=== PATIENT | male | born 1940 | race Caucasian/White ===

== ENCOUNTER 2020-01-02 17:08 | Outpatient (CLI) | payer MEDICARE, SELFPAY ==
[2020-01-02 17:36] LABS: Basophils Percent Auto 0.8 % (0.2-1.2); Eosinophils Absolute Auto 0.1 K/mm3 (0-0.3); Eosinophils Percent Auto 1.4 % (0-4.4); Hematocrit 40.9 % (42.0-52.0); Hemoglobin 14.9 g/dL (14.0-18.0); Immature Granulocyte Absolute 0.01 K/mm3 (0.00-0.031); Immature Granulocyte Percent A 0.2 % (0-0.5); Lymphocytes Absolute Auto 1.87 K/mm3 (0.9-3.2); Lymphocytes Percent Auto 37.5 % (18.3-44.2); Mean Corpuscular HGB Conc 36.4 g/dl (32-36); Mean Corpuscular Hemoglobin 31.7 pg (26-34); Mean Platelet Volume 9.8 fl (7.4-10.4); Monocytes Absolute Auto 0.5 K/mm3 (0.1-0.6); Monocytes Percent Auto 9.4 % (2.6-8.5); Neutrophils Absolute Auto 2.5 K/mm3 (1.3-6.7); Neutrophils Percent Auto 50.7 % (45.5-73.1); Platelet Count Result 141 k/mm3 (150-375); Red Cell Distribution Width 12.7 % (11.5-14.5)
[2020-01-02 17:52] LABS: Alanine Aminotransferase 28 U/L (4-50); Albumin Level 4.3 g/dL (3.5-5.1); Alkaline Phosphatase 66 U/L (38-126); Anion Gap 6 mmol/L (8-16); Aspartate Amino Transferase 30 U/L (17-59); Bilirubin,Total 1.2 mg/dL (0.2-1.3); Blood Urea Nitrogen 16 mg/dL (9-20); Calcium 8.7 mg/dL (8.4-10.2); Carbon Dioxide 30 mmol/L (22-30); Chloride 104 mmol/L (98-107); Cholesterol 142 mg/dL (0-200); Estimated Glomerular Filt Rate > 60; Glucose 126 mg/dL (75-110); HDL Direct 30 mg/dL; Potassium 3.5 mmol/L (3.4-5.0); Sodium 140 mmol/L (137-145); Triglycerides 239 mg/dL (<150)
[2020-01-02 18:05] LABS: LDL Cholesterol Direct 83 mg/dL
[2020-01-02 18:14] LABS: Hemoglobin A1C 5.1 % (<5.7)
[2020-01-02 18:25] LABS: Prostate Specific Antigen 0.3 ng/mL (< OR = 4.0); Thyroid Stimulating Hormone 0.922 uIU/mL (0.465-4.680)
[2020-01-02 18:48] LABS: Vitamin D 25 Hydroxy 44.4 ng/mL
[2020-01-02 19:00] LABS: Folic Acid 14.4 ng/mL (2.76->20)
== END 2020-01-02 17:09 | disposition home or self-care (01) ==
PROVIDERS: PCP Internal Medicine; Visit Provider Internal Medicine
DX: E55.9 Vitamin D deficiency, unspecified (principal); E78.49 Other hyperlipidemia; R53.83 Other fatigue; R73.9 Hyperglycemia, unspecified; Z12.5 Encounter for screening for malignant neoplasm of prostate
CPT/HCPCS: 36415; 80053; 80061; 82306; 82607; 82746; 83036; 84153; 84443; 85025; G0103

== ENCOUNTER 2020-01-23 07:07 | Outpatient (CLI) | payer MEDICARE, SELFPAY ==
--- NOTE | 2020-01-23 | EST_ITS ---
Patient Info Name: Karthik Carrera Age: 80 years : 1940 Gender: Male Ht: 69 in Wt: 200 lbs BSA: 2.12 m2 Exam Date: 01/23/2020 9:03 AM Exam Location: [facility] Patient Status: Outpatient Admit Date: 01/23/2020 Staff Ordering Physician: Eliazar Case DO Attending Provider: Eliazar Case DO Exercise Technologist: Jose Mathis RDCS, RT Exercise Physician: El Hoffman DO Exam Type: CA stress sarthak w NM Study Info A regadenoson stress test was performed. Summary 1. 1. Negative lexiscan stress test for ischemic ST changes by ECG criteria. 2. 2. Baseline hypertension. 3. 3. Nuclear scan to follow and will be reported separately. Please correlate with it. 4. 4. Patient informed of the above results. Protocol: Lexiscan Stress ECG Details Stage: REST Duration (min): 6 min : 33 sec HR (bpm): 55 SBP (mmHg): 200 DBP (mmHg): 84 Stage: STAGE 1 Duration (min): 0 min : 59 sec HR (bpm): 78 SBP (mmHg): 200 DBP (mmHg): 84 Stage: RECOVERY Duration (min): 1 min : 0 sec HR (bpm): 78 SBP (mmHg): 209 DBP (mmHg): 80 Stage: RECOVERY Duration (min): 2 min : 0 sec HR (bpm): 72 SBP (mmHg): 209 DBP (mmHg): 80 Stage: RECOVERY Duration (min): 3 min : 0 sec HR (bpm): 70 SBP (mmHg): 209 DBP (mmHg): 80 Stage: RECOVERY Duration (min): 3 min : 35 sec HR (bpm): 70 SBP (mmHg): 194 DBP (mmHg): 81 Rest HR: 55 bpm Peak HR: 82 bpm Rest Sys BP: 200 mmHg Peak Sys BP: 209 mmHg Max Pred HR: 141 bpm % Max Pred HR: 58 % Target HR: 120 bpm Max RPP: 17,138 bpm*mmHg Termination Reason: Completed protocol Cardiac Symptoms: Shortness of breath Total Time: 1 min : 0 sec Rest Dupont BP: 84 mmHg Peak Dupont BP: 80 mmHg Total Dose: 0.4 mg Resting ECG Sinus rhythm, BRWP, with borderline ST abnormality in high lateral leads. Stress ECG No ST changes. Arrhythmias None. Report Signatures
--- NOTE | ~2020-01-23 | NM_ITS ---
EXAMINATION: NM sarthak stress w perfusion DATE: 01/23/2020 10:44 INDICATION: Chest pain, unspecified. TECHNIQUE: Rest images were obtained following intravenous administration of 10.2 mCi Tc99m tetrofosm in (Myoview). The patient was infused intravenously with Lexiscan (regadenoson). Then, 30.9 mCi Tc99m tetrofosmin (Myoview) was administered intravenously, and stress images were obtained. Data was irvin nstructed into short axis and horizontal and vertical long axis SPECT images. Gated SPECT images were also obtained. COMPARISON: CT abdomen and pelvis 01/29/2014 FINDINGS: There is no definite reversible or fixed perfusion abnormality to suggest ischemia or infar ction. There is no segmental wall motion abnormality. Left ventricular ejection fraction measures 6 9%. IMPRESSION: 1. No definite ischemia or infarct. 2. Normal left ventricular ejection fraction measuring 69%. Reviewed, dictated and finalized at location A.
== END 2020-01-23 07:08 | disposition home or self-care (01) ==
PROVIDERS: PCP Internal Medicine; Visit Provider Internal Medicine
DX: R07.9 Chest pain, unspecified (principal)
CPT/HCPCS: 78452; 93017; A9502; J2785

== ENCOUNTER 2020-02-27 09:58 | Outpatient (CLI) | payer MEDICARE, SELFPAY ==
--- NOTE | ~2020-02-27 | XR_ITS ---
XR_CERV2-3V_CR DATE: 02/27/2020 10:11 INDICATION: Chronic neck and mid back pain TECHNIQUE: AP, open-mouth, lateral views COMPARISON: None FINDINGS: C1 and C2 are normally aligned and the odontoid process is intact. C2-3 interspace is well preserved. There is mild posterior spurring and minimal retrolisthesis at C3-4. There is mild degenerative disc disease at C4-5. There is mild anterolisthesis and mild degenerative spurring at C5-6 There is severe degenerative disease at C6-7. Degenerative changes at the apophyseal and uncovertebral joint joints of the mid and lower cervical s pine. No fracture or dislocation or locked facet or prevertebral soft tissue swelling. IMPRESSION: Degenerative changes Reviewed, dictated and finalized at Location A. Reviewed, dictated and finalized at location A. IMPRESSION: Degenerative changes
--- NOTE | ~2020-02-27 | XR_ITS ---
XR thoracic spine 2V DATE: 02/27/2020 10:11 INDICATION: Mid back pain TECHNIQUE: AP and lateral views COMPARISON: None FINDINGS: Diffuse osteopenia. Diffuse idiopathic skeletal hyperostosis of the thoracic spine. There is moderate probable chronic compression fracture deformity of T11. No other fracture or bone destruction is evident. No paraspinal soft tissue thickening. IMPRESSION: Diffuse osteopenia Diffuse idiopathic skeletal hyperostosis of the thoracic spine Probable chronic compression fracture deformity of T11 Reviewed, dictated and finalized at location A.
== END 2020-02-27 09:59 | disposition home or self-care (01) ==
LOC: ANHLAB 10:00 → ANHIMG 10:03
PROVIDERS: PCP Internal Medicine; Visit Provider Internal Medicine
DX: M54.2 Cervicalgia (principal); G89.29 Other chronic pain; M85.88 Other specified disorders of bone density and structure, other site
CPT/HCPCS: 72040; 72070

== ENCOUNTER → 2020-05-25 06:58 | Outpatient (CLI) | payer MEDICARE, SELFPAY ==
--- NOTE | ~2020-05-25 | MR_ITS ---
EXAMINATION: MR lumbar spine wo con DATE: 05/25/2020 08:39 INDICATION: Lumbar radiculopathy. TECHNIQUE: Magnetic resonance imaging (MRI) of the lumbar spine was performed without intravenous con trast. Sequences included sagittal T2-weighted FSE, sagittal T2-weighted FS FSE, sagittal T1-weighted FSE, and axial T2-weighted FSE. COMPARISON: CT abdomen and pelvis dated 01/29/2014 FINDINGS: Mild cervical levocurvature. 3 mm retrolisthesis T12 on L1, L1-2 millimeters retrolisthesis L2 on L3 and 6 mm anterolisthesis of L4 on L5. Chronic anterior wedging with 20% anterior vertebral body heigh t loss at T11 and <20% anterior vertebral body height loss at T12. There are Schmorl's nodes along a few of the endplates in the lumbar and lower thoracic spine. There are also scattered fibrofatty dege nerative endplate changes with mild heterogeneous red and yellow marrow signal. Severe left-sided dis c height loss at L5-S1. Mild to moderate right-sided predominant disc height loss at L4-L5. Moderate disc height loss at T12-L1 and mild disc height loss at the remaining levels between T10-T11 and L3-L 4. The conus medullaris terminates at L1. There is normal signal in the caudal spinal cord. Vascular disease with degenerative changes along the cephalad and caudal margin of the lumbar spinous processe s. Paravertebral soft tissues are unremarkable. The following disc levels are specifically discussed: T11-T12: Disc is mildly bulging. There is mild bilateral facet osteoarthritis. There is no neural for aminal stenosis. There is mild central canal stenosis. T12-L1: Disc is bulging with annular fissure. There is mild bilateral facet joint osteoarthritis. The re is mild bilateral neural foraminal stenosis. There is mild central canal stenosis. L1-L2: Disc is mildly bulging. There is mild bilateral facet joint osteoarthritis. There is mild bila teral neural foraminal stenosis. There is minimal central canal stenosis. L2-L3: Disc is mildly bulging with superimposed annular fissure and disc extrusion extending for mill imeter caudal to the level of the superior endplate of L3 at the right lateral recess. There is mild bilateral facet joint osteoarthritis. There is mild left and mild to moderate right neural foraminal stenosis. There is mild central canal stenosis along with mild narrowing of the right lateral recess. L3-L4: Disc is bulging. There is mild bilateral facet joint osteoarthritis. There is moderate left an d mild to moderate right neural foraminal stenosis. There is mild central canal stenosis. L4-L5: Disc is bulging. There is severe bilateral facet joint osteoarthritis. There is mild to modera te bilateral neural foraminal stenosis. There is moderate central canal stenosis. L5-S1: Disc is bulging. There is mild right and moderate left facet joint osteoarthritis. There is al so moderate right and moderate to severe left neural foraminal stenosis. There is mild central canal stenosis with mild narrowing of the left lateral recess. IMPRESSION: 1. Moderate to severe lower lumbar predominant spondylosis. Reviewed, dictated and finalized at location B. 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
--- NOTE | ~2020-05-25 | MR_ITS ---
EXAMINATION: MR thoracic spine wo con EXAM DATE: 05/25/2020 08:39 INDICATION: Thoracic back pain. TECHNIQUE: Multi-sequential, multiplanar MR images of the thoracic spine were obtained without contra st. Sagittal T1, T2, T2 fat saturation, axial T2 weighted images reviewed. There is no prior study for comparison. FINDINGS: There is moderate diffuse thoracic disc disease, mild facet arthropathy. Mild diffuse loss of vertebral body heights. There is 3 mm retrolisthesis T12 on L1, 2 mm retrolisthesis of T11 on T12. The vertebral bodies are otherwise aligned. Mild thoracic disc bulges. Thoracic neural foramen and c entral canal are widely patent. The spinal cord signal intensity and intrinsic morphology is normal. No suspicious focal marrow signal abnormalities. Paraspinal soft tissue is unremarkable. IMPRESSION: Moderate thoracic disc disease, mild facet arthropathy. No stenosis. Reviewed, dictated and finalized at location A. 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 No stenosis .
--- NOTE | ~2020-05-25 | MR_ITS ---
EXAMINATION: MR cervical spine wo con DATE: 05/25/2020 08:38 INDICATION: Cervical radiculopathy. TECHNIQUE: Magnetic resonance imaging (MRI) of the cervical spine was performed without intravenous c ontrast. Sequences included sagittal T2-weighted FSE, sagittal T2-weighted FS FSE, sagittal T1-weight ed FSE, axial MERGE, and axial T2-weighted FSE. COMPARISON: Cervical spine radiographs 02/27/2020 FINDINGS: There is 2 mm retrolisthesis of C3 on C4 and 3 mm anterolisthesis of C7 on T1. There is mil d chronic anterior wedging of T1-T4 vertebral bodies. There is severely decreased disc height at C3-C 4, mildly decreased disc height at C5-C6, and moderately decreased disc height at C6-C7 and C7-T1. Th e spinal cord signal intensity is normal. The following disc levels are specifically discussed: C2-C3: The disc does not extend beyond the endplate margin. There is no uncovertebral joint osteoarth ritis. There is severe right and moderate left facet joint osteoarthritis. There is mild bilateral ne ural foraminal stenosis. There is no central canal stenosis. C3-C4: The disc is bulging. There is moderate right and severe left uncovertebral joint osteoarthriti s. There is mild bilateral facet joint osteoarthritis. There is mild right and moderate left neural f oraminal stenosis. There is mild central canal stenosis. C4-C5: The disc is bulging. There is moderate bilateral uncovertebral joint osteoarthritis. There is severe bilateral facet joint osteoarthritis. There is moderate bilateral neural foraminal stenosis. T here is no central canal stenosis. C5-C6: The disc does not extend beyond the endplate margin. There is mild right and severe left uncov ertebral joint osteoarthritis. There is severe bilateral facet joint osteoarthritis. There is mild ri ght and moderate left neural foraminal stenosis. There is mild central canal stenosis. C6-C7: The disc is bulging. There is severe bilateral uncovertebral joint osteoarthritis. There is no facet joint osteoarthritis. There is mild bilateral neural foraminal stenosis. There is mild central canal stenosis. C7-T1: The disc does not extend beyond the endplate margin. There is mild left uncovertebral joint os teoarthritis. There is severe bilateral facet joint osteoarthritis. There is mild bilateral neural fo raminal stenosis. There is mild central canal stenosis. IMPRESSION: 1. Severe cervical spondylosis. Reviewed, dictated and finalized at location A. ICAL REGISTERED NURSE
== END ==
PROVIDERS: PCP Internal Medicine; Visit Provider Nurse Practitioner Adult Health
DX: M54.6 Pain in thoracic spine (principal); M54.16 Radiculopathy, lumbar region; M54.12 Radiculopathy, cervical region; M47.815 Spondylosis without myelopathy or radiculopathy, thoracolumbar region; M47.813 Spondylosis without myelopathy or radiculopathy, cervicothoracic region; M48.03 Spinal stenosis, cervicothoracic region; M47.817 Spondylosis without myelopathy or radiculopathy, lumbosacral region; M48.07 Spinal stenosis, lumbosacral region
CPT/HCPCS: 72141; 72146; 72148

== ENCOUNTER 2020-07-07 09:19 | Outpatient (CLI) | payer MEDICARE, SELFPAY ==
[2020-07-07 09:49] LABS: Basophils Percent Auto 0.8 % (0.2-1.2); Eosinophils Absolute Auto 0.2 K/mm3 (0-0.3); Eosinophils Percent Auto 3.2 % (0-4.4); Hematocrit 41.3 % (42.0-52.0); Immature Granulocyte Absolute 0.01 K/mm3 (0.00-0.031); Immature Granulocyte Percent A 0.2 % (0-0.5); Immature Platelet Fraction Pct 2.6 % (0.9-11.2); Lymphocytes Absolute Auto 1.72 K/mm3 (0.9-3.2); Lymphocytes Percent Auto 34.6 % (18.3-44.2); Mean Corpuscular HGB Conc 36.3 g/dl (32-36); Mean Corpuscular Hemoglobin 31.5 pg (26-34); Mean Corpuscular Volume 86.8 fl (80-100); Mean Platelet Volume 9.2 fl (7.4-10.4); Monocytes Absolute Auto 0.5 K/mm3 (0.1-0.6); Monocytes Percent Auto 10.1 % (2.6-8.5); Neutrophils Absolute Auto 2.5 K/mm3 (1.3-6.7); Neutrophils Percent Auto 51.1 % (45.5-73.1); Platelet Count Result 158 k/mm3 (150-375); Red Blood Count 4.76 M/mm3 (4.6-6.20)
[2020-07-07 10:06] LABS: Alanine Aminotransferase 23 U/L (4-50); Alkaline Phosphatase 75 U/L (38-126); Anion Gap 5 mmol/L (8-16); Aspartate Amino Transferase 28 U/L (17-59); Bilirubin,Total 1.2 mg/dL (0.2-1.3); Blood Urea Nitrogen 19 mg/dL (9-20); Calcium 8.4 mg/dL (8.4-10.2); Carbon Dioxide 30 mmol/L (22-30); Chloride 106 mmol/L (98-107); Estimated Glomerular Filt Rate > 60; Glucose 114 mg/dL (75-110); Potassium 3.8 mmol/L (3.4-5.0); Sodium 141 mmol/L (137-145)
[2020-07-07 11:23] LABS: Hemoglobin A1C 5.4 % (<5.7)
== END 2020-07-07 09:20 | disposition home or self-care (01) ==
PROVIDERS: PCP Internal Medicine; Visit Provider Internal Medicine
DX: R53.83 Other fatigue (principal); I10 Essential (primary) hypertension; R73.9 Hyperglycemia, unspecified
CPT/HCPCS: 36415; 80053; 83036; 85025; 85055

== ENCOUNTER 2020-07-09 09:32 | Outpatient (CLI) | payer MEDICARE, SELFPAY ==
[2020-07-14 00:39] LABS: Metanephrine, Total Urine 414 mcg/24 h (224-832); Metanephrine, Urine 94 mcg/24 h (90-315); Normetanephrine, Urine 320 mcg/24 h (122-676)
== END 2020-07-09 09:33 | disposition home or self-care (01) ==
PROVIDERS: PCP Internal Medicine; Visit Provider Internal Medicine
DX: I10 Essential (primary) hypertension (principal)
CPT/HCPCS: 83835

== ENCOUNTER 2020-12-06 09:30 | Outpatient (CLI) | payer MEDICARE, SELFPAY ==
[2020-12-06 10:03] LABS: Basophils Percent Auto 0.7 % (0.2-1.2); Eosinophils Absolute Auto 0.1 K/mm3 (0-0.3); Eosinophils Percent Auto 2.1 % (0-4.4); Immature Granulocyte Absolute 0.02 K/mm3 (0.00-0.031); Immature Granulocyte Percent A 0.3 % (0-0.5); Lymphocytes Absolute Auto 2.23 K/mm3 (0.9-3.2); Lymphocytes Percent Auto 38.3 % (18.3-44.2); Mean Corpuscular HGB Conc 35.6 g/dl (32-36); Mean Corpuscular Hemoglobin 30.4 pg (26-34); Mean Corpuscular Volume 85.6 fl (80-100); Mean Platelet Volume 9.5 fl (7.4-10.4); Monocytes Absolute Auto 0.6 K/mm3 (0.1-0.6); Monocytes Percent Auto 10.7 % (2.6-8.5); Neutrophils Absolute Auto 2.8 K/mm3 (1.3-6.7); Neutrophils Percent Auto 47.9 % (45.5-73.1); Platelet Count Result 155 k/mm3 (150-375); Red Blood Count 5.26 M/mm3 (4.6-6.20); Red Cell Distribution Width 12.3 % (11.5-14.5); White Blood Count 5.8 K/mm3 (4.5-10.0)
[2020-12-06 10:34] LABS: Alanine Aminotransferase 28 U/L (4-50); Albumin Level 4.4 g/dL (3.5-5.1); Alkaline Phosphatase 78 U/L (38-126); Anion Gap 6 mmol/L (8-16); Aspartate Amino Transferase 33 U/L (17-59); Bilirubin,Total 0.7 mg/dL (0.2-1.3); Blood Urea Nitrogen 14 mg/dL (9-20); Calcium 9.4 mg/dL (8.4-10.2); Carbon Dioxide 29 mmol/L (22-30); Chloride 104 mmol/L (98-107); Cholesterol 146 mg/dL (0-200); Estimated Glomerular Filt Rate > 60; Glucose 121 mg/dL (65-110); HDL Direct 33 mg/dL; Magnesium 1.7 mg/dL (1.6-2.3); Potassium 3.9 mmol/L (3.4-5.0); Sodium 139 mmol/L (137-145); Triglycerides 195 mg/dL (<150)
[2020-12-06 10:46] LABS: LDL Cholesterol Direct 75 mg/dL
[2020-12-06 11:07] LABS: Prostate Specific Antigen 0.4 ng/mL (< OR = 4.0)
[2020-12-06 11:31] LABS: Vitamin D 25 Hydroxy 62.4 ng/mL
[2020-12-06 11:33] LABS: Hemoglobin A1C 5.5 % (<5.7)
== END 2020-12-06 09:31 | disposition home or self-care (01) ==
PROVIDERS: PCP Internal Medicine; Visit Provider Internal Medicine
DX: E55.9 Vitamin D deficiency, unspecified (principal); R53.83 Other fatigue; I10 Essential (primary) hypertension; Z12.5 Encounter for screening for malignant neoplasm of prostate; E78.49 Other hyperlipidemia; R73.9 Hyperglycemia, unspecified
CPT/HCPCS: 36415; 80053; 80061; 82088; 82306; 82607; 82746; 83036; 83735; 84153; 84244; 84443; 85025; G0103

== ENCOUNTER 2021-01-10 08:42 | Outpatient (CLI) | payer MEDICARE, SELFPAY ==
[2021-01-10 09:31] LABS: Alanine Aminotransferase 26 U/L (4-50); Albumin Level 4.3 g/dL (3.5-5.1); Alkaline Phosphatase 66 U/L (38-126); Anion Gap 10 mmol/L (8-16); Aspartate Amino Transferase 28 U/L (17-59); Bilirubin,Total 1.1 mg/dL (0.2-1.3); Blood Urea Nitrogen 18 mg/dL (9-20); Calcium 9.1 mg/dL (8.4-10.2); Carbon Dioxide 30 mmol/L (22-30); Chloride 100 mmol/L (98-107); Estimated Glomerular Filt Rate > 60; Glucose 120 mg/dL (65-110); Potassium 3.3 mmol/L (3.4-5.0); Sodium 140 mmol/L (137-145)
== END 2021-01-10 08:43 | disposition home or self-care (01) ==
PROVIDERS: PCP Internal Medicine; Visit Provider Internal Medicine
DX: I10 Essential (primary) hypertension (principal)
CPT/HCPCS: 36415; 80053

== ENCOUNTER 2021-03-03 00:06 | Emergency (ER) | payer MEDICARE, SELFPAY ==
--- NOTE | ~2021-03-03 | XR_ITS ---
EXAMINATION: XR chest 1V portable DATE: 03/03/2021 00:33 INDICATION: Cough TECHNIQUE: frontal and lateral views of the chest were obtained. COMPARISON: Chest radiograph dated 07/02/2015 FINDINGS: Unchanged mild streaky lingular atelectasis/scarring at the lateral left lung base. No other airspace opacities, pulmonary edema, pleural effusion or pneumothorax. The cardiomediastinal silhouette is no rmal. Cholecystectomy clips in right upper quadrant. IMPRESSION: 1. Chronic mild lingular atelectasis/scarring. No acute cardiopulmonary disease. Reviewed, dictated and finalized at location A. IMPRESSION: 1. Chronic mild lingular atelectasis/scarring. No acute cardiopulmonary disease .
[2021-03-03 00:11] VITALS: BP 191/74; PULSE 60; RESP 15; TEMP 36.7; O2SAT 99
--- NOTE | 2021-03-03 00:48 | ECG_ITS ---
Measurements Intervals [place] Rate: 70 P: 19 ID: [id number] QRS: -29 QRSD: 85 T: 66 QT: 420 QTc: 454 Interpretive Statements SINUS RHYTHM WITH FIRST DEGREE AV BLOCK LEFT VENTRICULAR HYPERTROPHY AND ST-T CHANGE POOR R WAVE PROGRESSION, ANTERIOR LEADS BASELINE ARTIFACT- I, III, AVL ABNORMAL ECG Electronically Signed On 03-03-2021 6:37:34 CDT by El Hoffman D.O.
[2021-03-03] MEDS: ALBUTEROL SULFATE NEB 2.5 MG/0.5 ML INH INHALATION (00:59)
[2021-03-03 01:01] VITALS: PULSE 59; RESP 22
[2021-03-03 01:08] VITALS: PULSE 58; RESP 21
[2021-03-03 01:25] LABS: Basophils Absolute Auto 0.1 K/mm3 (0.0-0.1); Basophils Percent Auto 0.7 % (0.2-1.2); Eosinophils Absolute Auto 0.1 K/mm3 (0-0.3); Eosinophils Percent Auto 1.4 % (0-4.4); Hematocrit 42.1 % (42.0-52.0); Immature Granulocyte Absolute 0.02 K/mm3 (0.00-0.031); Immature Granulocyte Percent A 0.3 % (0-0.5); Lymphocytes Absolute Auto 1.88 K/mm3 (0.9-3.2); Lymphocytes Percent Auto 24.6 % (18.3-44.2); Mean Corpuscular HGB Conc 35.6 g/dl (32-36); Mean Corpuscular Hemoglobin 32.7 pg (26-34); Mean Corpuscular Volume 91.7 fl (80-100); Mean Platelet Volume 9.8 fl (7.4-10.4); Monocytes Absolute Auto 0.7 K/mm3 (0.1-0.6); Monocytes Percent Auto 9.6 % (2.6-8.5); Neutrophils Absolute Auto 4.9 K/mm3 (1.3-6.7); Neutrophils Percent Auto 63.4 % (45.5-73.1); Platelet Count Result 142 k/mm3 (150-375); Red Blood Count 4.59 M/mm3 (4.6-6.20); Red Cell Distribution Width 14.2 % (11.5-14.5); White Blood Count 7.6 K/mm3 (4.5-10.0)
[2021-03-03 01:38] LABS: Anion Gap 7 mmol/L (8-16); Blood Urea Nitrogen 12 mg/dL (9-20); Calcium 9.2 mg/dL (8.4-10.2); Carbon Dioxide 32 mmol/L (22-30); Chloride 103 mmol/L (98-107); Estimated Glomerular Filt Rate > 60; Glucose 113 mg/dL (65-110); Magnesium 1.9 mg/dL (1.6-2.3); Potassium 4.4 mmol/L (3.4-5.0); Sodium 142 mmol/L (137-145)
[2021-03-03 01:40] LABS: INR 1.1; Prothrombin Time 14.1 Seconds (11.1-14.7)
[2021-03-03 01:41] LABS: Partial Thromboplastin Time 31.5 SECONDS (22.3-36.8)
[2021-03-03 01:50] LABS: NT Pro B Type Natriuretic Pept 461 pg/mL (5-100); Troponin I < 0.012 ng/mL (0.000-0.034)
[2021-03-03 02:25] VITALS: O2SAT 99
--- NOTE | 2021-03-03 02:44 | ED.SOB ---
HPI - SOB/Dyspnea General Chief Complaint: Upper Respiratory Infection Stated Complaint: headache. cough. runny nose. Time Seen by Provider: 03/03/21 00:14 Source: patient Mode of arrival: ambulatory Limitations: no limitations History of Present Illness HPI Narrative: 81-year-old male with past medical history of hypertension, high cholesterol, neck neck pain and back pain arrives complaining of headache, cough, runny nose and runny eyes as well as shortness of breath for the last 3 days. Patient has had all vaccinations including influenza and Covid x2 and is due for his booster soon. No known sick contacts. No fever, no chills, no nausea no vomiting. No chest pain does get short of breath with walking, also complaining of increased swelling of lower extremities bilaterally. No recent surgeries no recent travel. Patient has been taking [id number] cough medicine without relief. Shortness of breath is worse with exertion and worse with lying flat, cough is worth with exertion and worse with lying flat. Arrives afebrile speaking full sentences without difficulty. Related Data Home Medications Medication Instructions Recorded Confirmed multivitamin 1 tablet PO DAILY 07/09/19 12/15/20 Allergies Allergy/AdvReac Type Severity Reaction Status Date / Time chocolate flavor Allergy Severe throat Verified 03/03/21 00:13 swell amoxicillin [From Augmentin] Allergy Intermediate Rash Verified 03/03/21 00:13 clavulanic acid Allergy Intermediate Rash Verified 03/03/21 00:13 [From Augmentin] Review of Systems Review of Systems: CONSTITUTIONAL: no fever, no weight loss, no confusion EYES: no vision changes, no eye pain, watery discharge from eye ENT: positive rhinorrhea, no sore throat, no difficulty swallowing CARDIOVASCULAR: no chest pain, positive leg edema, no palpitations RESPIRATORY: postive cough, positive GLASER, no hemoptysis GASTROINTESTINAL: no abdominal pain, no nausea, no vomiting, no diarrhea GENITOURINARY: no flank pain, no dysuria, no hematuria SKIN: no rash, no jaundice MUSCULOSKELETAL: no back pain, no trauma. NEUROLOGIC: No headache, no dizziness, no focal weakness PSYCHIATRIC: No hallucinations, no suicidal ideation [facility] Family History Family History Mother Cerebrovascular accident Father Patient's father is Social History Social History Smoking status: Never smoker Second hand tobacco smoke exposure: No Alcohol intake: never Substance use: never Exam Narrative: General: alert, afebrile, answering all questions appropriately Head: normocephalic, atraumatic Eyes: EOMI bilaterally, anicteric, no injection ENT: moist mucous membranes, oropharynx patent, nasal congestion noted Neck: supple, trachea midline, no JVD Chest: equal chest rise bilaterally, no chest wall trauma noted Lungs: decreased BS bilaterally, respirations unlabored CV: regular rate, 1-2 +VIVEK B, calf size equal bilaterally Abd: soft, non-distended, non-tender, no rebound, no gaurding, negative Mathis's : no CVA tenderness B, bladder non-distended EXT: no deformity noted, moving all extremities equally Skin: warm, dry, no pallor Neuro: alert, oriented x 3; CN 2-12 grossly intact, no dysarthria Psych: affect appropriate, thought content normal Course Course Emergency Course: The patient presents with upper respiratory symptoms 97-99% on room air at rest complains of nasal congestion eye watering and dry cough. Presentation is not consistent with acute cardiac etiologies to include ACS he has a nonischemic EKG and unremarkable Trope, although his BNP is elevated there is no evidence of vascular congestion on his x-ray there is no pericardial effusion no tamponade. Presentation not consistent with acute respiratory etiologies including PE PERC negative no evidence on x-ray of pneumothorax ast
[2021-03-03] MEDS: FUROSEMIDE INJ 40 MG/4 ML VIAL IV PUSH (02:47)
[2021-03-03 04:04] VITALS: BP 180/90; PULSE 77; RESP 16; O2SAT 99
--- NOTE | 2021-03-03 04:08 | PC.NURSE ---
erp aware of high bp
--- NOTE | 2021-03-03 07:12 | PC.NURSE ---
Covid Swab was not obtained
== END 2021-03-03 04:08 | disposition home or self-care (01) ==
PROVIDERS: Emergency Provider Emergency Medicine; PCP Internal Medicine
DX: J06.9 Acute upper respiratory infection, unspecified (principal); R06.00 Dyspnea, unspecified; I10 Essential (primary) hypertension; E78.00 Pure hypercholesterolemia, unspecified
CPT/HCPCS: 36415; 71045; 80048; 83735; 83880; 84484; 85025; 85610; 85730; 93005; 94640; 96374; 99284; J1940

== ENCOUNTER → 2021-03-07 09:53 | Outpatient (CLI) | payer MEDICARE, SELFPAY ==
[2021-03-07 18:59] LABS: SARS-CoV-2 RNA PCR Negative
== END ==
PROVIDERS: PCP Internal Medicine; Visit Provider Internal Medicine
DX: R05.9 Cough, unspecified (principal); Z20.822 Contact with and (suspected) exposure to COVID-19
CPT/HCPCS: C9803; U0003; U0005

== ENCOUNTER 2021-03-21 08:27 | Outpatient (CLI) | payer MEDICARE, SELFPAY ==
--- NOTE | 2021-03-21 08:54 | ECHO_ITS ---
Patient Info Name: Karthik Carrera Age: 81 years : 1940 Gender: Male Ht: 69 in Wt: 190 lbs BSA: 2.07 m2 HR: 50 bpm BP: 146 / 81 mmHg Technical Quality: Fair Exam Date: 03/21/2021 9:06 AM Exam Location: [facility] Patient Status: Outpatient Admit Date: 03/21/2021 Staff Ordering Physician: Brett Hernandez PA-C Taxation Accountant: Tania Kaplan RDCS Attending Provider: Brett Hernandez PA-C Referring Physician: Mary MARKS; Exam Type: CA echo doppler color flow Study Info Indications R06.02 - Shortness of breath Complete two-dimensional, color flow and Doppler transthoracic echocardiogram is performed. Summary 1. Complete two-dimensional, color flow and Doppler transthoracic echocardiogram is performed. 2. Left ventricular chamber dimension is normal. 3. Ventricular septum is sigmoid shaped. No LVOT obstruction. 4. Left ventricular systolic function is normal, estimated at 60-65%. 5. There is mildly increased left ventricular wall thickness. 6. The left ventricular diastolic function is grade I diastolic dysfunction. 7. E/e' 15 is elevated. 8. No pulmonary hypertension, estimated pulmonary arterial systolic pressure is 35 mmHg. Left Ventricle E/e' 15 is elevated. Ventricular septum is sigmoid shaped. No LVOT obstruction. Left ventricular chamber dimension is normal. Left ventricular systolic function is normal, estimated at 60-65%. There is mildly increased left ventricular wall thickness. The left ventricular diastolic function is grade I diastolic dysfunction. Right Ventricle Right ventricular chamber dimension is normal. Right ventricular systolic function is normal. Left Atria Left atrial chamber dimension is normal. Right Atria Right atrial chamber dimension is normal. Aortic Valve The aortic valve is trileaflet. There is no aortic valve stenosis. There is no aortic valve regurgitation. Pulmonic Valve There is no pulmonic regurgitation. Mitral Valve There is no mitral valve stenosis. There is no mitral valve regurgitation. Tricuspid Valve There is no tricuspid valve regurgitation. No pulmonary hypertension, estimated pulmonary arterial systolic pressure is 35 mmHg. Pericardium/Pleural There is no pericardial effusion. Inferior Vena Cava Normal inferior vena cava with >50% collapse upon inspiration consistent with normal right atrial pressure, 5 mmHg. Aorta The aortic root size at the sinus of Valsalva is normal. Left Ventricular Outflow Tract Name Value Normal LVOT 2D LVOT Diameter 2.1 cm LVOT Doppler LVOT Peak Gradient 5 mmHg LVOT Mean Gradient 3 mmHg LVOT VTI 28 cm LVOT VTI/AV VTI Ratio 0.8 LVOT Stroke Volume 101 ml LVOT CO 5.3 l/min LVOT CI 2.6 l/min/m2 Pulmonic Valve Name Value Normal
== END 2021-03-21 08:28 | disposition home or self-care (01) ==
LOC: ANHCARD 08:31
PROVIDERS: PCP Internal Medicine; Visit Provider Physician Assistant
DX: R79.89 Other specified abnormal findings of blood chemistry (principal); R06.02 Shortness of breath
CPT/HCPCS: 93306

== ENCOUNTER 2021-04-01 09:21 | Outpatient (CLI) | payer MEDICARE, SELFPAY ==
[2021-04-01 10:28] LABS: Alanine Aminotransferase 26 U/L (4-50); Albumin Level 4.3 g/dL (3.5-5.1); Alkaline Phosphatase 76 U/L (38-126); Anion Gap 5 mmol/L (8-16); Aspartate Amino Transferase 30 U/L (17-59); Blood Urea Nitrogen 14 mg/dL (9-20); Carbon Dioxide 30 mmol/L (22-30); Chloride 101 mmol/L (98-107); Estimated Glomerular Filt Rate > 60; Glucose 112 mg/dL (65-110); Potassium 4.3 mmol/L (3.4-5.0); Sodium 136 mmol/L (137-145)
== END 2021-04-01 09:22 | disposition home or self-care (01) ==
LOC: ANHLAB 09:26
PROVIDERS: PCP Internal Medicine; Visit Provider Internal Medicine
DX: E87.6 Hypokalemia (principal)
CPT/HCPCS: 36415; 80053

== ENCOUNTER 2021-12-02 08:50 | Outpatient (CLI) | payer MEDICARE, SELFPAY ==
[2021-12-02 09:18] LABS: Basophils Percent Auto 0.5 % (0.2-1.2); Eosinophils Absolute Auto 0.1 K/mm3 (0-0.3); Eosinophils Percent Auto 1.7 % (0-4.4); Hematocrit 32.1 % (42.0-52.0); Hemoglobin 11.3 g/dL (14.0-18.0); Immature Granulocyte Absolute 0.02 K/mm3 (0.00-0.031); Immature Granulocyte Percent A 0.3 % (0-0.5); Lymphocytes Absolute Auto 1.57 K/mm3 (0.9-3.2); Lymphocytes Percent Auto 24.1 % (18.3-44.2); Mean Corpuscular HGB Conc 35.2 g/dl (32-36); Mean Corpuscular Hemoglobin 32.2 pg (26-34); Mean Corpuscular Volume 91.5 fl (80-100); Mean Platelet Volume 10.1 fl (7.4-10.4); Monocytes Absolute Auto 0.6 K/mm3 (0.1-0.6); Monocytes Percent Auto 9.2 % (2.6-8.5); Neutrophils Absolute Auto 4.2 K/mm3 (1.3-6.7); Neutrophils Percent Auto 64.2 % (45.5-73.1); Platelet Count Result 125 k/mm3 (150-375); Red Blood Count 3.51 M/mm3 (4.6-6.20); Red Cell Distribution Width 13.2 % (11.5-14.5); White Blood Count 6.5 K/mm3 (4.5-10.0)
[2021-12-02 09:33] LABS: Cholesterol 115 mg/dL (0-200); HDL Direct 33 mg/dL; Triglycerides 72 mg/dL (<150)
[2021-12-02 09:45] LABS: LDL Cholesterol Direct 63 mg/dL
[2021-12-02 09:47] LABS: Hemoglobin A1C 5.2 % (<5.7)
[2021-12-02 10:02] LABS: Vitamin D 25 Hydroxy 75.4 ng/mL
[2021-12-02 10:05] LABS: Prostate Specific Antigen 0.6 ng/mL (< OR = 4.0); Thyroid Stimulating Hormone 0.952 uIU/mL (0.465-4.680)
[2021-12-02 10:40] LABS: Folic Acid 12.2 ng/mL (2.76->20)
== END 2021-12-02 08:51 | disposition home or self-care (01) ==
PROVIDERS: PCP Internal Medicine; Visit Provider Internal Medicine
DX: R73.9 Hyperglycemia, unspecified (principal); I10 Essential (primary) hypertension; E78.49 Other hyperlipidemia; E55.9 Vitamin D deficiency, unspecified; R53.83 Other fatigue; Z12.5 Encounter for screening for malignant neoplasm of prostate
CPT/HCPCS: 36415; 80061; 82306; 82607; 82746; 83036; 84153; 84443; 85025; G0103

== ENCOUNTER 2022-02-16 08:22 | Inpatient (IN) | payer MEDICARE, SELFPAY ==
[2022-02-16] VITALS (29 sets, daily range): BP systolic 122–157; BP diastolic 44–72; PULSE 54–72; RESP 11–22; TEMP 36.4–36.7; O2SAT 96–100; BMI 29.2
--- NOTE | ~2022-02-16 | CT_ITS ---
EXAMINATION: CT brain wo con INDICATION: Head injury COMPARISON: None TECHNIQUE: Standard unenhanced head CT. The dose-length product (DLP) was 605.33 mGy-cm. The mA was a djusted according to patient size. Iterative reconstruction technique was employed. FINDINGS: There is no acute intraparenchymal hemorrhage. No evidence of mass lesion. No evidence of a cute infarction. There is mild periventricular and subcortical hypodensity probably related to small vessel ischemic disease. There is mild prominence of the sulci and ventricles related to cerebral atr ophy. Intracranial calcified cerebral atherosclerosis is noted. There are no extra-axial collections. There is no mass effect or midline shift. The orbits and soft tissues are unremarkable. There is com plete opacification of the right maxillary sinus with wall thickening of the sinus, consistent with c hronic sinusitis. Surgical changes are noted in the right maxillary sinus. IMPRESSION: 1. No acute intracranial abnormality. 2. Age related findings. 3. Chronic right maxillary sinusitis. Reviewed, dictated and finalized at location B.
--- NOTE | ~2022-02-16 | XR_ITS ---
EXAMINATION: XR wrist RT 2V DATE: 02/16/2022 18:30 INDICATION: Right wrist pain. Fall. TECHNIQUE: 4 views of right wrist were obtained. COMPARISON: None. FINDINGS: Bone alignment is normal. No fracture. There is mild osteoarthritis of first carpometacarpa l joint and third metacarpophalangeal joint. Curvilinear densities overlie the soft tissues radial to the distal radius. IMPRESSION: 1. Mild polyarticular osteoarthritis. 2. Curvilinear densities overlying the soft tissues at the radial side of the wrist, which may be for eign bodies or surgical change. Reviewed, dictated and finalized at location A. IMPRESSION: 1. Mild polyarticular osteoarthritis. 2. Curvilinear densities overlying the soft tissues at the radial side of the w rist, which may be foreign bodies or surgical change.
--- NOTE | ~2022-02-16 | XR_ITS ---
EXAMINATION: XR chest 2V DATE: 02/16/2022 10:14 INDICATION: Transient alteration of awareness TECHNIQUE: AP and lateral views of the chest are obtained. COMPARISON: 03/03/2021 FINDINGS: The lungs are free of acute opacities. No pleural effusion or pneumothorax. The cardiomedia stinal silhouette is normal. There are bridging osteophytes at multiple levels in the spine, consiste nt with diffuse idiopathic skeletal hyperostosis (DISH). Surgical clips in the right upper quadrant a re likely from prior cholecystectomy. IMPRESSION: 1. No acute cardiopulmonary abnormality. Reviewed, dictated and finalized at location B.
--- NOTE | ~2022-02-16 | US_ITS ---
EXAMINATION: US carotid duplex BI DATE: 02/17/2022 08:31 INDICATION: Dizziness. Syncope. TECHNIQUE: Grayscale, color Doppler, and pulsed Doppler images of the cervical carotid arteries were obtained. The degree of vessel stenosis is placed in one of the following categories: normal, <50%, 5 0-69%, >=70% but less than near-occlusion, near-occlusion, or total occlusion. Note that percent sten osis relative to normal distal artery lumen diameter is indirectly measured from velocity measurement s as described by Wally, et al. Radiology 2003; 229:340-346. Notes: Normal: Peak systolic velocity <125 centimeters/sec and no plaque <50%. Peak systolic velocity <125 ( EDV <40; ICA/CCA PSV ratio <2.0; used these factors only a tandem lesions or low cardiac output or co ntralateral disease) 50-69 %: PSV 125-230 (EDV 40-100; ratio 2-4) >= 70% but less than near occlusion: PSV greater than 230 (EDV > 100; ratio> 4.0) Near Occlusion: PSV that is variable; markedly narrowed lumen Occlusion: Absent flow on color/spectral Doppler and no lumen on castañeda scale. COMPARISON: None. FINDINGS: RIGHT: The right common carotid artery (CCA) peak systolic velocity (PSV) is 87 cm/s. The right internal car otid artery (ICA) PSV is 85 cm/s. The right ICA end-diastolic velocity (EDV) is 23 cm/s. The right IC A/CCA PSV ratio is 1.0. The external carotid artery (ECA) PSV is 117 cm/s. There is antegrade flow in the right vertebral artery. LEFT: The left CCA PSV is 89 cm/s. The left ICA PSV is 80 cm/s. The left ICA EDV is 20 cm/s. The left ICA/C CA PSV ratio is 0.9. The ECA PSV is 90 cm/s. There is antegrade flow in the left vertebral artery. IMPRESSION: 1. Less than 50% stenosis in the right internal carotid artery by sonographic criteria. 2. Less than 50% stenosis in the left internal carotid artery by sonographic criteria. Reviewed, dictated and finalized at location A. IMPRESSION: 1. Less than 50% stenosis in the right internal carotid artery by sonographic madhuri hu. 2. Less than 50% stenosis in the left internal carotid artery by sonographic daly savage.
--- NOTE | 2022-02-16 08:34 | ECG_ITS ---
Measurements Intervals [place] Rate: 66 P: 20 AR: 226 QRS: -30 QRSD: 88 T: 14 QT: 452 QTc: 476 Interpretive Statements SINUS RHYTHM WITH FIRST DEGREE AV BLOCK LEFT VENTRICULAR HYPERTROPHY AND ST-T CHANGE [VOLTAGE CRITERIA PLUS ST/T ABNORMALITY] POOR R-WAVE PROGRESSION ABNORMAL ECG COMPARED TO ECG 03/03/2021 02:14:53 NO SIGNIFICANT CHANGES Electronically Signed On 02-16-2022 14:56:09 CDT by Robin Newman M.D.
[2022-02-16 08:53] LABS: Basophils Percent Auto 0.6 % (0.2-1.2); Eosinophils Absolute Auto 0.1 K/mm3 (0-0.3); Eosinophils Percent Auto 1.7 % (0-4.4); Hematocrit 34.6 % (42.0-52.0); Hemoglobin 12.6 g/dL (14.0-18.0); Immature Granulocyte Absolute 0.03 K/mm3 (0.00-0.031); Immature Granulocyte Percent A 0.6 % (0-0.5); Lymphocytes Absolute Auto 1.61 K/mm3 (0.9-3.2); Lymphocytes Percent Auto 30.8 % (18.3-44.2); Mean Corpuscular HGB Conc 36.4 g/dl (32-36); Mean Corpuscular Hemoglobin 31.8 pg (26-34); Mean Corpuscular Volume 87.4 fl (80-100); Mean Platelet Volume 9.5 fl (7.4-10.4); Monocytes Absolute Auto 0.5 K/mm3 (0.1-0.6); Monocytes Percent Auto 9.6 % (2.6-8.5); Neutrophils Percent Auto 56.7 % (45.5-73.1); Platelet Count Result 127 k/mm3 (150-375); Red Blood Count 3.96 M/mm3 (4.6-6.20); Red Cell Distribution Width 12.9 % (11.5-14.5); White Blood Count 5.2 K/mm3 (4.5-10.0)
[2022-02-16 09:16] LABS: Alanine Aminotransferase 25 U/L (6-50); Albumin Level 4.2 g/dL (3.5-5.1); Alkaline Phosphatase 63 U/L (38-126); Anion Gap 9 mmol/L (8-16); Aspartate Amino Transferase 28 U/L (17-59); Bilirubin,Total 1.1 mg/dL (0.2-1.3); Blood Urea Nitrogen 17 mg/dL (9-20); Calcium 7.6 mg/dL (8.4-10.2); Carbon Dioxide 29 mmol/L (22-30); Chloride 101 mmol/L (98-107); Estimated CRCL calculation 47 ml/min; Estimated Glomerular Filt Rate > 60; Glucose 120 mg/dL (65-110); Potassium 2.7 mmol/L (3.4-5.0); Sodium 139 mmol/L (137-145)
--- NOTE | 2022-02-16 09:37 | PC.NURSE ---
EDP Narciso notified of patient's presentation and potassium level.
--- NOTE | 2022-02-16 09:49 | ED.GENADULT ---
HPI - General Adult General Chief complaint: Fall Stated complaint: dizziness x 2 days, glf yesterday with loc Time Seen by Provider: 02/16/22 09:39 History of Present Illness HPI narrative: 82-year-old male with a history of high blood pressure and chronic dizziness presents to the emergency room for evaluation of a fall from standing position following a syncopal episode. Patient states that he was walking out to the mailbox experiencing dizziness, when he had a syncopal episode. Patient is unsure as to how long he passed out for. Was able to pick himself up off the driveway and walk back into the house without further incident. Patient states he suffers from chronic dizziness and that his PCP is aware. States the dizziness is worse with sudden movements and positional changes. Patient denies chest pain, shortness of breath or difficulty breathing. Related Data Home Medications Medication Instructions Recorded Confirmed multivitamin (Multiple Vitamins 1 tablet PO DAILY 07/09/19 12/14/21 tablet) Allergies Allergy/AdvReac Type Severity Reaction Status Date / Time chocolate flavor Allergy Severe throat Verified 12/14/21 08:39 swell amoxicillin [From Augmentin] Allergy Intermediate Rash Verified 12/14/21 08:39 clavulanic acid Allergy Intermediate Rash Verified 12/14/21 08:39 [From Augmentin] Review of Systems Review of Systems: CONSTITUTIONAL: Denies fever, chills, or sweats. EYES: Denies visual changes, redness, or discharge. ENT: Denies rhinorrhea, congestion, sore throat, or otalgia. CARDIOVASCULAR: Denies chest pain, palpitations, or edema. RESPIRATORY: Denies cough or dyspnea. GASTROINTESTINAL: Denies abdominal pain, nausea, vomiting, or diarrhea. GENITOURINARY: Denies dysuria or hematuria. SKIN: Reports abrasions to bilateral knees and elbows MUSCULOSKELETAL: Reports bilateral elbow and knee pain NEUROLOGIC: Denies headache, numbness, dizziness, or weakness. PSYCHIATRIC: Denies anxiety or depression. [facility] Family History Family History Mother Cerebrovascular accident Father Patient's father is Social History Social History Smoking status: Never smoker Second hand tobacco smoke exposure: No Alcohol intake: never Substance use: never Exam Narrative: GENERAL: Well-appearing, well-nourished, no physical limitations, and in no acute distress. HEAD: Normocephalic, atraumatic. EYES: Conjunctivae normal, PERRLA and EOMI. ENT: External nose normal, Nares clear, no rhinorrhea or epistaxis. Mucous membranes moist. Oropharynx without tonsillar hypertrophy exudate or other lesions. External ears normal, bilateral TMs normal bilaterally NECK: Supple. No meningeal signs. No adenopathy or masses. No carotid bruits or JVD CHEST: Clear to auscultation. No respiratory distress. No wheezes rales or rhonchi. HEART: Regular rate and rhythm. No murmur heard. Normal peripheral pulses. ABDOMEN: Soft, nontender, nondistended, normal active bowel sounds. BACK: No CVA tenderness; No cervical/thoracic/lumbar tenderness, step-offs, bony abnormality; FROM EXTREMITIES: Normal range of motion. No edema. No clubbing or cyanosis SKIN: Warm, dry, no rash. Abrasions noted to bilateral elbows, bilateral knees NEURO: No focal deficits. Alert and oriented x3. MAEW. CN's II-XI intact bilaterally, normal gait PSYCH: Cooperative. Normal mood and affect. Course Vital Signs Vital signs: Vital Signs Temperature 36.6 C 02/16/22 08:26 Pulse Rate 71 02/16/22 08:26 Respiratory Rate 18 02/16/22 08:26 Blood Pressure 157/72 H 02/16/22 08:26 Pulse Oximetry 99 02/16/22 08:26 Oxygen Delivery Room Air 02/16/22 08:26 Temperature 36.6 C 02/16/22 08:26 Pulse Rate 68 02/16/22 12:00 Respiratory Rate 21 H 02/16/22 12:15 Blood Pressure 144/61 H 02/16/22 11:31 Pulse Oximetry 96
[2022-02-16 09:58] LABS: Add Urine Microscopic? NO; Appearance Urine Clear (Clear); Bilirubin Urine Negative (Negative); Blood Urine Negative (Negative); Color Urine Straw (Yellow); Glucose Urine UA Negative (Negative); Ketones Urine Negative (Negative); Leukocyte Esterase Ur Negative LEU/UL (Negative); Nitrate Urine Negative (Negative); Protein Urine Negative (Negative); Specific Grav Ur 1.009 (1.001-1.035); Urobilinogen Urine Negative mg/dL (<2.0)
--- NOTE | 2022-02-16 09:59 | PC.NURSE ---
Patient to radiology
[2022-02-16 10:08] LABS: Magnesium 1.4 mg/dL (1.6-2.3)
[2022-02-16 10:08] LABS: INR 1.1; Prothrombin Time 13.4 Seconds (11.1-14.7)
[2022-02-16 10:15] LABS: Troponin I < 0.012 ng/mL (0.000-0.034)
[2022-02-16] MEDS: POTASSIUM CHLORIDE 20 MEQ PACKET (FOR LIQUID) 40 MEQ PO (10:23)
[2022-02-16] MEDS: POTASSIUM CHLORIDE INJ 40 MEQ in SODIUM CHLORIDE 0.9% IV 500 ML 130 MEQ IVPB (10:23)
[2022-02-16] MEDS: SODIUM CHLORIDE 0.9% IV 1,000 ML 100 ML (10:24)
--- NOTE | 2022-02-16 10:32 | PC.NURSE ---
Per ELECTRIC MOTOR WINDERS ASSEMBLER Ravin, okay to hang normal saline with potassium gtt
--- NOTE | 2022-02-16 13:47 | ADMGEN ---
This patient, Karthik Carrera, was admitted to Medical Room 347-. Patient/family oriented to hospital policies and general routines including ID bracelet, bed and alarms, visiting hours, pain management, procedures, bathroom and other care routines, personal items, smoking policy, room service/diet, and visiting hours. Information on how to activate the Rapid Response Team has been discussed. Patient/Family are encouraged to report perceived risks to care and to ask questions if they do not understand what they are told or what they should do.
[2022-02-16] MEDS: SODIUM CHLORIDE 0.9% IV 1,000 ML 125 ML IV CONT ×2 (14:20→20:17)
[2022-02-16] MEDS: ACETAMINOPHEN 325 MG TABLET 650 MG PO (18:02)
--- NOTE | 2022-02-16 21:07 | PC.NURSE ---
Pt running sinus ki on engine monitor. Pt flipped into consistent beats of Vtach. Armando HEAD [employer]IC [employer] notified. New orders put in (see orders). Pt back in sinus ki at this time.
[2022-02-16] MEDS: MAGNESIUM SULF 2 GM/WATER 50ML 2 GM/50 ML BAG IVPB (21:36)
[2022-02-16 22:15] LABS: Magnesium 1.4 mg/dL (1.6-2.3)
--- NOTE | 2022-02-16 23:26 | PM.IMHP ---
H&P: HPI History of Present Illness Date/Time: 02/16/22 23:26 Chief Complaint: Syncope Narrative: this is an 82-year-old male patient who has a history of hypertension and vertigo. The patient stated that he went to his mailbox today and he had a syncopal episode and fell by the mailbox and had lost consciousness for unknown amount of time. The patient then woke up and went back in the house without further incident. The patient stated that he gets dizzy with sudden movement and postural changes. He denied any chest pain or shortness of breath or any difficulty breathing. His H&H is slightly low at 12.6 and 34.6. His platelet count is 127. His potassium was 2.7 and is now 2.9. He was supplemented in the emergency room with potassium orally. Magnesium is low at 1.4. His toxicology screen was found to be negative. The patient had a run of SVT once he was on the floor. I ordered a magnesium 2 g bolus. The patient had been given potassium IV and oral in the emergency room and was started on IV fluids. The patient is being admitted to observation status on the date of service of 02/16/2022. Review of Systems Review of Systems: See HPI All systems reviewed & are unremarkable except as noted in HPI and below Constitutional: Constitutional: Reports as per HPI and Reports no additional constitutional complaints Eyes: Eyes: Reports as per HPI and Reports no additional eye complaints ENT: Reports system reviewed and no additional complaints, except as documented and Reports Normal hearing present Cardiovascular: Cardiovascular: Reports no additional cardiovascular complaints Respiratory: Respiratory: Reports no additional respiratory complaints and Reports no additional respiratory complaints Gastrointestinal: Gastrointestinal: Reports as per HPI and Reports no additional gastrointestinal complaints Musculoskeletal: Musculoskeletal: Reports no additional musculoskeletal complaints Integumentary/Breasts: Skin/Breast: Reports system reviewed and no additional complaints, except as docu and Reports as per HPI Neurologic: Reports system reviewed and no additional complaints, except as documented, Reports as per HPI and Reports Normal hearing present Psychiatric: Psychiatric: Reports no additional psychiatric complaints and Reports as per HPI Endocrine: Endocrine: Reports no additional endocrine complaints Hematologic/Lymphatic: Hematologic/Lymphatic: Reports no additional hematologic/lymphatic complaints Allergic/Immunologic: Allergic/Immunologic: Reports no additional allergic/immunologic complaints [facility] Past Medical History Medical History (Updated 02/16/22 @ 23:42 by Shelly Roberts NP) BPH associated with nocturia Dizziness and giddiness Essential (primary) hypertension Family history of cholecystectomy Hyperglycemia Hyperlipidemia, unspecified Hypertension Hypertension SOB (shortness of breath) Unsteady gait Surgical History Surgical History (Updated 02/16/22 @ 23:37 by Shelly Roberts NP) History of removal of pigmented skin lesion Family History Family History Mother Cerebrovascular accident Father Patient's father is Social History Social History (Updated 02/16/22 @ 23:38 by Shelly Roberts NP) Social History: the patient lives home alone and he is single. The patient did live with a significant other but she has . Patient has no children. The patient did work for [employer] and then a [employer] 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 The patient has no children. His brother is his durable power ip attorney for healthcare. Code status full code Smoking status: Never smoker Second hand tobacco smoke exposure: No Alcohol intake: never Substance use: never Spiritual care concerns: No Has the Lack of Transportation Kept You From Medical Appointments or From Getting Medications?: No Within the Pa
[2022-02-16 23:27] LABS: Anion Gap 5 mmol/L (8-16); Blood Urea Nitrogen 13 mg/dL (9-20); Calcium 7.4 mg/dL (8.4-10.2); Carbon Dioxide 28 mmol/L (22-30); Chloride 106 mmol/L (98-107); Estimated CRCL calculation 56 ml/min; Estimated Glomerular Filt Rate > 60; Glucose 103 mg/dL (65-110); Potassium 2.9 mmol/L (3.4-5.0); Sodium 139 mmol/L (137-145)
[2022-02-17] VITALS (12 sets, daily range): BP systolic 122–178; BP diastolic 53–78; PULSE 51–72; RESP 16–20; TEMP 36.3–37; O2SAT 98–99
[2022-02-17] MEDS: POTASSIUM CHLORIDE 20 MEQ PACKET (FOR LIQUID) 40 MEQ PO ×3 (00:16→14:17)
[2022-02-17] MEDS: KCL 20 MEQ/SW 100 ML 100 ML 50 MEQ IVPB (00:17)
[2022-02-17] MEDS: SODIUM CHLORIDE 0.9% IV 1,000 ML 125 ML IV CONT ×2 (05:45→20:25)
[2022-02-17 05:52] LABS: Basophils Percent Auto 0.8 % (0.2-1.2); Eosinophils Absolute Auto 0.1 K/mm3 (0-0.3); Eosinophils Percent Auto 1.7 % (0-4.4); Hemoglobin 11.4 g/dL (14.0-18.0); Immature Granulocyte Absolute 0.04 K/mm3 (0.00-0.031); Immature Granulocyte Percent A 0.8 % (0-0.5); Lymphocytes Absolute Auto 1.62 K/mm3 (0.9-3.2); Lymphocytes Percent Auto 34.4 % (18.3-44.2); Mean Corpuscular HGB Conc 35.6 g/dl (32-36); Mean Corpuscular Hemoglobin 30.8 pg (26-34); Mean Corpuscular Volume 86.5 fl (80-100); Mean Platelet Volume 9.5 fl (7.4-10.4); Monocytes Absolute Auto 0.6 K/mm3 (0.1-0.6); Monocytes Percent Auto 12.1 % (2.6-8.5); Neutrophils Absolute Auto 2.4 K/mm3 (1.3-6.7); Neutrophils Percent Auto 50.2 % (45.5-73.1); Platelet Count Result 128 k/mm3 (150-375); Red Cell Distribution Width 13.1 % (11.5-14.5); White Blood Count 4.7 K/mm3 (4.5-10.0)
[2022-02-17 06:00] LABS: Lactic Acid Reflex 0.9 mmol/L (0.7-2.0)
[2022-02-17 06:01] LABS: Alanine Aminotransferase 20 U/L (6-50); Albumin Level 3.4 g/dL (3.5-5.1); Alkaline Phosphatase 53 U/L (38-126); Anion Gap 11 mmol/L (8-16); Aspartate Amino Transferase 25 U/L (17-59); Bilirubin,Total 1.1 mg/dL (0.2-1.3); Blood Urea Nitrogen 11 mg/dL (9-20); Calcium 7.3 mg/dL (8.4-10.2); Carbon Dioxide 28 mmol/L (22-30); Chloride 105 mmol/L (98-107); Estimated CRCL calculation 56 ml/min; Estimated Glomerular Filt Rate > 60; Glucose 108 mg/dL (65-110); Magnesium 1.9 mg/dL (1.6-2.3); Potassium 3.2 mmol/L (3.4-5.0); Sodium 144 mmol/L (137-145)
[2022-02-17] MEDS: lisinopriL 20 MG TABLET 40 MG PO (08:58)
[2022-02-17] MEDS: atenoloL 25 MG TABLET PO (08:58)
--- NOTE | 2022-02-17 11:33 | PM.CNCAR ---
Assessment and Plan Assessment and plan (1) Syncope: Code(s): R55 - Syncope and collapse Status: Acute Assessment and Plan: Probably due to orthostatic syncope. Stop Spironolactone/HCTZ. (2) Low magnesium level: Code(s): R79.0 - Abnormal level of blood mineral Status: Acute Assessment and Plan: Due to diuretics.Replete Mag. (3) Hypokalemia: Code(s): E87.6 - Hypokalemia Status: Acute Assessment and Plan: Due to diuretics. Replete potassium. (4) Essential (primary) hypertension: Code(s): I10 - Essential (primary) hypertension Status: Acute Assessment and Plan: Stable. (5) Hyperlipidemia, unspecified: Code(s): E78.5 - Hyperlipidemia, unspecified Status: Acute Assessment and Plan: Advise to maintain a low saturated fat diet. (6) PSVT (paroxysmal supraventricular tachycardia): Code(s): I47.1 - Supraventricular tachycardia Status: Acute Assessment and Plan: On telemetry. On Atenolol. Will have him wear 30 day event monitor upon discharge. F/U with me in 1-2 weeks. (7) Edema of both legs: Code(s): R60.0 - Localized edema Status: Acute Assessment and Plan: Resolved. But if it returns he would be better with compression stockings. History of Present Illness History of Present Illness Consult date/time: 02/17/22 11:33 Reason For Visit: syncope Narrative: 81 yr old man who is my regular cardiology patient and a patient of Dr. Case presents to ER with syncope. He has a history of TUTU, hypertension, dyslipidemia. States he was walking ot his mailbox when he suddenly passed out and was out for a couple of minutes. He did not have any warning. Admits to dizziness when he does stand up at times. He drinks about 5 cups of water a day. Reports that since being back on Spironolactone/HCTZ and edema of legs resolved. Some edema does return by evening. He walks all day and can walk 4 blocks. Denies chest pain, palpitations. Cardiovascular Procedures Echo/MUGA:: 03/21/21 Echo: EF 60-65%, mild LVH, grade I diastolic dysfunction (E/e' 15). Electrophysiology:: 11/4/21 EKG: Sinus rhythm with first degree AV block, LVH with ST-T change, PRWP. Stress Tests:: 01/23/20 Lexiscan myoview: Normal. Review of Systems Review of Systems: All systems reviewed & are unremarkable except as noted in HPI and below Constitutional: Constitutional: Reports as per HPI, Denies chills and Denies fever(s) Cardiovascular: Cardiovascular: Reports as per HPI, Denies chest pain, Denies irregular heart rhythm, Reports leg edema and Reports lightheadedness Respiratory: Respiratory: Reports as per HPI and Reports dyspnea on exertion Gastrointestinal: Gastrointestinal: Reports as per HPI and Denies abdominal pain Genitourinary: Genitourinary: Denies dysuria Musculoskeletal: Musculoskeletal: Reports as per HPI Neurologic: Reports as per HPI, Reports dizziness and Reports syncope PMFSH Past Medical History Medical History (Updated 02/17/22 @ 11:40 by El Hoffman DO) BPH associated with nocturia Dizziness and giddiness Essential (primary) hypertension Family history of cholecystectomy Hyperglycemia Hyperlipidemia, unspecified Hypertension Hypertension SOB (shortness of breath) Unsteady gait Surgical History Surgical History (Updated 02/16/22 @ 23:37 by Shelly Roberts NP) History of removal of pigmented skin lesion Family History Family History Mother Cerebrovascular accident Father Patient's father is Social History Social History (Updated 02/16/22 @ 23:38 by Shelly Roberts NP) Social History: the patient lives home alone and he is single. The patient did live with a significant other but she has . Patient has no children. The patient did work for [employer] and then a [employer] 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
--- NOTE | 2022-02-17 12:16 | PC.NURSE ---
digital sales representative from Dr Hoffman's office here to place event monitor on pt he will wear for 30 days and follow up with office in 6 weeks
--- NOTE | 2022-02-17 12:17 | PM.IMPN ---
Progress Note: A&P Assessment and Plan (1) Syncope: Code(s): R55 - Syncope and collapse Status: Acute Assessment and Plan: -I did consult his network field engineer. Appreciate Cardiology input meds adjusted (2) Dizziness and giddiness: Code(s): R42 - Dizziness and giddiness Status: Acute Assessment and Plan: -will check orthostatic blood pressures. -patient's magnesium levels alone we did replace it. -The patient stated that he has a long history of dizziness. -am going to hold his water pill as his potassium and magnesium were both low. -the patient also had a run of SVT while he was In the nursing unit - I did consult his network field engineer. He is EKG shows sinus rhythm with first-degree AV block. Abnormal EKG poor R-wave progression. The patient had an echo on . Complete two-dimensional, color flow and Doppler transthoracic echocardiogram is performed. ? 2. Left ventricular chamber dimension is normal. ? 3. Ventricular septum is sigmoid shaped.? No LVOT obstruction. ? 4. Left ventricular systolic function is normal, estimated at 60-65%. ? 5. There is mildly increased left ventricular wall thickness. ? 6. The left ventricular diastolic function is grade I diastolic dysfunction. ? 7. E/e' 15 is elevated. ? 8. No pulmonary hypertension, estimated pulmonary arterial systolic pressure is 35 mmHg. check carotid -May be related to his atenolol (3) Hyperlipidemia, unspecified: Code(s): E78.5 - Hyperlipidemia, unspecified Status: Acute Assessment and Plan: - continue with current treatment. (4) Essential (primary) hypertension: Code(s): I10 - Essential (primary) hypertension Status: Acute Assessment and Plan: -Holding hydrochlorothiazide and spironolactone due to low potassium and magnesium. - patient is on atenolol it is heart rate is running in the 50s. Hold atenolol if his heart rate is listen 50. (5) BPH associated with nocturia: Code(s): N40.1 - Benign prostatic hyperplasia with lower urinary tract symptoms; R35.1 - Nocturia Status: Acute Assessment and Plan: Patient has been seen by his doctor but is not on any medication. (6) Anemia: Code(s): D64.9 - Anemia, unspecified Status: Acute Assessment and Plan: -His H&H is stable. Please continue to monitor. (7) Diastolic heart failure: Code(s): I50.30 - Unspecified diastolic (congestive) heart failure Status: Acute Assessment and Plan: - the patient had an echo a year ago. -The patient is on lisinopril. He had been on spironolactone and hydrochlorothiazide. I am holding these for now due to the electrolyte who believes (8) Hypokalemia: Code(s): E87.6 - Hypokalemia Status: Acute Assessment and Plan: Replace as necessary. (9) Low magnesium level: Code(s): R79.0 - Abnormal level of blood mineral Status: Acute Assessment and Plan: Replace as necessary Subjective Date/time seen: 02/17/22 12:17 feeling better. Exam Const: General: cooperative, healthy appearing, comfortable, no acute distress, well developed, alert, awake, Physically active, average body habitus and well nourished Nutritional Appearance: average body habitus and well nourished Orientation/consciousness: oriented to person, oriented to place, oriented to time and patient oriented x3 Limitations: no limitations HENMT: Head: normal to inspection, No palpable skull fracture present, normocephalic and atraumatic Ears: hearing grossly normal bilaterally and external ears normal Face/Nose/Sinus: Normal external nose present and Normal nares present Eyes: General: appearance normal, both eyes and all related structures Alignment and Position: alignment normal Periorbital: periorbital findings normal Eyelids: eyelids normal Sclera: sclerae normal Pupils: Equal, round and reactive pupils present EOM: EOMs intact b
[2022-02-17 19:25] LABS: Potassium 3.8 mmol/L (3.4-5.0)
[2022-02-18] VITALS: PULSE 64
[2022-02-18 04:00] VITALS: PULSE 47
[2022-02-18] MEDS: SODIUM CHLORIDE 0.9% IV 1,000 ML 125 ML IV CONT (04:33)
[2022-02-18 05:22] VITALS: BP 131/54; PULSE 62; RESP 18; TEMP 37.1; O2SAT 99
[2022-02-18 05:53] LABS: Basophils Percent Auto 0.7 % (0.2-1.2); Eosinophils Absolute Auto 0.1 K/mm3 (0-0.3); Hemoglobin 10.8 g/dL (14.0-18.0); Immature Granulocyte Absolute 0.03 K/mm3 (0.00-0.031); Immature Granulocyte Percent A 0.7 % (0-0.5); Lymphocytes Absolute Auto 1.55 K/mm3 (0.9-3.2); Lymphocytes Percent Auto 34.2 % (18.3-44.2); Mean Corpuscular HGB Conc 34.8 g/dl (32-36); Mean Corpuscular Hemoglobin 31.5 pg (26-34); Mean Corpuscular Volume 90.4 fl (80-100); Mean Platelet Volume 9.4 fl (7.4-10.4); Monocytes Absolute Auto 0.5 K/mm3 (0.1-0.6); Monocytes Percent Auto 10.4 % (2.6-8.5); Neutrophils Absolute Auto 2.4 K/mm3 (1.3-6.7); Platelet Count Result 103 k/mm3 (150-375); Red Blood Count 3.43 M/mm3 (4.6-6.20); Red Cell Distribution Width 13.3 % (11.5-14.5); White Blood Count 4.5 K/mm3 (4.5-10.0)
[2022-02-18 06:09] LABS: Anion Gap 9 mmol/L (8-16); Blood Urea Nitrogen 11 mg/dL (9-20); Calcium 7.4 mg/dL (8.4-10.2); Carbon Dioxide 27 mmol/L (22-30); Chloride 107 mmol/L (98-107); Estimated CRCL calculation 56 ml/min; Estimated Glomerular Filt Rate > 60; Glucose 105 mg/dL (65-110); Potassium 3.5 mmol/L (3.4-5.0); Sodium 143 mmol/L (137-145)
[2022-02-18 08:00] VITALS: BP 142/65
[2022-02-18 08:32] VITALS: PULSE 52
[2022-02-18] MEDS: atenoloL 25 MG TABLET PO (08:32)
[2022-02-18] MEDS: lisinopriL 20 MG TABLET 40 MG PO (08:33)
[2022-02-18] MEDS: POTASSIUM CHLORIDE 20 MEQ PACKET (FOR LIQUID) 40 MEQ PO (08:38)
--- NOTE | 2022-02-18 09:06 | PM.PNCARD ---
Progress Note: A&P Assessment and Plan (1) Syncope: Code(s): R55 - Syncope and collapse Status: Acute Assessment and Plan: Probably due to orthostatic syncope. Stopped Spironolactone/HCTZ. Repleted mag and potassium. (2) Essential (primary) hypertension: Code(s): I10 - Essential (primary) hypertension Status: Acute Assessment and Plan: Stable. (3) Hyperlipidemia, unspecified: Code(s): E78.5 - Hyperlipidemia, unspecified Status: Acute Assessment and Plan: Advise to maintain a low saturated fat diet. (4) PSVT (paroxysmal supraventricular tachycardia): Code(s): I47.1 - Supraventricular tachycardia Status: Acute Assessment and Plan: On telemetry. On Atenolol. He has 30 day event monitor on now. F/U with me in 1-2 weeks. (5) Edema of both legs: Code(s): R60.0 - Localized edema Status: Acute Assessment and Plan: Obtain compression stockings 30 mmHg knee highs to be worn during the day. Subjective Date/time seen: 02/18/22 09:06 Interval history: No longer having dizziness this morning. Yesterday did have some when standing up. No chest pain or sob. Exam Const: General: cooperative, healthy appearing and comfortable Resp: Auscultation: clear to auscultation bilaterally, no crackles, no rales, no rhonchi and no wheezes Cardio: Jugular venous distension: no JVD Rate: regular rate Rhythm: regular rhythm Heart sounds: no murmurs Peripheral pulses: dorsalis pedis present GI: GI Palp: No abdominal tenderness and Yes Soft to palpation Neuro: General: oriented to person, oriented to place and oriented to time Extrem: Right lower extremity: no edema Left lower extremity: no edema Objective Data Vital Signs Vital Signs: Vital Signs - 24 hr 02/17/22 12:00 02/17/22 14:47 02/17/22 14:00 Temperature 98.6 F Pulse Rate 55 L 52 L Respiratory Rate 20 Blood Pressure 151/53 H Pulse Oximetry 99 Oxygen Delivery Room Air 02/17/22 16:00 02/17/22 20:16 02/17/22 20:00 Temperature 98.4 F Pulse Rate 60 54 L Respiratory Rate 20 Blood Pressure 150/59 H 122/67 Pulse Oximetry 98 Oxygen Delivery 02/17/22 22:25 02/18/22 05:22 02/17/22 20:00 Temperature 98.7 F Pulse Rate 62 51 L Respiratory Rate 18 Blood Pressure 125/61 131/54 L Pulse Oximetry 99 Oxygen Delivery 02/18/22 00:00 02/18/22 04:00 02/18/22 08:32 Temperature Pulse Rate 64 47 L 52 L Respiratory Rate Blood Pressure Pulse Oximetry Oxygen Delivery Intake/Output Intake/Output: Intake & Output 02/15/22 02/16/22 02/17/22 02/18/22 23:59 23:59 23:59 23:59 Intake Total 2170 2820 1000 Output Total 2075 200 Balance 2170 745 800 Meds/Results Medications: Active Medications Generic Name Dose Route Start Last Admin Trade Name Freq PRN Reason Stop Dose Admin Acetaminophen 650 mg 02/16/22 17:51 02/16/22 18:02 Acetaminophen 325 Mg Tablet PO 650 mg Q4H PRN Administration Mild Pain (1-3) or Fever Atenolol 25 mg 02/17/22 09:00 02/18/22 08:32 Atenolol 25 Mg Tablet PO 25 mg DAILY BRANDY Administration Sodium Chloride 1,000 mls @ 125 mls/hr 02/16/22 12:35 02/18/22 04:33 Normal Saline Iv IV CONT 125 mls/hr .Q8H BRANDY Administration Lisinopril 40 mg 02/17/22 09:00 02/18/22 08:33 Lisinopril 20 Mg Tablet PO 40 mg DAILY BRANDY Administration Potassium Chloride 40 meq 02/16/22 23:35 02/18/22 08:38 Potassium Chloride 20 Meq Packet (For Liquid) PO 40 meq DAILY BRANDY Administration Radiology Results: ITS Impressions Head CT 02/16/22 10:09 IMPRESSION: 1. No acute intracranial abnormality. 2. Age related findings. 3. Chronic right maxillary sinusitis. Chest X-Ray 02/16/22 10:18 IMPRESSION: 1. No acute cardiopulmonary abnormality. Wrist X-Ray 02/16/22 18:31 IMPRESSION: 1. Mild polyarticular osteoarthritis. 2. Curvilinear den
[2022-02-18 09:52] VITALS: BP 146/64; BP 146/72
--- NOTE | 2022-02-18 10:44 | PM.DS ---
DS: Admitting Diagnosis Discharge Date February 18, 2022 Admitting Diagnosis syncope DS: Discharge Diagnosis Discharge Diagnosis (1) Syncope: Code(s): R55 - Syncope and collapse Status: Acute Assessment and Plan: -I did consult his specimen processor. Appreciate Cardiology input meds adjusted (2) Dizziness and giddiness: Code(s): R42 - Dizziness and giddiness Status: Acute Assessment and Plan: -will check orthostatic blood pressures. -patient's magnesium levels alone we did replace it. -The patient stated that he has a long history of dizziness. -am going to hold his water pill as his potassium and magnesium were both low. -the patient also had a run of SVT while he was In the nursing unit - I did consult his specimen processor. He is EKG shows sinus rhythm with first-degree AV block. Abnormal EKG poor R-wave progression. The patient had an echo on . Complete two-dimensional, color flow and Doppler transthoracic echocardiogram is performed. ? 2. Left ventricular chamber dimension is normal. ? 3. Ventricular septum is sigmoid shaped.? No LVOT obstruction. ? 4. Left ventricular systolic function is normal, estimated at 60-65%. ? 5. There is mildly increased left ventricular wall thickness. ? 6. The left ventricular diastolic function is grade I diastolic dysfunction. ? 7. E/e' 15 is elevated. ? 8. No pulmonary hypertension, estimated pulmonary arterial systolic pressure is 35 mmHg. check carotid -May be related to his atenolol (3) Hyperlipidemia, unspecified: Code(s): E78.5 - Hyperlipidemia, unspecified Status: Acute Assessment and Plan: - continue with current treatment. (4) Essential (primary) hypertension: Code(s): I10 - Essential (primary) hypertension Status: Acute Assessment and Plan: -Holding hydrochlorothiazide and spironolactone due to low potassium and magnesium. - patient is on atenolol it is heart rate is running in the 50s. Hold atenolol if his heart rate is listen 50. (5) BPH associated with nocturia: Code(s): N40.1 - Benign prostatic hyperplasia with lower urinary tract symptoms; R35.1 - Nocturia Status: Acute Assessment and Plan: Patient has been seen by his doctor but is not on any medication. (6) Anemia: Code(s): D64.9 - Anemia, unspecified Status: Acute Assessment and Plan: -His H&H is stable. Please continue to monitor. (7) Diastolic heart failure: Code(s): I50.30 - Unspecified diastolic (congestive) heart failure Status: Acute Assessment and Plan: - the patient had an echo a year ago. -The patient is on lisinopril. He had been on spironolactone and hydrochlorothiazide. I am holding these for now due to the electrolyte who believes (8) Hypokalemia: Code(s): E87.6 - Hypokalemia Status: Acute Assessment and Plan: Replace as necessary. (9) Low magnesium level: Code(s): R79.0 - Abnormal level of blood mineral Status: Acute Assessment and Plan: Replace as necessary DS: Summary Hospital Course Hospital Course: patient is an 82-year-old gentleman came in for near syncopal episode. Cardiology was consulted and felt this is likely related to orthostatic hypotension. His diuretics were held electrolytes were replaced. He is going to be sent home on a Holter monitor and can follow up with Cardiology. Currently is asymptomatic. Time Spent with Patient Time attestation: Total time spent providing and/or coordinating discharge services: Exam Const: General: cooperative, healthy appearing, comfortable, no acute distress, well developed, alert, awake, Physically active, average body habitus and well nourished Nutritional Appearance: average body habitus and well nourished Orientation/consciousness: oriented to person, oriented to place, oriented to time and patient oriented x3 Limitations: no limitatio
--- NOTE | 2022-02-18 13:10 | PCPTNOTE ---
Attempted to do physical therapy evaluation, but patient's nurse, Yolanda, reports he has his discharge order in and is just waiting for a ride.
[2022-02-21 04:15] LABS: Thyroid Peroxidase Antibodies <1 IU/mL (<9)
[2022-02-22 14:24] LABS: Thyroid Stimulating Immunoglob <89 % baseline (<140)
== END 2022-02-18 13:56 | disposition home or self-care (01) | DRG 312 ==
LOC: ANHED 12:34 → ANH3MED 13:09
PROVIDERS: Emergency Medicine; Nurse Practitioner; Admitting Provider Internal Medicine; Emergency Provider Nurse Practitioner Family; PCP Internal Medicine; Visit Provider Chiropractor
DX: I95.1 Orthostatic hypotension (principal); I47.1 Supraventricular tachycardia; I50.30 Unspecified diastolic (congestive) heart failure; R42 Dizziness and giddiness; T44.7X5A Adverse effect of beta-adrenoreceptor antagonists, initial encounter; E78.5 Hyperlipidemia, unspecified; N40.1 Benign prostatic hyperplasia with lower urinary tract symptoms; R35.1 Nocturia; D64.9 Anemia, unspecified; E87.6 Hypokalemia; T50.2X5A Adverse effect of carbonic-anhydrase inhibitors, benzothiadiazides and other diuretics, initial encounter; E83.42 Hypomagnesemia; I10 Essential (primary) hypertension; R60.0 Localized edema; G47.33 Obstructive sleep apnea (adult) (pediatric)
CPT/HCPCS: 36415; 70450; 71046; 73100; 80048; 80053; 81003; 83605; 83735; 84132; 84443; 84445; 84484; 85025; 85610; 85730; 86376; 93005; 93880; 96361; 96365; 96366; 96367; 97165; 99285; A9270; G0378; J3475; J3480; J7030; J7040

== ENCOUNTER 2022-03-15 16:51 | Outpatient (CLI) | payer MEDICARE, SELFPAY ==
[2022-03-15 17:18] LABS: Basophils Absolute Auto 0.1 K/mm3 (0.0-0.1); Basophils Percent Auto 0.8 % (0.2-1.2); Eosinophils Absolute Auto 0.1 K/mm3 (0-0.3); Eosinophils Percent Auto 1.5 % (0-4.4); Hematocrit 40.3 % (42.0-52.0); Hemoglobin 14.6 g/dL (14.0-18.0); Immature Granulocyte Absolute 0.02 K/mm3 (0.00-0.031); Immature Granulocyte Percent A 0.3 % (0-0.5); Lymphocytes Absolute Auto 1.97 K/mm3 (0.9-3.2); Lymphocytes Percent Auto 32.5 % (18.3-44.2); Mean Corpuscular HGB Conc 36.2 g/dl (32-36); Mean Corpuscular Hemoglobin 30.9 pg (26-34); Mean Corpuscular Volume 85.4 fl (80-100); Mean Platelet Volume 9.4 fl (7.4-10.4); Monocytes Absolute Auto 0.5 K/mm3 (0.1-0.6); Monocytes Percent Auto 8.9 % (2.6-8.5); Neutrophils Absolute Auto 3.4 K/mm3 (1.3-6.7); Platelet Count Result 157 k/mm3 (150-375); Red Blood Count 4.72 M/mm3 (4.6-6.20); Red Cell Distribution Width 12.2 % (11.5-14.5); White Blood Count 6.1 K/mm3 (4.5-10.0)
[2022-03-15 17:31] LABS: Alanine Aminotransferase 27 U/L (6-50); Albumin Level 4.7 g/dL (3.5-5.1); Alkaline Phosphatase 82 U/L (38-126); Anion Gap 8 mmol/L (8-16); Aspartate Amino Transferase 31 U/L (17-59); Bilirubin,Total 1.1 mg/dL (0.2-1.3); Blood Urea Nitrogen 16 mg/dL (9-20); Carbon Dioxide 27 mmol/L (22-30); Chloride 102 mmol/L (98-107); Estimated Glomerular Filt Rate > 60; Glucose 124 mg/dL (65-110); Magnesium 1.6 mg/dL (1.6-2.3); Potassium 4.1 mmol/L (3.4-5.0); Sodium 137 mmol/L (137-145)
[2022-03-15 17:41] LABS: Iron 106 ug/dL (49-181)
[2022-03-15 17:50] LABS: Percent Iron Saturation 29 % (20-50)
[2022-03-15 18:35] LABS: Folic Acid 9.1 ng/mL (2.76->20)
== END 2022-03-15 16:52 | disposition home or self-care (01) ==
PROVIDERS: PCP Internal Medicine; Visit Provider Internal Medicine
DX: E87.6 Hypokalemia (principal); R79.0 Abnormal level of blood mineral; D64.9 Anemia, unspecified; R53.83 Other fatigue
CPT/HCPCS: 36415; 80053; 82607; 82746; 83540; 83550; 83735; 85025

== ENCOUNTER 2022-06-18 09:21 | Emergency (ER) | payer MEDICARE, SELFPAY ==
--- NOTE | ~2022-06-18 | XR_ITS ---
EXAMINATION: XR chest 1V portable 06/18/2022 10:24 INDICATION: Shortness of breath. Covid positive. Hemoptysis. PROCEDURE: AP portable chest COMPARISON: Comparison to multiple prior studies sequentially, with oldest reviewed study dated 03/01. FINDINGS: The lungs are clear. The cardiomediastinal silhouette is within normal limits. There are no pleural effusions. There is no pneumothorax suspected. IMPRESSION: 1: NO ACUTE CARDIOPULMONARY DISEASE. Reviewed, dictated and finalized at location A. STANT TO THE DIRECTOR
--- NOTE | 2022-06-18 09:28 | ECG_ITS ---
Measurements Intervals [place] Rate: 77 P: 9 UT: 220 QRS: -10 QRSD: 154 T: 115 QT: 435 QTc: 493 Interpretive Statements SINUS RHYTHM WITH 1ST DEGREE AV BLOCK BASELINE ARTIFACT LEFT BUNDLE BRANCH BLOCK ABNORMAL ECG COMPARED TO ECG 02/16/2022 08:27:36 LEFT BUNDLE-BRANCH BLOCK NOW PRESENT Electronically Signed On 06-18-2022 14:53:46 SUPERVISOR PAINT by Fam Vital M.D.
[2022-06-18 09:32] VITALS: BP 135/66; PULSE 81; RESP 15; TEMP 36.7; O2SAT 96
[2022-06-18 09:49] LABS: Basophils Percent Auto 0.4 % (0.2-1.2); Eosinophils Absolute Auto 0.1 K/mm3 (0-0.3); Eosinophils Percent Auto 2.6 % (0-4.4); Hematocrit 39.8 % (42.0-52.0); Hemoglobin 14.2 g/dL (14.0-18.0); Immature Granulocyte Absolute 0.02 K/mm3 (0.00-0.031); Immature Granulocyte Percent A 0.4 % (0-0.5); Lymphocytes Absolute Auto 2.04 K/mm3 (0.9-3.2); Lymphocytes Percent Auto 40.7 % (18.3-44.2); Mean Corpuscular HGB Conc 35.7 g/dl (32-36); Mean Corpuscular Hemoglobin 32.3 pg (26-34); Mean Corpuscular Volume 90.5 fl (80-100); Mean Platelet Volume 9.8 fl (7.4-10.4); Monocytes Absolute Auto 0.6 K/mm3 (0.1-0.6); Monocytes Percent Auto 11.2 % (2.6-8.5); Neutrophils Absolute Auto 2.2 K/mm3 (1.3-6.7); Neutrophils Percent Auto 44.7 % (45.5-73.1); Platelet Count Result 142 k/mm3 (150-375); Red Cell Distribution Width 12.2 % (11.5-14.5)
[2022-06-18 10:00] LABS: Alanine Aminotransferase 41 U/L (6-50); Albumin Level 4.4 g/dL (3.5-5.1); Alkaline Phosphatase 74 U/L (38-126); Anion Gap 6 mmol/L (8-16); Aspartate Amino Transferase 29 U/L (17-59); Bilirubin,Total 0.5 mg/dL (0.2-1.3); Blood Urea Nitrogen 33 mg/dL (9-20); Calcium 8.4 mg/dL (8.4-10.2); Carbon Dioxide 22 mmol/L (22-30); Chloride 107 mmol/L (98-107); Estimated CRCL calculation 40 ml/min; Estimated Glomerular Filt Rate 53; Glucose 109 mg/dL (65-110); Potassium 4.9 mmol/L (3.4-5.0); Sodium 135 mmol/L (137-145)
[2022-06-18 10:55] VITALS: BP 137/72; PULSE 86; RESP 17; O2SAT 97
[2022-06-18] MEDS: SODIUM CHLORIDE 0.9% IV 1,000 ML 999 ML IV CONT (10:56)
--- NOTE | 2022-06-18 11:00 | ED.SOB ---
HPI - SOB/Dyspnea General Chief Complaint: Shortness of Breath/Dyspnea Stated Complaint: COVID+, not feeling well Time Seen by Provider: 06/18/22 09:48 History of Present Illness HPI Narrative: Patient is an 82-year-old male who presents ER with complaints of chest congestion. Was diagnosed with COVID 6 days ago. Took a 5-day pack of Paxlovid. Still feels fatigue and has cough. Has a history of hypokalemia and is concerned that may causing some weakness and fatigue. No longer having fevers or chills. No chest pain. Related Data Home Medications Medication Instructions Recorded Confirmed multivitamin (Multiple Vitamins 1 tablet PO DAILY 07/09/19 06/09/22 tablet) Allergies Allergy/AdvReac Type Severity Reaction Status Date / Time chocolate flavor Allergy Severe throat Verified 06/09/22 15:11 swell amoxicillin [From Augmentin] Allergy Intermediate Rash Verified 06/09/22 15:11 clavulanic acid Allergy Intermediate Rash Verified 06/09/22 15:11 [From Augmentin] Review of Systems Review of Systems: All systems reviewed & are unremarkable except as noted in HPI and below Constitutional: Constitutional: Denies chills, Reports fatigue and Denies fever(s) ENT: Denies nasal congestion and Denies sore throat Cardiovascular: Cardiovascular: Denies chest pain, Denies rapid heart rate and Denies radiating jaw, neck or arm pain Respiratory: Respiratory: Reports chest congestion, Reports cough and Denies dyspnea Gastrointestinal: Gastrointestinal: Denies abdominal pain, Denies nausea and Denies vomiting PMFSH Past Medical History Medical History BPH associated with nocturia Dizziness and giddiness Essential (primary) hypertension Family history of cholecystectomy Hyperglycemia Hyperlipidemia, unspecified Hypertension Hypertension Other hyperlipidemia SOB (shortness of breath) Unsteady gait Surgical History Surgical History History of removal of pigmented skin lesion Family History Family History Mother Cerebrovascular accident Father Patient's father is Social History Social History Social History: the patient lives home alone and he is single. The patient did live with a significant other but she has . Patient has no children. 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 The patient has no children. His brother is his durable power bankruptcy attorney for healthcare. Code status full code Smoking status: Never smoker Second hand tobacco smoke exposure: No Alcohol intake: never Substance use: never Lack of Transportation: No Lack of Food: Never True Current Housing: I Do Not Have Housing Concerned About Future Housing: No Difficulty Paying Gas/Electric Bills: No Difficulty Paying for Meds: No Currently Unemployed: No Education: Associate Degree Difficulty w/ Childcare or Family Care: No Spiritual care concerns: No Exam Narrative: GENERAL: Well-appearing, well-nourished, and in no acute distress. HEAD: Normocephalic, atraumatic. CHEST: Clear to auscultation. No respiratory distress. HEART: Regular rate and rhythm. Normal peripheral pulses. ABDOMEN: Soft, nontender, nondistended. EXTREMITIES: Normal range of motion. No edema. SKIN: Warm, dry, no rash. NEURO: Alert and oriented x3. PSYCH: Normal mood and affect. Course Course Emergency Course: Lab work with likely some dehydration given BUN of 33 and creatinine 1.3. Electrolytes normal. No elevation white blood cell count and no anemia. Chest x-ray without infiltrate. Patient received IV fluid. Discharge home with reassurance. Vital Signs Vital signs: Vital Signs Temperature 98.0 F 06/18/22 09:32 P
[2022-06-18 12:10] VITALS: BP 123/88; PULSE 84; RESP 17; O2SAT 99
== END 2022-06-18 12:13 | disposition home or self-care (01) ==
PROVIDERS: Emergency Provider Emergency Medicine; PCP Internal Medicine
DX: U07.1 COVID-19 (principal); E86.0 Dehydration; I10 Essential (primary) hypertension; E78.49 Other hyperlipidemia; N40.1 Benign prostatic hyperplasia with lower urinary tract symptoms; R35.1 Nocturia; I44.0 Atrioventricular block, first degree; I44.7 Left bundle-branch block, unspecified
CPT/HCPCS: 36415; 71045; 80053; 85025; 93005; 96360; 99284; J7030

== ENCOUNTER 2022-09-05 07:25 | Outpatient (CLI) | payer MEDICARE, SELFPAY ==
[2022-09-05 07:55] LABS: Alanine Aminotransferase 25 U/L (6-50); Albumin Level 4.4 g/dL (3.5-5.1); Alkaline Phosphatase 63 U/L (38-126); Anion Gap 6 mmol/L (8-16); Aspartate Amino Transferase 28 U/L (17-59); Blood Urea Nitrogen 19 mg/dL (9-20); Calcium 8.5 mg/dL (8.4-10.2); Carbon Dioxide 27 mmol/L (22-30); Chloride 106 mmol/L (98-107); Cholesterol 138 mg/dL (0-200); Estimated Glomerular Filt Rate > 60; Glucose 111 mg/dL (65-110); HDL Direct 35 mg/dL; Magnesium 1.8 mg/dL (1.6-2.3); Potassium 3.9 mmol/L (3.4-5.0); Sodium 139 mmol/L (137-145); Triglycerides 159 mg/dL (<150)
[2022-09-05 08:02] LABS: Basophils Percent Auto 0.6 % (0.2-1.2); Eosinophils Absolute Auto 0.1 K/mm3 (0-0.3); Eosinophils Percent Auto 2.7 % (0-4.4); Hemoglobin 13.9 g/dL (14.0-18.0); Immature Granulocyte Absolute 0.02 K/mm3 (0.00-0.031); Immature Granulocyte Percent A 0.4 % (0-0.5); Lymphocytes Percent Auto 46.2 % (18.3-44.2); Mean Corpuscular HGB Conc 34.8 g/dl (32-36); Mean Corpuscular Hemoglobin 31.4 pg (26-34); Mean Corpuscular Volume 90.5 fl (80-100); Mean Platelet Volume 9.8 fl (7.4-10.4); Monocytes Absolute Auto 0.6 K/mm3 (0.1-0.6); Monocytes Percent Auto 11.3 % (2.6-8.5); Neutrophils Percent Auto 38.8 % (45.5-73.1); Platelet Count Result 145 k/mm3 (150-375); Red Blood Count 4.42 M/mm3 (4.6-6.20); Red Cell Distribution Width 12.5 % (11.5-14.5); White Blood Count 5.2 K/mm3 (4.5-10.0)
[2022-09-05 08:06] LABS: LDL Cholesterol Direct 81 mg/dL
[2022-09-05 08:21] LABS: Vitamin D 25 Hydroxy 56.3 ng/mL
[2022-09-05 08:59] LABS: Folic Acid 12.6 ng/mL (2.76->20)
== END 2022-09-05 07:26 | disposition home or self-care (01) ==
PROVIDERS: PCP Internal Medicine; Visit Provider Internal Medicine
DX: E55.9 Vitamin D deficiency, unspecified (principal); I10 Essential (primary) hypertension; R79.0 Abnormal level of blood mineral; E87.6 Hypokalemia; R53.83 Other fatigue; E66.3 Overweight; E78.49 Other hyperlipidemia
CPT/HCPCS: 36415; 80053; 80061; 82306; 82607; 82746; 83735; 84443; 85025

== ENCOUNTER 2022-10-23 16:26 | Outpatient (CLI) | payer MEDICARE, SELFPAY ==
[2022-10-23 18:16] LABS: Alanine Aminotransferase 26 U/L (6-50); Aspartate Amino Transferase 37 U/L (17-59)
== END 2022-10-23 16:27 | disposition home or self-care (01) ==
PROVIDERS: PCP Internal Medicine; Visit Provider Podiatrist Foot & Ankle Surgery
DX: B35.1 Tinea unguium (principal)
CPT/HCPCS: 36415; 84450; 84460

== ENCOUNTER 2023-01-08 07:15 | Outpatient (CLI) | payer MEDICARE, SELFPAY ==
[2023-01-08 08:32] LABS: Basophils Percent Auto 0.5 % (0.2-1.2); Eosinophils Absolute Auto 0.1 K/mm3 (0-0.3); Eosinophils Percent Auto 1.4 % (0-4.4); Hematocrit 41.2 % (42.0-52.0); Hemoglobin 14.2 g/dL (14.0-18.0); Immature Granulocyte Absolute 0.02 K/mm3 (0.00-0.031); Immature Granulocyte Percent A 0.4 % (0-0.5); Lymphocytes Absolute Auto 2.51 K/mm3 (0.9-3.2); Mean Corpuscular HGB Conc 34.5 g/dl (32-36); Mean Corpuscular Hemoglobin 31.9 pg (26-34); Mean Corpuscular Volume 92.6 fl (80-100); Mean Platelet Volume 9.8 fl (7.4-10.4); Monocytes Absolute Auto 0.6 K/mm3 (0.1-0.6); Monocytes Percent Auto 9.9 % (2.6-8.5); Neutrophils Absolute Auto 2.4 K/mm3 (1.3-6.7); Neutrophils Percent Auto 42.8 % (45.5-73.1); Platelet Count Result 131 k/mm3 (150-375); Red Blood Count 4.45 M/mm3 (4.6-6.20); Red Cell Distribution Width 12.9 % (11.5-14.5); White Blood Count 5.6 K/mm3 (4.5-10.0)
[2023-01-08 08:48] LABS: Alanine Aminotransferase 28 U/L (6-50); Albumin Level 4.4 g/dL (3.5-5.1); Alkaline Phosphatase 61 U/L (38-126); Anion Gap 7 mmol/L (8-16); Aspartate Amino Transferase 27 U/L (17-59); Bilirubin,Total 0.9 mg/dL (0.2-1.3); Blood Urea Nitrogen 30 mg/dL (9-20); Calcium 8.7 mg/dL (8.4-10.2); Carbon Dioxide 29 mmol/L (22-30); Chloride 103 mmol/L (98-107); Estimated Glomerular Filt Rate 58; Glucose 119 mg/dL (65-110); Potassium 4.5 mmol/L (3.4-5.0); Sodium 139 mmol/L (137-145)
[2023-01-08 09:15] LABS: Prostate Specific Antigen 0.7 ng/mL (< OR = 4.0)
[2023-01-08 09:22] LABS: Vitamin D 25 Hydroxy 46.5 ng/mL
== END 2023-01-08 07:16 | disposition home or self-care (01) ==
LOC: ANHLAB 07:17
PROVIDERS: PCP Internal Medicine; Visit Provider Internal Medicine
DX: E55.9 Vitamin D deficiency, unspecified (principal); E78.49 Other hyperlipidemia; I10 Essential (primary) hypertension; R79.0 Abnormal level of blood mineral; R53.83 Other fatigue; Z12.5 Encounter for screening for malignant neoplasm of prostate
CPT/HCPCS: 36415; 80053; 82306; 83735; 84153; 84443; 85025; G0103

== ENCOUNTER 2023-07-02 08:38 | Outpatient (CLI) | payer MEDICARE, SELFPAY ==
[2023-07-02 09:12] LABS: Basophils Percent Auto 0.8 % (0.2-1.2); Eosinophils Absolute Auto 0.1 K/mm3 (0-0.3); Eosinophils Percent Auto 2.5 % (0-4.4); Hematocrit 43.1 % (42.0-52.0); Hemoglobin 14.2 g/dL (14.0-18.0); Immature Granulocyte Absolute 0.03 K/mm3 (0.00-0.031); Immature Granulocyte Percent A 0.6 % (0-0.5); Lymphocytes Absolute Auto 2.37 K/mm3 (0.9-3.2); Lymphocytes Percent Auto 45.3 % (18.3-44.2); Mean Corpuscular HGB Conc 32.9 g/dl (32-36); Mean Corpuscular Hemoglobin 30.7 pg (26-34); Mean Corpuscular Volume 93.3 fl (80-100); Mean Platelet Volume 9.7 fl (7.4-10.4); Monocytes Absolute Auto 0.6 K/mm3 (0.1-0.6); Monocytes Percent Auto 11.1 % (2.6-8.5); Neutrophils Absolute Auto 2.1 K/mm3 (1.3-6.7); Neutrophils Percent Auto 39.7 % (45.5-73.1); Platelet Count Result 141 k/mm3 (150-375); Red Blood Count 4.62 M/mm3 (4.6-6.20); Red Cell Distribution Width 13.2 % (11.5-14.5); White Blood Count 5.2 K/mm3 (4.5-10.0)
[2023-07-02 09:26] LABS: Alanine Aminotransferase 22 U/L (6-50); Albumin Level 4.2 g/dL (3.5-5.1); Alkaline Phosphatase 69 U/L (38-126); Anion Gap 6 mmol/L (8-16); Aspartate Amino Transferase 25 U/L (17-59); Blood Urea Nitrogen 19 mg/dL (9-20); Calcium 8.9 mg/dL (8.4-10.2); Carbon Dioxide 29 mmol/L (22-30); Chloride 103 mmol/L (98-107); Estimated Glomerular Filt Rate > 60; Glucose 114 mg/dL (65-110); Potassium 4.3 mmol/L (3.4-5.0); Sodium 138 mmol/L (137-145)
[2023-07-02 09:40] LABS: Iron 130 ug/dL (49-181)
[2023-07-02 09:52] LABS: Percent Iron Saturation 42 % (20-50)
[2023-07-02 10:54] LABS: Vitamin D 25 Hydroxy 39.9 ng/mL
[2023-07-05 13:24] LABS: Red Blood Cell Folate 532 ng/mL RBC (>280)
== END 2023-07-02 08:39 | disposition home or self-care (01) ==
LOC: ANHLAB 08:43
PROVIDERS: PCP Internal Medicine; Visit Provider Internal Medicine
DX: E55.9 Vitamin D deficiency, unspecified (principal); I50.30 Unspecified diastolic (congestive) heart failure; E78.49 Other hyperlipidemia; D64.9 Anemia, unspecified; I10 Essential (primary) hypertension; R53.83 Other fatigue; R79.0 Abnormal level of blood mineral
CPT/HCPCS: 36415; 80053; 82306; 82607; 82728; 82747; 83540; 83550; 84443; 85025

== ENCOUNTER 2024-01-24 15:11 | Outpatient (CLI) | payer MEDICARE, SELFPAY ==
[2024-01-24 16:00] LABS: Alanine Aminotransferase 26 U/L (6-50); Albumin Level 4.4 g/dL (3.5-5.1); Alkaline Phosphatase 71 U/L (38-126); Anion Gap 9 mmol/L (4-12); Aspartate Amino Transferase 30 U/L (17-59); Bilirubin,Total 0.7 mg/dL (0.2-1.3); Blood Urea Nitrogen 17 mg/dL (9-20); Calcium 8.9 mg/dL (8.4-10.2); Carbon Dioxide 25 mmol/L (22-30); Chloride 104 mmol/L (98-107); Estimated Glomerular Filt Rate > 60; Glucose 124 mg/dL (65-110); Potassium 3.8 mmol/L (3.4-5.0); Sodium 138 mmol/L (137-145)
[2024-01-24 16:31] LABS: Thyroid Stimulating Hormone 0.729 uIU/mL (0.465-4.680)
[2024-01-24 17:17] LABS: Free T4 Free Thyroxine 1.52 ng/mL (0.78-2.19)
== END 2024-01-24 15:12 | disposition home or self-care (01) ==
LOC: ANHLAB 15:16
PROVIDERS: PCP Nurse Practitioner; Visit Provider Nurse Practitioner
DX: I10 Essential (primary) hypertension (principal); Z79.899 Other long term (current) drug therapy
CPT/HCPCS: 36415; 80053; 84439; 84443

== ENCOUNTER 2024-04-30 23:09 | Emergency (ER) | payer MEDICARE, SELFPAY ==
--- NOTE | ~2024-04-30 | CT_ITS ---
Non-contrast Head CT History: Vertigo COMPARISON: 02/16/2022 Technique: Axial non-contrast imaging of the brain was performed. Dose reduction technique was used on this scan by utilizing automated exposure control and iterative reconstruction technique. The dose -length product (DLP) was 681.00 mGy-cm. Findings: There is no evidence of intracranial hemorrhage, mass lesion, or acute infarct. Brain par enchyma appears normal. The ventricles and subarachnoid spaces are normal in size. The calvarium ap pears normal. The visualized paranasal sinuses and mastoid air cells are clear. Impression: No significant abnormality seen. Reviewed, dictated and finalized at location . CH SERVICE SPECIALIST Impression: No significant abnormality seen.
--- NOTE | ~2024-04-30 | XR_ITS ---
Clinical Indication: Chest pain AP and lateral views of the chest: Comparison: 06/18/2022 Findings: The lungs are clear, without evidence of focal consolidation or pleural effusion. Cardiome diastinal silhouette is within normal limits. Bones and soft tissues are unremarkable. Impression: Normal chest. Reviewed, dictated and finalized at [facility]. HT CREW TIME CLERK Impression: Normal chest.
--- NOTE | 2024-04-30 23:25 | ECG_ITS ---
Test Date: 2024-04-30 23:40:37 Measurements Intervals [place] Rate: 71 P: 15 [place]: 206 QRS: -16 QRSD: 156 T: 107 QT: 496 QTc: 540 Interpretive Statements SINUS RHYTHM LEFT BUNDLE BRANCH BLOCK [120+ ms QRS DURATION, 80+ ms Q/S IN V1/V2, 85+ ms R IN I/aVL/V5/V6] No previous ECG available for comparison Electronically Signed On 05-05-2024 10:27:49 GOLF COURSE EQUIPMENT OPERATOR by Henry Springer M.D.
[2024-04-30 23:49] VITALS: PULSE 76
[2024-05-01] VITALS (29 sets, daily range): BP systolic 91–132; BP diastolic 53–79; PULSE 51–72; RESP 11–23; O2SAT 88–99
[2024-05-01 00:04] LABS: Basophils Percent Auto 0.5 % (0.2-1.2); Eosinophils Absolute Auto 0.1 K/mm3 (0-0.3); Eosinophils Percent Auto 1.7 % (0-4.4); Hematocrit 38.4 % (42.0-52.0); Hemoglobin 13.8 g/dL (14.0-18.0); Immature Granulocyte Absolute 0.03 K/mm3 (0.00-0.031); Immature Granulocyte Percent A 0.5 % (0-0.5); Lymphocytes Absolute Auto 1.84 K/mm3 (0.9-3.2); Lymphocytes Percent Auto 27.8 % (18.3-44.2); Mean Corpuscular HGB Conc 35.9 g/dl (32-36); Mean Corpuscular Hemoglobin 32.2 pg (26-34); Mean Corpuscular Volume 89.5 fl (80-100); Mean Platelet Volume 10.3 fl (7.4-10.4); Monocytes Absolute Auto 0.7 K/mm3 (0.1-0.6); Monocytes Percent Auto 9.8 % (2.6-8.5); Neutrophils Percent Auto 59.7 % (45.5-73.1); Platelet Count Result 150 k/mm3 (150-375); Red Blood Count 4.29 M/mm3 (4.6-6.20); Red Cell Distribution Width 12.6 % (11.5-14.5); White Blood Count 6.6 K/mm3 (4.5-10.0)
[2024-05-01 00:14] LABS: Alanine Aminotransferase 36 U/L (6-50); Alkaline Phosphatase 135 U/L (38-126); Anion Gap 7 mmol/L (4-12); Aspartate Amino Transferase 30 U/L (17-59); Bilirubin,Total 1.2 mg/dL (0.2-1.3); Blood Urea Nitrogen 16 mg/dL (9-20); Calcium 8.5 mg/dL (8.4-10.2); Carbon Dioxide 28 mmol/L (22-30); Chloride 100 mmol/L (98-107); Estimated CRCL calculation 45 ml/min; Estimated Glomerular Filt Rate > 60; Glucose 150 mg/dL (65-110); Lipase 27 U/L (23-300); Sodium 135 mmol/L (137-145)
[2024-05-01 00:25] LABS: Troponin I < 0.012 ng/mL (0.000-0.034)
[2024-05-01 00:29] LABS: INR 1.4
[2024-05-01] MEDS: ACETAMINOPHEN 500 MG TABLET 1000 MG PO (01:29)
--- NOTE | 2024-05-01 03:22 | ECG_ITS ---
Test Date: 2024-05-01 03:34:21 Measurements Intervals [place] Rate: 62 P: 68 [place]: 204 QRS: -21 QRSD: 158 T: 135 QT: 497 QTc: 508 Interpretive Statements SINUS RHYTHM LEFT BUNDLE BRANCH BLOCK [120+ ms QRS DURATION, 80+ ms Q/S IN V1/V2, 85+ ms R IN I/aVL/V5/V6] Compared to ECG 04/30/2024 23:40:37 No significant changes Electronically Signed On 05-05-2024 11:17:23 SALON/SPA MANAGER by Henry Springer M.D.
[2024-05-01 03:47] LABS: Add Urine Microscopic? NO; Appearance Urine Clear (Clear); Bilirubin Urine Negative (Negative); Blood Urine Negative (Negative); Color Urine Yellow (Yellow); Glucose Urine UA Negative (Negative); Ketones Urine Trace mg/dL (Negative); Leukocyte Esterase Ur Negative LEU/UL (Negative); Nitrate Urine Negative (Negative); Protein Urine Negative (Negative); Specific Grav Ur 1.016 (1.001-1.035); pH Urine 5.5 (5.0-9.0)
[2024-05-01 04:02] LABS: Troponin I 0.012 ng/mL (0.000-0.034)
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
[2024-05-01] MEDS: POTASSIUM CHLORIDE 20 MEQ PACKET (FOR LIQUID) 40 MEQ PO (04:51)
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
--- OUTSIDE RECORDS SUMMARY | 2024-05-07 20:09 | XMS_ITS | Clinical Summary ---
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 ??There is severe left ventricular outflow obstruction with a peak gradient of 80mmHg at rest (increases further with Valsalva). ??* Consider obstruction due to hypertrophic cardiomyopathy versus volume depletion in setting of age related basal septal hypertrophy. ??* The left ventricular diastolic function is consistent with grade II diastolic dysfunction and increased left atrial filling pressure. ??* Right ventricle is normal in size with normal systolic function. ??* Mild pulmonary hypertension, estimated pulmonary arterial systolic pressure is 46 mmHg. ??* No hemodynamically significant valve disease. Patient Info Name: ? Karthik ?? Deandre Age: ? 84 years : ? 1940 Gender: ? Male Accession #: ? [id number] Ht: ? 69 in Wt: ? 213 lb BSA: ? 2.20 m2 HR: ? 71 bpm BP: ? 152 / ? 64 mmHg Heart Rhythm: ? Sinus Rhythm Exam Date: ? 04/07/2024 9:58 AM Exam Room: ? 101 Patient Status: ? I/P Study Site: ? [facility] Primary Location: ? [facility] EStud Info Technical Quality: ? Adequate Exam Type: ? ECHO COMPLETE Indications ?I48.0 - Paroxysmal atrial fibrillation (HCC) Procedure(s) ??* A complete 2D, color Doppler, and spectral Doppler transthoracic echocardiogram was performed. Reason for Technically Difficult ??Study: ? patient supine, restricted mobility, positional limitations Staff Referring Physician: ? Sunita García Ordering Provider: ? Sunita García Attending Physician: ? Sunita García Fellow: ? Elias Bueno Chief Projectionist: ? Tania Acevedo [facility] Left Ventricle ??Left ventricular systolic function is normal with an estimated ejection fraction of 71 % by biplane method of disks. The left ventricle is normal in size. The left ventricular mass is normal with concentric remodeling. Left ventricular segmental wall motion is normal. The left ventricular diastolic function is consistent with grade II diastolic dysfunction and increased left atrial filling pressure. There is asymmetric septal left ventricular hypertrophy (1.8cm) with systolic anterior motion of the mitral valve. ??There is severe left ventricular outflow obstruction with a peak gradient of 80mmHg at rest (increases further with Valsalva). Consider obtruction due to hypertrophic cardiomyopathy versus volume depletion in setting of age related basal septal hypertrophy. Right Ventricle ??The right ventricle is normal in size. Right ventricular systolic function is normal. Left Atrium ??The left atrium is normal in size with a left atrial volume index of 33 ml/m2 by BP MOD. Right Atrium ??The right atrium is normal in size. Atrial Septum ??Intact interatrial septum visualized by color Doppler imaging. Aortic Valve ??The aortic valve is trileaflet. There is no aortic valve regurgitation. There is no aortic valve stenosis with a peak velocity of 2 m/s, mean gradient of 12 mmHg, and aortic valve area of 3.73 cm2. Pulmonic Valve ??The pulmonic valve is grossly normal. There is no pulmonic valve stenosis. There is trace pulmonic regurgitation. Mitral Valve ??Obstructive systolic anterior motion of the mitral anterior leaflet. There is no mitral valve stenosis. There is mild mitral valve regurgitation. Tricuspid Valve ??The tricuspid valve is normal. There is no tricuspid valve stenosis. There is mild tricuspid valve regurgitation. Mild pulmonary hypertension, estimated pulmonary arterial systolic pressure is 46 mmHg. Inferior Vena Cava ??The inferior vena cava is normal in size (< 2.1 cm). There is > 50% collapse of the IVC upon inspiration with an estimated right atrial pressure of 3 mmHg. Pericardium/Pleural ??There is no pericardial effusion. Aorta ??The aortic root at the sinus of Valsalva is normal in size measuring 3.2 cm with an index of 1.5 cm/m2. The ascending aorta is normal in size measuring 3.7 cm with an index of 1.7 cm/m2. Measurements Left Ventricular Outflow Tract Name ? Value ?Normal LVOT 2D LVOT Diameter ? 2.1 cm ? LVOT Area ?3.5 cm2 ? LVOT Doppler LVOT Peak Velocity ? 2.3 m/s ? LVOT Peak Gradient ? 21 mmHg ? LVOT Mean Velocity ?160.07 cm/s ? LVOT Mean Gradient ? 12 mmHg ? LVOT VTI ? 48.7 cm ? LVOT VTI/AV VTI Ratio ?1.1 ? LVOT Stroke Volume ?171 ml ? LVOT Stroke Volume Index ?78 ml/m2 ? 35-58 LVOT CO ? 12.2 l/min ? LVOT CI ? 5.6 l/min/m2 Pulmonic Valve Name ? Value ?Normal PV 2D RVOT Diameter (2D) ?2.4 cm ? 1.7-2.7 RVOT Doppler RVOT Peak Velocity ? 1.1 m/s ? RVOT Peak Gradient ?5 mmHg ? RVOT Mean Gradient ?3 mmHg ? PV Doppler PV Peak Velocity ? 1.5 m/s ? PV Peak Gradient ?9 mmHg ? PV Mean Gradient ?4 mmHg ? PV Area (Cont Eq VTI) ? 3.63 cm2 ? PV Area Index (Cont Eq VTI) ? 1.65 cm2/m2 ? PV Area (Cont Eq Wong) ?3.4 cm2 ? PV Area Index (Cont Eq Wong) ? 1.54 cm2/m2 ? PV Regurgitation Doppler HI End Diastolic Gradient ?17 mmHg Mitral Valve Name ? Value ?Normal MV Doppler MV Peak Gradient ?6 mmHg ? MV Mean Gradient ?3 mmHg ? MV DI (VTI) ? 0.70 ? MV PHT ? 68 ms ? MV Area (PHT) ? 3.25 cm2 ? 4.00-5.00 MV Area (Cont Eq VTI) ? 4.99 cm2 ? MV Diastolic Function MV E Peak Velocity ? 1.0 m/sec ? MV A Peak Velocity ? 1.2 m/sec ? MV E/A ? 0.8 ? MV Decel Time (PW) ?242 ms ? MV A Wave Duration ? 89 ms ? MV Annular TDI MV Septal e' Velocity ? 5 cm/s ? >=8 MV E/e' (Septal) ?19 ? <=8 MV Lateral e' Velocity ?8 cm/s ?>=10 MV E/e' (Lateral) ? 12 ? <=8 MV e' Average ? 7 cm/s ? MV E/e' (Average) ? 15 Tricuspid Valve Name ? Value ?Normal TV Doppler TV Peak Velocity ? 2.5 m/s ? TV Peak Gradient ? 25 mmHg ? TV Mean Gradient ? 15 mmHg ? TV PHT ? 69 ms ? TV Area (PHT) ? 3.18 cm2 ? TV Regurgitation Doppler TR Peak Velocity ? 3.3 m/s ? TR Peak Gradient ? 43 mmHg ? Estimated PAP/RSVP RA Pressure ? 3 mmHg ? <=5 PA Systolic Pressure ? 46 mmHg ? <35 RV Systolic Pressure ? 46 mmHg ? <36 TV Diastolic Function TV E Peak Velocity ? 0.7 m/sec ? TV A Peak Velocity ? 0.6 m/sec ? TV E/A ? 1.3 ? 0.8-2.0 TV Decel Time ? 239 ms ? >=120 TV Annular TDI TV Lateral Bethany s' Velocity ?8 cm/s ? 10-19 Pulmonary Vessels Name ? Value ?Normal Pulmonary Artery Doppler PA End Diastolic Pressure for HI ? 20 mmHg ? Pulmonary Veins Pulm Vein Peak Systolic Velocity ? 55.4 cm/s ? Pulm Vein Peak Diastolic Velocity ? 32.9 cm/s ? Pulm Vein S/D Velocity Ratio ?2 ? Pulm Vein Ar Velocity ?36.2 cm/s ? Pulm Vein Ar Dur - MV A Dur ? 4 ms Aorta Name ? Value ?Normal Ascending Aorta Sinus of Valsalva Diameter ?3.2 cm ? 2.8-4.0 Sinus of Valsalva Index ?1.5 cm/m2 ? 1.3-2.1 Ao Sinotub Junction Diameter ?3.0 cm ? 2.6-3.2 Asc Ao Diameter ? 3.7 cm ? 2.2-3.8 Asc Ao Diameter Index ?1.7 cm/m2 ? 1.1-1.9 Septae/Shunt/Generic Name ? Value ?Normal Qp/Qs Qp/Qs ?0.6 Venous Name ? Value ?Normal IVC/SVC IVC Diameter ?1.3 cm ? <=2.1 Aortic Valve Name ? Value ?Normal AV 2D/MM AV Cusp Sep (MM) ?2.4 cm ? AV Doppler AV Peak Velocity ?2.45 m/s ? AV Peak Gradient ? 24 mmHg ? AV Mean Gradient ? 12 mmHg ? AV VTI ? 46 cm ? AV Area (Cont Eq VTI) ? 3.73 cm2 ?>=2.00 AV Area (Cont Eq Wong) ? 3.33 cm2 ? AV DI (VTI) ? 1.06 ? AV DI (Wong) ? 0.95 ? AV Regurgitation 2D LVOT Area ? 3.51 cm2 Ventricles Name ? Value ?Normal LV Dimensions 2D/MM IVS Diastolic Thickness (2D) ?1.0 cm ? 0.6-1.0 LVID Diastole (2D) ?4.3 cm ? 4.2-5.8 LVPW Diastolic Thickness (2D) ?1.2 cm ? 0.6-1.0 LVID Systole (2D) ? 2.8 cm ? 2.5-4.0 LV Mass (2D Cubed) ? 159 g ?88-224 LV Mass Index (2D Cubed) ? 72 g/m2 ?49-115 Relative Wall Thickness (2D) ?0.54 ?<=0.42 LV Fractional Shortening/Ejection Fraction 2D/MM LV Fractional Shortening (2D) ?34 % ? 25-43 LV EF (2D Teicholz) ? 63 % ? 52-72 LV Diastolic Volume (4C MOD) ? 94 ml ? LV EF (4C MOD) ?73 % ? LV Diastolic Volume (2C MOD) ? 95 ml ? LV EF (2C MOD) ?71 % ? LV Diastolic Volume (BP MOD) ? 94 ml ?62-150 LV Diastolic Volume Index (BP MOD) ?43 ml/m2 ? 34-74 LV Systolic Volume (BP MOD) ?27 ml ? 21-61 LV Systolic Volume Index (BP MOD) ?12 ml/m2 ? 11-31 LV EF (BP MOD) ?71 % ? 52-72 LV Diastolic Length (4C) ?9.2 cm ? LV Systolic Length (4C) ? 7.1 cm ? LV Stroke Volume (4C MOD) ?68 ml ? RV Dimensions 2D/MM RVID Diastole (2D) ?3.6 cm ? 2.5-3.5 RVID Systole (2D) ? 2.5 cm ? RV Basal Diastolic Dimension ? 3.2 cm ? 2.5-4.1 RV Diastolic Length (4C) ?7.9 cm ? 5.9-8.3 TAPSE ? 1.6 cm ? >=1.7 Atria Name ? Value ?Normal LA Dimensions LA Dimension (2D) ? 4.3 cm ? 3.0-4.1 LA Dimen Index (2D) ?1.9 cm/m2 ? LA Volume (BP MOD) ? 72 ml ? LA Volume Index (BP MOD) ?33 ml/m2 ? 16-34 RA Dimensions RA Area (4C) ?10 cm2 ?<=18 RA Area (4C) Index ?4 cm2/m2 EchoPAC Name ? Value ?Normal EUN G peak SL(Avg) (AWMA) ?-17.9 % Report Signatures Finalized by Sole ??Rufino on 04/07/2024 04:03 PM Reviewed by Fellow Elias ??Myles on 04/07/2024 02:49 PM Procedure Note Sole Joy MD - 04/07/2024 Summary * The left ventricle is normal in size, with normal systolic functionand an estimated ejection fraction of 71 % by biplane method of disks. Left ventricular wall motion is normal. * There is asymmetric septal left ventricular hypertrophy (1.8cm) with systolic anterior motion of the mitral valve. There is severe left ventricular outflow obstruction with a peak gradient of 80mmHg at rest (increases further with Valsalva). * Consider obstruction due to hypertrophic cardiomyopathy versusvolume depletion in setting of age related basal septal hypertrophy. * The left ventricular diastolic function is consistent with grade II diastolic dysfunction and increased left atrial filling pressure. * Right ventricle is normal in size with normal systolic function. * Mild pulmonary hypertension, estimated pulmonary arterial systolic pressure is 46 mmHg. * No hemodynamically significant valve disease. Patient Info Name: Karthik Carrera Age: 84 years : 1940 Gender: Male Ht: 69 in Wt: 213 lb BSA: 2.20 m2 HR: 71 bpm BP: 152 / 64 mmHg Heart Rhythm: Sinus Rhythm Exam Date: 04/07/2024 9:58 AM Exam Room: [facility] Patient Status: I/P Study Site: [facility] Primary Location: [facility] EStudy Info Technical Quality: Adequate Exam Type: ECHO COMPLETE Indications I48.0 - Paroxysmal atrial fibrillation (HCC) Procedure(s) * A complete 2D, color Doppler, and spectral Doppler transthoracic echocardiogram was performed. Reason for Technically Difficult Study: patient supine, restricted mobility, positional limitations Staff Referring Physician: Sunita García Ordering Provider: Sunita García Attending Physician: Sunita García Fellow: Elias Bueno Chief Projectionist: Tania Acevedo [facility] Left Ventricle Left ventricular systolic function is normal with an estimatedejection fraction of 71 % by biplane method of disks. The left ventricle is normalin size. The left ventricular mass is normal with concentric remodeling.Left ventricular segmental wall motion is normal. The left ventriculardiastolic function is consistent with grade II diastolic dysfunction and increasedleft atrial filling pressure. There is asymmetric septal left ventricular hypertrophy (1.8cm) with systolic anterior motion of the mitral valve.There is severe left ventricular outflow obstruction with a peak gradient [id number] at rest (increases further with Valsalva). Consider obtruction due to hypertrophic cardiomyopathy versus volume depletion in setting of agerelated basal septal hypertrophy. Right Ventricle The right ventricle is normal in size. Right ventricular systolicfunction is normal. Left Atrium The left atrium is normal in size with a left atrial volume index of33 ml/m2 by BP MOD. Right Atrium The right atrium is normal in size. Atrial Septum Intact interatrial septum visualized by color Doppler imaging. Aortic Valve The aortic valve is trileaflet. There is no aortic valveregurgitation. There is no aortic valve stenosis with a peak velocity of 2 m/s, meangradient of 12 mmHg, and aortic valve area of 3.73 cm2. Pulmonic Valve The pulmonic valve is grossly normal. There is no pulmonic valvestenosis. There is trace pulmonic regurgitation. Mitral Valve Obstructive systolic anterior motion of the mitral anterior leaflet.There is no mitral valve stenosis. There is mild mitral valve regurgitation. Tricuspid Valve The tricuspid valve is normal. There is no tricuspid valve stenosis.There is mild tricuspid valve regurgitation. Mild pulmonary hypertension,estimated pulmonary arterial systolic pressure is 46 mmHg. Inferior Vena Cava The inferior vena cava is normal in size (< 2.1 cm). There is > 50%collapse of the IVC upon inspiration with an estimated right atrial pressure of 3mmHg. Pericardium/Pleural There is no pericardial effusion. Aorta The aortic root at the sinus of Valsalva is normal in size measuring 3.2cm with an index of 1.5 cm/m2. The ascending aorta is normal in sizemeasuring 3.7 cm with an index of 1.7 cm/m2. Measurements Left Ventricular Outflow Tract Name Value Normal LVOT 2D LVOT Diameter 2.1 cm LVOT Area 3.5 cm2 LVOT Doppler LVOT Peak Velocity 2.3 m/s LVOT Peak Gradient 21 mmHg LVOT Mean Velocity 160.07 cm/s LVOT Mean Gradient 12 mmHg LVOT VTI 48.7 cm LVOT VTI/AV VTI Ratio 1.1 LVOT Stroke Volume 171 ml LVOT Stroke Volume Index 78 ml/m2 35-58 LVOT CO 12.2 l/min LVOT CI 5.6 l/min/m2 Pulmonic Valve Name Value Normal PV 2D RVOT Diameter (2D) 2.4 cm 1.7-2.7 RVOT Doppler RVOT Peak Velocity 1.1 m/s RVOT Peak Gradient 5 mmHg RVOT Mean Gradient 3 mmHg PV Doppler PV Peak Velocity 1.5 m/s PV Peak Gradient 9 mmHg PV Mean Gradient 4 mmHg PV Area (Cont Eq VTI) 3.63 cm2 PV Area Index (Cont Eq VTI) 1.65 cm2/m2 PV Area (Cont Eq Wong) 3.4 cm2 PV Area Index (Cont Eq Wong) 1.54 cm2/m2 PV Regurgitation Doppler HI End Diastolic Gradient 17 mmHg Mitral Valve Name Value Normal MV Doppler MV Peak Gradient 6 mmHg MV Mean Gradient 3 mmHg MV DI (VTI) 0.70 MV PHT 68 ms MV Area (PHT) 3.25 cm2 4.00-5.00 MV Area (Cont Eq VTI) 4.99 cm2 MV Diastolic Function MV E Peak Velocity 1.0 m/sec MV A Peak Velocity 1.2 m/sec MV E/A 0.8 MV Decel Time (PW) 242 ms MV A Wave Duration 89 ms MV Annular TDI MV Septal e' Velocity 5 cm/s >=8 MV E/e' (Septal) 19 <=8 MV Lateral e' Velocity 8 cm/s >=10 MV E/e' (Lateral) 12 <=8 MV e' Average 7 cm/s MV E/e' (Average) 15 Tricuspid Valve Name Value Normal TV Doppler TV Peak Velocity 2.5 m/s TV Peak Gradient 25 mmHg TV Mean Gradient 15 mmHg TV PHT 69 ms TV Area (PHT) 3.18 cm2 TV Regurgitation Doppler TR Peak Velocity 3.3 m/s TR Peak Gradient 43 mmHg Estimated PAP/RSVP RA Pressure 3 mmHg <=5 PA Systolic Pressure 46 mmHg <35 RV Systolic Pressure 46 mmHg <36 TV Diastolic Function TV E Peak Velocity 0.7 m/sec TV A Peak Velocity 0.6 m/sec TV E/A 1.3 0.8-2.0 TV Decel Time 239 ms >=120 TV Annular TDI TV Lateral Bethany s' Velocity 8 cm/s 10-19 Pulmonary Vessels Name Value Normal Pulmonary Artery Doppler PA End Diastolic Pressure for HI 20 mmHg Pulmonary Veins Pulm Vein Peak Systolic Velocity 55.4 cm/s Pulm Vein Peak Diastolic Velocity 32.9 cm/s Pulm Vein S/D Velocity Ratio 2 Pulm Vein Ar Velocity 36.2 cm/s Pulm Vein Ar Dur - MV A Dur 4 ms Aorta Name Value Normal Ascending Aorta Sinus of Valsalva Diameter 3.2 cm 2.8-4.0 Sinus of Valsalva Index 1.5 cm/m2 1.3-2.1 Ao Sinotub Junction Diameter 3.0 cm 2.6-3.2 Asc Ao Diameter 3.7 cm 2.2-3.8 Asc Ao Diameter Index 1.7 cm/m2 1.1-1.9 Septae/Shunt/Generic Name Value Normal Qp/Qs Qp/Qs 0.6 Venous Name Value Normal IVC/SVC IVC Diameter 1.3 cm <=2.1 Aortic Valve Name Value Normal AV 2D/MM AV Cusp Sep (MM) 2.4 cm AV Doppler AV Peak Velocity 2.45 m/s AV Peak Gradient 24 mmHg AV Mean Gradient 12 mmHg AV VTI 46 cm AV Area (Cont Eq VTI) 3.73 cm2 >=2.00 AV Area (Cont Eq Wong) 3.33 cm2 AV DI (VTI) 1.06 AV DI (Wong) 0.95 AV Regurgitation 2D LVOT Area 3.51 cm2 Ventricles Name Value Normal LV Dimensions 2D/MM IVS Diastolic Thickness (2D) 1.0 cm 0.6-1.0 LVID Diastole (2D) 4.3 cm 4.2-5.8 LVPW Diastolic Thickness (2D) 1.2 cm 0.6-1.0 LVID Systole (2D) 2.8 cm 2.5-4.0 LV Mass (2D Cubed) 159 g 88-224 LV Mass Index (2D Cubed) 72 g/m2 49-115 Relative Wall Thickness (2D) 0.54 <=0.42 LV Fractional Shortening/Ejection Fraction 2D/MM LV Fractional Shortening (2D) 34 % 25-43 LV EF (2D Teicholz) 63 % 52-72 LV Diastolic Volume (4C MOD) 94 ml LV EF (4C MOD) 73 % LV Diastolic Volume (2C MOD) 95 ml LV EF (2C MOD) 71 % LV Diastolic Volume (BP MOD) 94 ml 62-150 LV Diastolic Volume Index (BP MOD) 43 ml/m2 34-74 LV Systolic Volume (BP MOD) 27 ml 21-61 LV Systolic Volume Index (BP MOD) 12 ml/m2 11-31 LV EF (BP MOD) 71 % 52-72 LV Diastolic Length (4C) 9.2 cm LV Systolic Length (4C) 7.1 cm LV Stroke Volume (4C MOD) 68 ml RV Dimensions 2D/MM RVID Diastole (2D) 3.6 cm 2.5-3.5 RVID Systole (2D) 2.5 cm RV Basal Diastolic Dimension 3.2 cm 2.5-4.1 RV Diastolic Length (4C) 7.9 cm 5.9-8.3 TAPSE 1.6 cm >=1.7 Atria Name Value Normal LA Dimensions LA Dimension (2D) 4.3 cm 3.0-4.1 LA Dimen Index (2D) 1.9 cm/m2 LA Volume (BP MOD) 72 ml LA Volume Index (BP MOD) 33 ml/m2 16-34 RA Dimensions RA Area (4C) 10 cm2 <=18 RA Area (4C) Index 4 cm2/m2 EchoPAC Name Value Normal EUN G peak SL(Avg) (JOSEPHMA) -17.9 % Report Signatures Finalized by Sole Joy on 04/07/2024 04:03 PM Reviewed by Willard Bueno on 04/07/2024 02:49 PM Sunita García MD ECHO CUPID * (ABNORMAL) B-TYPE NATRIURETIC PEPTIDE (04/03/2024 2:58 PM [facility] SPECIALIST) [facility] Signature BNP 235(H) <100 pg/mL 04/03/2024 4:33 PM SERVICE C[facility] SPECIALIST [facility] Comment: A decision threshold of 100 pg/mL has been demonstrated to provide the maximal combination of sensitivity, specificity and predictive value for the diagnosis of congestive heart failure (CHF). ??Virtually all patients with no evidence of CHF have BNP values less than 100 pg/mL. A BNP value greater than 100 pg/mL is consistent with the diagnosis of CHF in the appropriate clinical setting. In a study of 693 patients (male and female) with diagnosed CHF, the following values were determined based on the NYHA functional classification system: NYHA Functional Class ?Mean Valule (pg/mL) ? % >100 pg/mL ?I ?320 ? 58.1 ?II ? 432 ? 73.0 ?III ?656 ? 79.0 ?IV ?1635 ? 98.3 ? Blood BLOOD SPECIMEN / Unknown Lab Venipuncture / Unknown 04/03/2024 2:58 PM [facility] SPECIALIST 04/03/2024 3:31 PM [facility] SPECIALIST Tye Mello APRN-VP COMMUNICATIONS LAB - CHEMISTRY ORDERABLES [address] [address], [facility] [phone] * (ABNORMAL) GLUCOSE - POINT OF CARE (04/03/2024 9:44 AM SERVICE C[facility] SPECIALIST) Only the most recent of2 resultswithin the time period is included. Glucose WB/POC 172(H) 70 - 99 mg/dL 04/03/2024 8:00 PM [facility] C[facility] SPECIALIST [facility] Specimen Type Cap Fingerstick 2023 8:00 PM SERVICE C[facility] SPECIALIST [facility] Blood BLOOD SPECIMEN / Unknown 04/03/2024 9:44 AM SERV[facility] C[facility] SPECIALIST 04/03/2024 8:00 PM [facility] SPECIALIST Sunita García MD LAB - POINT OF CARE ORDERABLES Performing Organization Address City/[facility]/ZIP Co de Phone Number [address] [address], [facility] [phone] * EKG 12-LEAD (04/03/2024 9:15 AM SERVICE C[facility] SPECIALIST) Only the most recent of2 resultswithin the time period is included. Ventricular Rate 149 BPM [facility] MUSE QRS Duration ms 132 ms [facility] MUSE Q-T Interval ms 296 ms [facility] MUSE QTC Calculation (Bezet) 466 ms [facility] MUSE Calculated R [place] -15 degrees [facility] MUSE Calculated T [place] 157 degrees [facility] MUSE Interpretation EKG ATRIAL FIBRILLATION WITH RAPID VENTRICULAR RESPONSE LEFT BUNDLE BRANCH BLOCK ABNORMAL ECG WHEN COMPARED WITH ECG OF 03-APR-2024 09:15, NO SIGNIFICANT CHANGE COMPARED WITH PRIOR EKG Confirmed by PAOLO MARLOW DO ([id number]) on 04/09/2024 1:09:09 PM [facility] MUSE 04/03/2024 9:15 AM SERVICE C[facility] SPECIALIST 04/09/2024 1:09 PM SERV[facility] C[facility] SPECIALIST Sunita García MD ECG ORDERABLES [facility] MUSE * XR Tibia Fibula Left 2Vw (04/01/2024 5:01 PM SERVICE C[facility] SPECIALIST) Only the most recent of2 resultswithin the time period is included. Anatomical Region Laterality Modality Lower Extremity Digital Radiogra phy 04/02/2024 7:15 AM SERVICE CENTER SPECIALIST Impressions 04/02/2024 3:46 PM SERV[facility] C[facility] SPECIALIST IMPRESSION: Postoperative changes consistent with open reduction and internal fixation of tibial plateau fracture with improved alignment. Hardware appears intact. > Dictated by Berhane Hayes MD, (residential real estate sales manager). IKaren MD have personally reviewed and interpreted this examination/study. > Interpreting Provider: Karen Woods MD on 04/02/2024 3:46 PM Narrative 04/02/2024 3:46 PM SERVICE CENTER SPECIALIST PROCEDURE: ??XR TIBIA FIBULA LEFT 2VW, DATE/TIME OF EXAM: ??04/01/2024 5:01 PM, LOCATION ??[facility] INDICATION: S82.132A: Closed fracture of medial portion of left tibial plateau, initial encounter ADDITIONAL CLINICAL INFORMATION: Ordering Provider Reason For Exam: ??fx COMPARISON: Left tib-fib radiograph from 03/31/24 TECHNIQUE: Frontal and lateral radiographs of the tibia and fibula. FINDINGS: *Knee immobilizer in place Postoperative changes consistent with open reduction and internal fixation of the tibial plateau fracture including plates and screws. Hardware appears well aligned without any evidence of fracturing. There is improved alignment of the fracture fragments with improved alignment of the knee joint. No periprosthetic lucencies are seen. Small amount of subcutaneous emphysema in the soft tissues of the knee, within expected limits in the immediate postoperative phase. Diffuse soft tissue swelling. There is near resolution of the previously seen lipohemarthrosis. Suprapatellar joint effusion is now trace in size. No new fractures are seen. Procedure Note Karen Woods MD - 04/02/2024 PROCEDURE: XR TIBIA FIBULA LEFT 2VW, DATE/TIME OF EXAM: 04/01/2024 5:01 PM, LOCATION [facility] INDICATION: S82.132A: Closed fracture of medial portion of left tibial plateau,initial encounter ADDITIONAL CLINICAL INFORMATION: Ordering Provider Reason For Exam: fx COMPARISON: Left tib-fib radiograph from 03/31/24 TECHNIQUE: Frontal and lateral radiographs of the tibia and fibula. FINDINGS: *Knee immobilizer in place Postoperative changes consistent with open reduction and internalfixation of the tibial plateau fracture including plates and screws. Hardware appears well aligned without any evidence of fracturing. There isimproved alignment of the fracture fragments with improved alignment of the knee joint. No periprosthetic lucencies are seen. Small amount ofsubcutaneous emphysema in the soft tissues of the knee, within expected limits in the immediate postoperative phase. Diffuse soft tissue swelling. There is near resolution of the previously seen lipohemarthrosis. Suprapatellar joint effusion is now trace in size. No new fractures are seen. IMPRESSION: Postoperative changes consistent with open reduction and internalfixation of tibial plateau fracture with improved alignment. Hardware appears intact. > Dictated by Berhane Hayes MD, (residential real estate sales manager). I, Karen Woods MD have personally reviewed and interpreted this examination/study. > Interpreting Provider: Karen Woods MD on 04/02/2024 3:46 PM Sunita García MD DIAGNOSTIC IMAGING ORDERABLES * [place] [facility] Surgery (04/01/2024 4:03 PM [facility] SPECIAL[facility]) Narrative [facility] - 04/01/2024 4:04 PM [facility] Fluoroscopy was used for this exam in the OR. Please see the Operative report. Karthik Erwin MD FLUOROSCOPY ORDERABL ES [facility] * ETT LINE PERFORMABLE (04/01/2024 2:54 PM [facility] SPECIAL[facility]) Narrative Rehana Decker APRN-CRNA - 04/01/2024 2:54 PM [facility] Rehana Decker APRN-CRNA ? 04/01/2024 ??3:17 PM Endotracheal Tube Placement: ? Patient Location: OR. Intubation Event Date/Time: ??04/01/2024 2:38 PM Procedure: intubation (73799) Procedure Section: ?? Sedation: under general anesthesia. [...] Staff Section ? Anesthesia Provider: Rehana Decker APRN-CHAR FILTER OPERATOR ? Provider #1: Joanie Blackburn MD, Performed the procedure. Additional Comments: Medical Student intubated patient under the supervision of Dr. Blackburn. ??. Joanie Blackburn MD GENERAL ANESTHESIA O RDERABLES * (ABNORMAL) URINALYSIS W/MICROSCOPIC NO CULTURE (04/01/2024 8:40 AM [facility]) Color UA Yellow Straw, Yellow 04/01/2024 9:15 AM [facility] Clarity UA Clear Clear 04/01/2024 9:15 AM [facility] Specific [place] UA 1.030 1.005 - 1.030 04/01/2024 9:15 AM [facility] pH UA 5.0 5.0 - 8.0 pH 04/01/2024 9:15 AM [facility] Protein UA Negative Negative 04/01/2024 9:15 AM [facility] Glucose UA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 visualized left tibial plateau fracture. Report dictated by Arslan Mercedes DO (residential real estate sales manager). IJil MD have personally reviewed and interpreted this examination/study. > Interpreting Provider: Jil Regalado MD on 03/31/2024 10:16 AM Etelvina Ambrose MD DIAGNOSTIC IMAGING O RDERABLES * XR CHEST 1VW PORTABLE (03/31/2024 9:42 AM [facility] C[facility] SPECIALIST) Anatomical Region Laterality Modality Chest Digital Radiogra phy 03/31/2024 9:51 AM SERVICE CENTER SPECIALIST Narrative 03/31/2024 10:27 AM SERVICE CENTER SPECIALIST PROCEDURE: ??XR CHEST 1VW PORTABLE, DATE/TIME OF EXAM: ??03/31/2024 9:42 AM, LOCATION ??[facility] INDICATION: Trauma ADDITIONAL CLINICAL INFORMATION: Ordering Provider Reason For Exam: Technologist Note: Additional: COMPARISON: None. TECHNIQUE: Frontal radiograph of the chest. FINDINGS/IMPRESSION: Detail is limited. The left costophrenic angle and the left inferior rib cage are not fully included. Low lung volumes with bronchovascular crowding. No consolidation. Possible cardiomegaly versus artifact of technique. No right pleural effusion. No pneumothorax. Upper mediastinal contours are normal. The aorta is atherosclerotic. No fracture is evident. Report dictated by Berhane Hayes MD, (Route Driver Salesperson). Jil Collier MD have personally reviewed and interpreted this examination/study. > Interpreting Provider: Jil Regalado MD on 03/31/2024 10:27 AM Procedure Note Jil Regalado MD - 03/31/2024 PROCEDURE: XR CHEST 1VW PORTABLE, DATE/TIME OF EXAM: 03/31/2024 9:42AM, LOCATION [facility] INDICATION: Trauma ADDITIONAL CLINICAL INFORMATION: Ordering Provider Reason For Exam: Technologist Note: Additional: COMPARISON: None. TECHNIQUE: Frontal radiograph of the chest. FINDINGS/IMPRESSION: Detail is limited. The left costophrenic angle and the left inferior rib cage are not fully included. Low lung volumes with bronchovascular crowding. No consolidation.Possible cardiomegaly versus artifact of technique. No right pleural effusion. No pneumothorax. Upper mediastinal contours are normal. The aorta is atherosclerotic. No fracture is evident. Report dictated by Berhane Hayes MD, (Route Driver Salesperson). Jil Collier MD have personally reviewed and interpreted this examination/study. > Interpreting Provider: Jil Regalado MD on 03/31/2024 10:27 AM Etelvina Ambrose MD DIAGNOSTIC IMAGING O RDERABLES * PT-INR [facility] (03/31/2024 9:18 AM SERVICE CENTER SPECIALIST) PT 13.4 12.1 - 14.8 Seconds 03/31/2024 9:51 AM [facility] INR 1.0 See Comment 03/31/2024 9:51 AM SERVICE CENTER SPECIALIST [facility] Comment:The suggested therap eutic range for standard coumadin (warfarin) therapy is an INR of 2.0-3.0. For high-risk patients (Mechanical Mitral Valve Prosthesis, etc.), the suggested prophylactic therapeutic range is an INR of 2.5-3.5. Blood BLOOD SPECIMEN / Unknown Venipuncture / Unknown 03/31/2024 9:18 AM SERVICE CENTER SPECIALIST 03/31/2024 9:21 AM SERV[facility] CENTER SPECIALIST Etelvina Ambrose MD LAB - COAGULATION OR DERABLES [facility] [address] [place] [address], [facility] [phone] * (ABNORMAL) VITAMIN D 25-HYDROXY (03/31/2024 9:18 AM SERVICE CENTER SPECIALIST) Pathologist [facility] Vitamin D, 25 Hydroxy 29.2(L) 30.0 - 80.0 ng/mL 03/31/2024 12:23 PM SERVICE CENTER SPECIALIST [facility] Comment: The recommendations for 25-Hydroxy Vitamin D clinical decision points are as follows: ? Deficient: ? <20.0 ng/mL ? Insufficient: ? 20.0 - 29.9 ng/mL ? Sufficient: ? 30.0 - 100.0 ng/mL ? Potential Toxicity: ??>100 ng/mL Reference: The Endocrine Society Clinical Practice Guidelines. 2011 If the 25-Hydroxy Vitamin D results are inconsitent with clinical evidence, it is recommended that follow-up testing using a method such as LC/MS/MS be performed to confirm the result. ? Blood BLOOD SPECIMEN / Unknown Venipuncture / Unknown 03/31/2024 9:18 AM SERVICE CENTER SPECIALIST 03/31/2024 9:22 AM SERVICE CENTER SPECIALIST Tanvi Rodney PA-C LAB - CHEMIS TRY ORDERABLES Performing Organization Address [facility] Co de Phone Number [facility] [address] [place] [address], [facility] [phone] * TYPE + SCREEN PANEL (03/31/2024 9:18 AM SERVICE CENTER SPECIALIST) [facility] Antibody Screen NEG 10:15 AM SERVICE CENTER SPECIALIST [facility] ABO Rh A POS 03/31/2024 10:15 AM SERVICE CENTER SPECIALIST [facility] Blood Bank BLOOD SPECIMEN / Unknown Venipuncture / Unknown 03/31/2024 9:18 AM SERVICE CENTER SPECIALIST 03/31/2024 9:28 AM SERV[facility] CENTER SPECIALIST Etelvina Ambrose MD LAB - BLOOD BANK ORD ERABLES Performing Organization Address City/[facility]/ZIP Co de Phone Number [facility] BLOOD BANK LAB [address] [place] [phone], [facility] [phone] * LIPASE BLOOD (03/31/2024 9:18 AM SERVICE CENTER SPECIALIST) Lipase 9 8 - 78 U/L 03/31/2024 9:54 AM [facility] Blood BLOOD SPECIMEN / Unknown Venipuncture / Unknown 03/31/2024 9:18 AM SERVICE CENTER SPECIALIST 03/31/2024 9:22 AM SERVICE CENTER SPECIALIST [facility] - 03/31/2024 9:54 AM SERVICE CENTER SPECIALIST Lipase results from the [employer] Al[employer] analyzer may not be comparable with other methodologies. Etelvina Ambrose MD LAB - CHEMISTRY ORDE RABLES Performing Organization Address City/[facility]/ZIP Co de Phone Number [address] [address], [facility] [phone] * ALCOHOL ETHYL BLOOD (03/31/2024 9:18 AM SERVICE CENTER SPECIALIST) Ethanol (mg/dL) <10 <10 mg/dL 9:54 AM [facility] Ethanol Calculated (g/dL) <0.010 <=0.010 g/dL 03/31/2024 9:54 AM [facility] Blood BLOOD SPECIMEN / Unknown Venipuncture / Unknown 03/31/2024 9:18 AM SERVICE CENTER SPECIALIST 03/31/2024 9:22 AM SERVICE CENTER SPECIALIST Narrative [facility] - 03/31/2024 9:54 AM SERVICE CENTER SPECIALIST Ethanol Interp <10: None Detected. Depression of EMERGENCY VEHICLE DRIVER: >100 mg/dl Potentially Critical: >250 mg/dl Potentially Fatal >400 mg/dl Ethanol in the patient's blood will contribute to the osmolar gap. Ethanol's contribution to the osmolar gap can be estimated by dividing the concentration of ethanol in mg/dL by 4.6. This test is for clinical use only and does not equal a RIA for legal purposes. Etelvina Ambrose MD LAB - CHEMISTRY ALDO CASTILLO [facility] [address] [place] [address], [facility] [phone] from Last 3 Months Advance Directives * Full Code (Latest Code Status on File) Date Activated Date Inactivated Comments 03/31/2024 2:03 PM 04/09/2024 9:48 PM Care Teams Television Receiver Analyzer Relationship Specialty Start Date End Date Eliazar Case DO [address] [facility] [address] [place], [place] [id number] PCP - General Internal Medicine 01/14/20
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
--- OUTSIDE RECORDS SUMMARY | 2024-05-07 20:09 | XMS_ITS | Encounter Summary ---
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 MEDICAL OFFICE ADMINISTRATOR Drake Holliday MD LAB - CHEMISTRY ORD ERABLES [address] [address], [place] [phone] * (ABNORMAL) CBC W AUTO DIFFERENTIAL (04/06/2024 1:42 AM MEDICAL OFFICE ADMINISTRATOR) [facility] WBC 6.5 4.0 - 10.7 x10E9/L 04/06/2024 1:55 AM [facility] RBC Count 3.41(L) 4.30 - 5.80 x10E12/L 04/06/2024 1:55 AM [facility] Hemoglobin 11.0(L) 13.3 - 17.5 g/dL 04/06/2024 1:55 AM [facility] Hematocrit 30.8(L) 38.7 - 51.1 % 04/06/2024 1:55 AM [facility] MCV 90.3 80.0 - 98.0 fL 04/06/2024 1:55 AM [facility] MCH 32.3 26.7 - 33.6 pg 04/06/2024 1:55 AM [facility] MCHC 35.7 31.7 - 36.3 g/dL 04/06/2024 1:55 AM [facility] RDW-CV 12.4 11.3 - 14.8 % 04/06/2024 1:55 AM [facility] Platelet Count 157 150 - 420 x10E9/L 04/06/2024 1:55 AM [facility] MPV 9.5 7.8 - 11.4 fL 04/06/2024 1:55 AM [facility] Neutrophil % 63.6 41.0 - 74.0 % 04/06/2024 1:55 AM [facility] Lymphocyte % 19.5 17.0 - 47.0 % 04/06/2024 1:55 AM [facility] Monocyte % 14.1(H) 3.0 - 11.0 % 04/06/2024 1:55 AM [facility] Eosinophil % 2.0 0.0 - 7.0 % 04/06/2024 1:55 AM [facility] Basophil % 0.3 0.0 - 1.6 % 04/06/2024 1:55 AM [facility] Immature Granulocytes % 0.5 0.0 - 1.0 % 04/06/2024 1:55 AM [facility] Neutrophil Absolute 4.11 1.60 - 7.50 x10E9/L 04/06/2024 1:55 AM [facility] Lymphocyte Absolute 1.26 1.00 - 4.40 x10E9/L 04/06/2024 1:55 AM [facility] Monocyte Absolute 0.91 0.15 - 1.00 x10E9/L 04/06/2024 1:55 AM [facility] Eosinophil Absolute 0.13 0.00 - 0.60 x10E9/L 04/06/2024 1:55 AM [facility] Basophil Absolute 0.02 0.00 - 0.13 x10E9/L 04/06/2024 1:55 AM [facility] Blood BLOOD SPECIMEN / Unknown Lab Venipuncture / Unknown 04/06/2024 1:42 AM MEDICAL OFFICE ADMINISTRATOR 04/06/2024 1:47 AM MEDICAL OFFICE ADMINISTRATOR Drake Holliday MD LAB - HEMATOLOGY OR DERABLES [facility] [address] [place] [address], [facility] [phone] * (ABNORMAL) BASIC METABOLIC PANEL (CALCIUM TOTAL) (04/06/2024 1:42 AM MEDICAL OFFICE ADMINISTRATOR) BUN 16 7 - 26 mg/dL 04/06/2024 2:13 AM [facility] Creatinine 0.89 0.71 - 1.16 mg/dL 04/06/2024 2:13 AM [facility] Sodium 136 136 - 145 mmol/L 04/06/2024 2:13 AM [facility] Potassium 3.8 3.5 - 4.5 mmol/L 04/06/2024 2:13 AM [facility] Chloride 102 98 - 107 mmol/L 04/06/2024 2:13 AM [facility] CO2 27 22 - 29 mmol/L 04/06/2024 2:13 AM [facility] Glucose 124(H) 70 - 99 mg/dL 04/06/2024 2:13 AM [facility] Calcium 8.5 8.4 - 10.2 mg/dL 04/06/2024 2:13 AM [facility] Anion Gap 7 6 - 16 04/06/2024 2:13 AM [facility] BUN/Creatinine Ratio 18 7 - 23 04/06/2024 2:13 AM [facility] Osmolality Calculated 285 275 - 295 mOsm/kg 04/06/2024 2:13 AM [facility] eGFR by CKD-EPI 85(L) >=90 mL/min/1.7 3 m2 04/06/2024 2:13 AM [facility] Blood BLOOD SPECIMEN / Unknown Lab Venipuncture / Unknown 04/06/2024 1:42 AM MEDICAL OFFICE ADMINISTRATOR 04/06/2024 1:47 AM MEDICAL OFFICE ADMINISTRATOR Drake Holliday MD LAB - CHEMISTRY ORD ERABLES Performing Organization Address [facility]/ZIP Co de Phone Number [address] [address], [facility] [phone] * (ABNORMAL) PHOSPHORUS BLOOD (04/05/2024 12:32 AM MEDICAL OFFICE ADMINISTRATOR) Phosphorus 2.5(L) 2.8 - 5.1 mg/dL 04/05/2024 1:38 AM MEDICAL OFFICE ADMINISTRATOR [facility] Blood BLOOD SPECIMEN / Unknown Lab Venipuncture / Unknown 04/05/2024 12:32 AM MEDICAL OFFICE ADMINISTRATOR 04/05/2024 1:12 AM MEDICAL OFFICE ADMINISTRATOR Sunita García MD LAB - CHEMISTRY ORD ERABLES Performing Organization Address [facility] Co de Phone Number [address] [address], [facility] [phone] * MAGNESIUM BLOOD (04/05/2024 12:32 AM MEDICAL OFFICE ADMINISTRATOR) Pathologist [facility] Magnesium 1.8 1.6 - 2.6 mg/dL 04/05/2024 1:38 AM MEDICAL OFFICE ADMINISTRATOR [facility] Blood BLOOD SPECIMEN / Unknown Lab Venipuncture / Unknown 04/05/2024 12:32 AM MEDICAL OFFICE ADMINISTRATOR 04/05/2024 1:12 AM MEDICAL OFFICE ADMINISTRATOR Drake Holliday MD LAB - CHEMISTRY ORD ERABLES Performing Organization Address [facility]/ZIP Co de Phone Number [address] [address], [facility] [phone] * (ABNORMAL) CBC W AUTO DIFFERENTIAL (04/05/2024 12:32 AM MEDICAL OFFICE ADMINISTRATOR) WBC 6.5 4.0 - 10.7 x10E9/L 04/05/2024 1:17 AM [facility] RBC Count 3.38(L) 4.30 - 5.80 x10E12/L 04/05/2024 1:17 AM [facility] Hemoglobin 10.9(L) 13.3 - 17.5 g/dL 04/05/2024 1:17 AM [facility] Hematocrit 30.6(L) 38.7 - 51.1 % 04/05/2024 1:17 AM [facility] MCV 90.5 80.0 - 98.0 fL 04/05/2024 1:17 AM [facility] MCH 32.2 26.7 - 33.6 pg 04/05/2024 1:17 AM [facility] MCHC 35.6 31.7 - 36.3 g/dL 04/05/2024 1:17 AM [facility] RDW-CV 12.4 11.3 - 14.8 % 04/05/2024 1:17 AM [facility] Platelet Count 161 150 - 420 x10E9/L 04/05/2024 1:17 AM [facility] MPV 10.1 7.8 - 11.4 fL 04/05/2024 1:17 AM [facility] Neutrophil % 68.0 41.0 - 74.0 % 04/05/2024 1:17 AM [facility] Lymphocyte % 16.9(L) 17.0 - 47.0 % 04/05/2024 1:17 AM [facility] Monocyte % 12.3(H) 3.0 - 11.0 % 04/05/2024 1:17 AM [facility] Eosinophil % 1.7 0.0 - 7.0 % 04/05/2024 1:17 AM [facility] Basophil % 0.5 0.0 - 1.6 % 04/05/2024 1:17 AM [facility] Immature Granulocytes % 0.6 0.0 - 1.0 % 04/05/2024 1:17 AM [facility] Neutrophil Absolute 4.43 1.60 - 7.50 x10E9/L 04/05/2024 1:17 AM [facility] Lymphocyte Absolute 1.10 1.00 - 4.40 x10E9/L 04/05/2024 1:17 AM [facility] Monocyte Absolute 0.80 0.15 - 1.00 x10E9/L 04/05/2024 1:17 AM [facility] Eosinophil Absolute 0.11 0.00 - 0.60 x10E9/L 04/05/2024 1:17 AM [facility] Basophil Absolute 0.03 0.00 - 0.13 x10E9/L 04/05/2024 1:17 AM [facility] Blood BLOOD SPECIMEN / Unknown Lab Venipuncture / Unknown 04/05/2024 12:32 AM MEDICAL OFFICE ADMINISTRATOR 04/05/2024 1:12 AM [facility] Drake Holliday MD LAB - HEMATOLOGY OR DERABLES [facility] [address] [place] [address], [facility] [phone] * (ABNORMAL) BASIC METABOLIC PANEL (CALCIUM TOTAL) (04/05/2024 12:32 AM [facility]) BUN 18 7 - 26 mg/dL 04/05/2024 1:38 AM [facility] Creatinine 0.94 0.71 - 1.16 mg/dL 04/05/2024 1:38 AM [facility] Sodium 138 136 - 145 mmol/L 04/05/2024 1:38 AM [facility] Potassium 4.0 3.5 - 4.5 mmol/L 04/05/2024 1:38 AM [facility] Chloride 103 98 - 107 mmol/L 04/05/2024 1:38 AM [facility] CO2 25 22 - 29 mmol/L 04/05/2024 1:38 AM [facility] Glucose 135(H) 70 - 99 mg/dL 04/05/2024 1:38 AM [facility] Calcium 8.3(L) 8.4 - 10.2 mg/dL 04/05/2024 1:38 AM [facility] Anion Gap 10 6 - 16 04/05/2024 1:38 AM [facility] BUN/Creatinine Ratio 19 7 - 23 04/05/2024 1:38 AM [facility] Osmolality Calculated 290 275 - 295 mOsm/kg 04/05/2024 1:38 AM [facility] eGFR by CKD-EPI 80(L) >=90 mL/min/1.7 3 m2 04/05/2024 1:38 AM [facility] Blood BLOOD SPECIMEN / Unknown Lab Venipuncture / Unknown 04/05/2024 12:32 AM MEDICAL OFFICE ADMINISTRATOR 04/05/2024 1:12 AM MEDICAL OFFICE ADMINISTRATOR Drake Holliday MD LAB - CHEMISTRY ORD ERABLES [facility] [address] [place] [address], [facility] [phone] * MAGNESIUM BLOOD (04/04/2024 12:17 AM MEDICAL OFFICE ADMINISTRATOR) Magnesium 1.7 1.6 - 2.6 mg/dL 04/04/2024 2:17 AM [facility] Blood BLOOD SPECIMEN / Unknown Lab Venipuncture / Unknown 04/04/2024 12:17 AM MEDICAL OFFICE ADMINISTRATOR 04/04/2024 1:48 AM MEDICAL OFFICE ADMINISTRATOR Drake Holliday MD LAB - CHEMISTRY ORD ERABLES [address] [address], [facility] [phone] * (ABNORMAL) CBC W AUTO DIFFERENTIAL (04/04/2024 12:17 AM MEDICAL OFFICE ADMINISTRATOR) WBC 6.8 4.0 - 10.7 x10E9/L 04/04/2024 1:54 AM [facility] RBC Count 3.27(L) 4.30 - 5.80 x10E12/L 04/04/2024 1:54 AM [facility] Hemoglobin 10.6(L) 13.3 - 17.5 g/dL 04/04/2024 1:54 AM [facility] Hematocrit 29.9(L) 38.7 - 51.1 % 04/04/2024 1:54 AM [facility] MCV 91.4 80.0 - 98.0 fL 04/04/2024 1:54 AM [facility] MCH 32.4 26.7 - 33.6 pg 04/04/2024 1:54 AM [facility] MCHC 35.5 31.7 - 36.3 g/dL 04/04/2024 1:54 AM [facility] RDW-CV 12.6 11.3 - 14.8 % 04/04/2024 1:54 AM [facility] Platelet Count 133(L) 150 - 420 x10E9/L 04/04/2024 1:54 AM [facility] MPV 10.5 7.8 - 11.4 fL 04/04/2024 1:54 AM [facility] Neutrophil % 65.8 41.0 - 74.0 % 04/04/2024 1:54 AM [facility] Lymphocyte % 19.5 17.0 - 47.0 % 04/04/2024 1:54 AM [facility] Monocyte % 12.8(H) 3.0 - 11.0 % 04/04/2024 1:54 AM [facility] Eosinophil % 0.9 0.0 - 7.0 % 04/04/2024 1:54 AM [facility] Basophil % 0.3 0.0 - 1.6 % 04/04/2024 1:54 AM [facility] Immature Granulocytes % 0.7 0.0 - 1.0 % 04/04/2024 1:54 AM [facility] Neutrophil Absolute 4.48 1.60 - 7.50 x10E9/L 04/04/2024 1:54 AM [facility] Lymphocyte Absolute 1.33 1.00 - 4.40 x10E9/L 04/04/2024 1:54 AM [facility] Monocyte Absolute 0.87 0.15 - 1.00 x10E9/L 04/04/2024 1:54 AM [facility] Eosinophil Absolute 0.06 0.00 - 0.60 x10E9/L 04/04/2024 1:54 AM [facility] Basophil Absolute 0.02 0.00 - 0.13 x10E9/L 04/04/2024 1:54 AM [facility] Blood BLOOD SPECIMEN / Unknown Lab Venipuncture / Unknown 04/04/2024 12:17 AM MEDICAL OFFICE ADMINISTRATOR 04/04/2024 1:48 AM MEDICAL OFFICE ADMINISTRATOR Drake Holliday MD LAB - HEMATOLOGY OR DERABLES [facility] [address] [place] [address], [facility] [phone] * (ABNORMAL) BASIC METABOLIC PANEL (CALCIUM TOTAL) (04/04/2024 12:17 AM MEDICAL OFFICE ADMINISTRATOR) BUN 26 7 - 26 mg/dL 04/04/2024 2:17 AM [facility] Creatinine 1.17(H) 0.71 - 1.16 mg/dL 04/04/2024 2:17 AM [facility] Sodium 138 136 - 145 mmol/L 04/04/2024 2:17 AM [facility] Potassium 4.0 3.5 - 4.5 mmol/L 04/04/2024 2:17 AM [facility] Chloride 104 98 - 107 mmol/L 04/04/2024 2:17 AM [facility] CO2 25 22 - 29 mmol/L 04/04/2024 2:17 AM [facility] Glucose 129(H) 70 - 99 mg/dL 04/04/2024 2:17 AM [facility] Calcium 8.0(L) 8.4 - 10.2 mg/dL 04/04/2024 2:17 AM [facility] Anion Gap 9 6 - 16 04/04/2024 2:17 AM [facility] BUN/Creatinine Ratio 22 7 - 23 04/04/2024 2:17 AM [facility] Osmolality Calculated 292 275 - 295 mOsm/kg 04/04/2024 2:17 AM [facility] eGFR by CKD-EPI 62(L) >=90 mL/min/1.7 3 m2 04/04/2024 2:17 AM [facility] Blood BLOOD SPECIMEN / Unknown Lab Venipuncture / Unknown 04/04/2024 12:17 AM MEDICAL OFFICE ADMINISTRATOR 04/04/2024 1:48 AM MEDICAL OFFICE ADMINISTRATOR Drake Holliday MD LAB - CHEMISTRY ORD ERABLES [facility] [address] [place] [address], [facility] [phone] * (ABNORMAL) PHOSPHORUS BLOOD (04/04/2024 12:17 AM MEDICAL OFFICE ADMINISTRATOR) [facility] Phosphorus 2.3(L) 2.8 - 5.1 mg/dL 04/04/2024 2:17 AM MEDICAL OFFICE ADMINISTRATOR [facility] Blood BLOOD SPECIMEN / Unknown Lab Venipuncture / Unknown 04/04/2024 12:17 AM MEDICAL OFFICE ADMINISTRATOR 04/04/2024 1:48 AM MEDICAL OFFICE ADMINISTRATOR Tye Mello [employer] TECHNICAL LEAD-SAND CUTTER OPERATOR LAB - CHEMISTRY ORDERABLES [facility] [address] [place] [address], [facility] [phone] * (ABNORMAL) B-TYPE NATRIURETIC PEPTIDE (04/03/2024 2:58 PM MEDICAL OFFICE ADMINISTRATOR) [facility] BNP 235(H) <100 pg/mL 04/03/2024 4:33 PM MEDICAL OFFICE ADMINISTRATOR [facility] Comment: A decision threshold of 100 [...] Lab Venipuncture / Unknown 04/03/2024 2:58 PM MEDICAL OFFICE ADMINISTRATOR 04/03/2024 3:31 PM MEDICAL OFFICE ADMINISTRATOR Tye Mello APRN-SAND CUTTER OPERATOR LAB - CHEMISTRY ORDERABLES Performing Organization Address [facility]/[place] de Phone Number [address] [address], [place] [phone] * (ABNORMAL) GLUCOSE - POINT OF CARE (04/03/2024 9:44 AM MEDICAL OFFICE ADMINISTRATOR) Glucose WB/POC 172(H) 70 - 99 mg/dL 04/03/2024 8:00 PM MEDICAL OFFICE ADMINISTRATOR [facility] Specimen Type Cap Fingerstick 2023 8:00 PM MEDICAL OFFICE ADMINISTRATOR [facility] Blood BLOOD SPECIMEN / Unknown 04/03/2024 9:44 AM MEDICAL OFFICE ADMINISTRATOR 04/03/2024 8:00 PM MEDICAL OFFICE ADMINISTRATOR Sunita García MD LAB - POINT OF CARE ORDERABLES Performing Organization Address [facility] Co de Phone Number [address] [address], [place] [phone] * EKG 12-LEAD (04/03/2024 9:15 AM MEDICAL OFFICE ADMINISTRATOR) Ventricular Rate 149 BPM [facility] QRS Duration ms 132 ms [facility] Q-T Interval ms 296 ms [facility] QTC Calculation (Bezet) 466 ms [facility] Calculated R Laurens -15 degrees [facility] Calculated T Laurens 157 degrees [facility] Interpretation EKG ATRIAL FIBRILLATION WITH RAPID VENTRICULAR RESPONSE LEFT BUNDLE BRANCH BLOCK ABNORMAL ECG WHEN COMPARED WITH ECG OF 03-APR-2024 09:15, NO SIGNIFICANT CHANGE COMPARED WITH PRIOR EKG Confirmed by PAOLO MARLOW DO ([id number]) on 04/09/2024 1:09:09 PM [facility] 04/03/2024 9:15 AM MEDICAL OFFICE ADMINISTRATOR 04/09/2024 1:09 PM MEDICAL OFFICE ADMINISTRATOR Sunita García MD ECG ORDERABLES Performing Organization Address [facility] Co de Phone Number [facility] * EKG 12-LEAD (04/03/2024 9:15 AM MEDICAL OFFICE ADMINISTRATOR) Ventricular Rate 140 BPM [facility] QRS Duration ms 136 ms [facility] Q-T Interval ms 346 ms [facility] QTC Calculation (Bezet) 528 ms [facility] Calculated R Laurens -19 degrees [facility] Calculated T [place] 155 degrees [facility] Interpretation EKG ATRIAL FIBRILLATION WITH RAPID VENTRICULAR RESPONSE LEFT BUNDLE BRANCH BLOCK ABNORMAL ECG NO PREVIOUS ECGS AVAILABLE Confirmed by PAOLO MARLOW DO ([id number]) on 04/09/2024 1:08:59 PM [facility] 04/03/2024 9:15 AM MEDICAL OFFICE ADMINISTRATOR 04/09/2024 1:08 PM MEDICAL OFFICE ADMINISTRATOR Sunita García MD ECG ORDERABLES [facility] * MAGNESIUM BLOOD (04/03/2024 7:51 AM MEDICAL OFFICE ADMINISTRATOR) Magnesium 1.6 1.6 - 2.6 mg/dL 04/03/2024 8:55 AM MEDICAL OFFICE ADMINISTRATOR [facility] Blood BLOOD SPECIMEN / Unknown Lab Venipuncture / Unknown 04/03/2024 7:51 AM MEDICAL OFFICE ADMINISTRATOR 04/03/2024 8:25 AM MEDICAL OFFICE ADMINISTRATOR Drake Holliday MD LAB - CHEMISTRY ORD ERABLES [facility] [address] [place] [id number], [facility] [phone] * (ABNORMAL) CBC W AUTO DIFFERENTIAL (04/03/2024 7:51 AM MEDICAL OFFICE ADMINISTRATOR) WBC 7.3 4.0 - 10.7 x10E9/L 04/03/2024 8:32 AM [facility] RBC Count 3.30(L) 4.30 - 5.80 x10E12/L 04/03/2024 8:32 AM [facility] Hemoglobin 10.8(L) 13.3 - 17.5 g/dL 04/03/2024 8:32 AM [facility] Hematocrit 30.2(L) 38.7 - 51.1 % 04/03/2024 8:32 AM [facility] MCV 91.5 80.0 - 98.0 fL 04/03/2024 8:32 AM [facility] MCH 32.7 26.7 - 33.6 pg 04/03/2024 8:32 AM [facility] MCHC 35.8 31.7 - 36.3 g/dL 04/03/2024 8:32 AM [facility] RDW-CV 12.5 11.3 - 14.8 % 04/03/2024 8:32 AM [facility] Platelet Count 110(L) 150 - 420 x10E9/L 04/03/2024 8:32 AM [facility] MPV 10.0 7.8 - 11.4 fL 04/03/2024 8:32 AM [facility] Neutrophil % 71.1 41.0 - 74.0 % 04/03/2024 8:32 AM [facility] Lymphocyte % 15.6(L) 17.0 - 47.0 % 04/03/2024 8:32 AM [facility] Monocyte % 11.4(H) 3.0 - 11.0 % 04/03/2024 8:32 AM [facility] Eosinophil % 1.0 0.0 - 7.0 % 04/03/2024 8:32 AM [facility] Basophil % 0.4 0.0 - 1.6 % 04/03/2024 8:32 AM [facility] Immature Granulocytes % 0.5 0.0 - 1.0 % 04/03/2024 8:32 AM [facility] Neutrophil Absolute 5.18 1.60 - 7.50 x10E9/L 04/03/2024 8:32 AM [facility] Lymphocyte Absolute 1.14 1.00 - 4.40 x10E9/L 04/03/2024 8:32 AM [facility] Monocyte Absolute 0.83 0.15 - 1.00 x10E9/L 04/03/2024 8:32 AM [facility] Eosinophil Absolute 0.07 0.00 - 0.60 x10E9/L 04/03/2024 8:32 AM [facility] Basophil Absolute 0.03 0.00 - 0.13 x10E9/L 04/03/2024 8:32 AM [facility] Blood BLOOD SPECIMEN / Unknown Lab Venipuncture / Unknown 04/03/2024 7:51 AM MEDICAL OFFICE ADMINISTRATOR 04/03/2024 8:24 AM [facility] Drake Holliday MD LAB - HEMATOLOGY OR DERABLES Performing Organization Address [facility]/State/[facility] Co de Phone Number [facility] [address] [place] [address], [facility] [phone] * (ABNORMAL) BASIC METABOLIC PANEL (CALCIUM TOTAL) (04/03/2024 7:51 AM MEDICAL OFFICE ADMINISTRATOR) BUN 27(H) 7 - 26 mg/dL 04/03/2024 8:56 AM [facility] Creatinine 1.18(H) 0.71 - 1.16 mg/dL 04/03/2024 8:56 AM [facility] Sodium 136 136 - 145 mmol/L 04/03/2024 8:56 AM [facility] Potassium 3.9 3.5 - 4.5 mmol/L 04/03/2024 8:56 AM [facility] Chloride 104 98 - 107 mmol/L 04/03/2024 8:56 AM [facility] CO2 25 22 - 29 mmol/L 04/03/2024 8:56 AM [facility] Glucose 138(H) 70 - 99 mg/dL 04/03/2024 8:56 AM [facility] Calcium 7.8(L) 8.4 - 10.2 mg/dL 04/03/2024 8:56 AM [facility] Anion Gap 7 6 - 16 04/03/2024 8:56 AM [facility] BUN/Creatinine Ratio 23 7 - 23 04/03/2024 8:56 AM [facility] Osmolality Calculated 289 275 - 295 mOsm/kg 04/03/2024 8:56 AM [facility] eGFR by CKD-EPI 61(L) >=90 mL/min/1.7 3 m2 04/03/2024 8:56 AM [facility] Blood BLOOD SPECIMEN / Unknown Lab Venipuncture / Unknown 04/03/2024 7:51 AM MEDICAL OFFICE ADMINISTRATOR 04/03/2024 8:25 AM MEDICAL OFFICE ADMINISTRATOR Drake Holliday MD LAB - CHEMISTRY ORD ERABLES [address] [id number], [facility] [phone] * (ABNORMAL) PHOSPHORUS BLOOD (04/03/2024 7:51 AM MEDICAL OFFICE ADMINISTRATOR) Phosphorus 1.9(L) 2.8 - 5.1 mg/dL 04/03/2024 8:56 AM [facility] Blood BLOOD SPECIMEN / Unknown Lab Venipuncture / Unknown 04/03/2024 7:51 AM MEDICAL OFFICE ADMINISTRATOR 04/03/2024 8:25 AM MEDICAL OFFICE ADMINISTRATOR [employer] OPERATOR LAB - CHEMISTRY ORDERABLES [address] [address], [place] [phone] * (ABNORMAL) GLUCOSE - POINT OF CARE (04/02/2024 5:41 AM MEDICAL OFFICE ADMINISTRATOR) [facility] Glucose WB/POC 162(H) 70 - 99 mg/dL 04/02/2024 9:47 AM [facility] Specimen Type Cap Fingerstick 2023 9:47 AM [facility] Blood BLOOD SPECIMEN / Unknown 04/02/2024 5:41 AM MEDICAL OFFICE ADMINISTRATOR 04/02/2024 9:47 AM MEDICAL OFFICE ADMINISTRATOR Sunita García MD LAB - POINT OF CARE ORDERABLES [facility] [address] [place] [address], [place] [phone] * MAGNESIUM BLOOD (04/02/2024 5:18 AM MEDICAL OFFICE ADMINISTRATOR) [facility] Magnesium 1.7 1.6 - 2.6 mg/dL 04/02/2024 5:59 AM [facility] Blood BLOOD SPECIMEN / Unknown Venipuncture / Unknown 04/02/2024 5:18 AM MEDICAL OFFICE ADMINISTRATOR 04/02/2024 5:26 AM MEDICAL OFFICE ADMINISTRATOR Drake Holliday MD LAB - CHEMISTRY ORD ERABLES [facility] [address] [place] [address], [place] [phone] * (ABNORMAL) CBC W AUTO DIFFERENTIAL (04/02/2024 5:18 AM MEDICAL OFFICE ADMINISTRATOR) [facility] WBC 9.6 4.0 - 10.7 x10E9/L 04/02/2024 5:39 AM [facility] RBC Count 3.63(L) 4.30 - 5.80 x10E12/L 04/02/2024 5:39 AM [facility] Hemoglobin 11.7(L) 13.3 - 17.5 g/dL 04/02/2024 5:39 AM [facility] Hematocrit 33.7(L) 38.7 - 51.1 % 04/02/2024 5:39 AM [facility] MCV 92.8 80.0 - 98.0 fL 04/02/2024 5:39 AM [facility] MCH 32.2 26.7 - 33.6 pg 04/02/2024 5:39 AM [facility] MCHC 34.7 31.7 - 36.3 g/dL 04/02/2024 5:39 AM [facility] RDW-CV 12.9 11.3 - 14.8 % 04/02/2024 5:39 AM [facility] Platelet Count 126(L) 150 - 420 x10E9/L 04/02/2024 5:39 AM [facility] MPV 9.9 7.8 - 11.4 fL 04/02/2024 5:39 AM [facility] Neutrophil % 72.8 41.0 - 74.0 % 04/02/2024 5:39 AM [facility] Lymphocyte % 13.0(L) 17.0 - 47.0 % 04/02/2024 5:39 AM [facility] Monocyte % 13.5(H) 3.0 - 11.0 % 04/02/2024 5:39 AM [facility] Eosinophil % 0.0 0.0 - 7.0 % 04/02/2024 5:39 AM [facility] Basophil % 0.3 0.0 - 1.6 % 04/02/2024 5:39 AM [facility] Immature Granulocytes % 0.4 0.0 - 1.0 % 04/02/2024 5:39 AM [facility] Neutrophil Absolute 6.95 1.60 - 7.50 x10E9/L 04/02/2024 5:39 AM [facility] Lymphocyte Absolute 1.24 1.00 - 4.40 x10E9/L 04/02/2024 5:39 AM [facility] Monocyte Absolute 1.29(H) 0.15 - 1.00 x10E9/L 04/02/2024 5:39 AM [facility] Eosinophil Absolute 0.00 0.00 - 0.60 x10E9/L 04/02/2024 5:39 AM [facility] Basophil Absolute 0.03 0.00 - 0.13 x10E9/L 04/02/2024 5:39 AM [facility] Blood BLOOD SPECIMEN / Unknown Venipuncture / Unknown 04/02/2024 5:18 AM MEDICAL OFFICE ADMINISTRATOR 04/02/2024 5:26 AM [facility] Drake Holliday MD LAB - HEMATOLOGY OR DERABLES Performing Organization Address [facility]/State/ZIP Co de Phone Number [facility] [address] [place] [address], [facility] [phone] * (ABNORMAL) BASIC METABOLIC PANEL (CALCIUM TOTAL) (04/02/2024 5:18 AM MEDICAL OFFICE ADMINISTRATOR) BUN 31(H) 7 - 26 mg/dL 04/02/2024 6:06 AM [facility] Creatinine 2.05(H) 0.71 - 1.16 mg/dL 04/02/2024 6:06 AM [facility] Sodium 141 136 - 145 mmol/L 04/02/2024 6:06 AM [facility] Potassium 4.4 3.5 - 4.5 mmol/L 04/02/2024 6:06 AM [facility] Chloride 106 98 - 107 mmol/L 04/02/2024 6:06 AM [facility] CO2 24 22 - 29 mmol/L 04/02/2024 6:06 AM [facility] Glucose 146(H) 70 - 99 mg/dL 04/02/2024 6:06 AM [facility] Calcium 8.0(L) 8.4 - 10.2 mg/dL 04/02/2024 6:06 AM [facility] Anion Gap 11 6 - 16 04/02/2024 6:06 AM [facility] BUN/Creatinine Ratio 15 7 - 23 04/02/2024 6:06 AM [facility] Osmolality Calculated 301(H) 275 - 295 mOsm/kg 04/02/2024 6:06 AM [facility] eGFR by CKD-EPI 32(L) >=90 mL/min/1.7 3 m2 04/02/2024 6:06 AM [facility] Blood BLOOD SPECIMEN / Unknown Venipuncture / Unknown 04/02/2024 5:18 AM MEDICAL OFFICE ADMINISTRATOR 04/02/2024 5:26 AM MEDICAL OFFICE ADMINISTRATOR Drake Holliday MD LAB - CHEMISTRY ORD ERABLES [facility] [address] [place] [phone], [facility] [phone] * XR Tibia Fibula Left 2Vw (04/01/2024 5:01 PM MEDICAL OFFICE ADMINISTRATOR) Anatomical Region Laterality Modality Lower Extremity Digital Radiogra phy 04/02/2024 7:15 AM MEDICAL OFFICE ADMINISTRATOR Impressions 04/02/2024 3:46 PM MEDICAL OFFICE ADMINISTRATOR IMPRESSION: Postoperative changes consistent with open reduction and internal fixation of tibial plateau fracture with improved alignment. Hardware appears intact. > Dictated by Berhane Hayes MD, (radiology physician). Karen Collier MD have personally reviewed and interpreted this examination/study. > Interpreting Provider: Karen Woods MD on 04/02/2024 3:46 PM Narrative 04/02/2024 3:46 PM MEDICAL OFFICE ADMINISTRATOR PROCEDURE: ??XR TIBIA FIBULA LEFT 2VW, DATE/TIME OF EXAM: ??04/01/2024 5:01 PM, LOCATION ??[facility] INDICATION: S82.132A: Closed fracture of medial portion [...] DATE/TIME OF EXAM: 04/01/2024 5:01 PM, LOCATION [facility] INDICATION: S82.132A: Closed fracture of medial portion [...] intact. > Dictated by Berhane Hayes MD, (radiology physician). I, Karen Woods MD have personally reviewed and interpreted this examination/study. > Interpreting Provider: Karen Woods MD on 04/02/2024 3:46 PM Sunita García MD DIAGNOSTIC IMAGING ORDERABLES * FL Mis Surgery (04/01/2024 4:03 PM MEDICAL OFFICE ADMINISTRATOR) Narrative [facility] - 04/01/2024 4:04 PM MEDICAL OFFICE ADMINISTRATOR Fluoroscopy was used for this exam in the OR. Please see the Operative report. Abimbola Erwin MD FLUOROSCOPY ORDERABL ES [facility] * BLOOD TYPE VERIFICATION (04/01/2024 8:40 AM MEDICAL OFFICE ADMINISTRATOR) ABO Rh A POS 04/01/2024 9:3 0 AM MEDICAL OFFICE ADMINISTRATOR [facility] BLOOD [facility] LAB Blood Bank BLOOD SPECIMEN / Unknown Venipuncture / Unknown 04/01/2024 8:40 AM MEDICAL OFFICE ADMINISTRATOR 04/01/2024 8:58 AM MEDICAL OFFICE ADMINISTRATOR Etelvina Ambrose MD LAB - BLOOD BANK ORD ERABLES [facility] BLOOD [facility] LAB [address] [place] [address], [facility] [phone] * (ABNORMAL) URINALYSIS W/MICROSCOPIC NO CULTURE (04/01/2024 8:40 AM MEDICAL OFFICE ADMINISTRATOR) Color UA Yellow Straw, Yellow 04/01/2024 9:15 AM [facility] Clarity UA Clear Clear 04/01/2024 9:15 AM [facility] Specific [place] UA 1.030 1.005 - 1.030 04/01/2024 9:15 AM [facility] pH UA 5.0 5.0 - 8.0 pH 04/01/2024 9:15 AM [facility] Protein UA Negative Negative 04/01/2024 9:15 AM [facility] Glucose UA Negative Negative 04/01/2024 9:15 AM [facility] Ketone UA 1+(A) Negative 04/01/2024 9:15 AM [facility] Bilirubin UA Negative Negative 04/01/2024 9:15 AM [facility] Blood UA Negative Negative 04/01/2024 9:15 AM [facility] Nitrite UA Negative Negative 04/01/2024 9:15 AM [facility] Leukocyte Esterase Negative Negative 04/01/2024 9:15 AM [facility] Urobilinogen UA Negative Negative mg/dL 04/01/2024 9:15 AM [facility] RBC UA 0-2 None Seen, 0-2, 3-5 /HPF 04/01/2024 9:15 AM [facility] WBC UA 0-5 None Seen, 0-5 /HPF 04/01/2024 9:15 AM [facility] Squamous Epithelial Cells UA None Seen None Seen, 0-2, 3-5 /HPF 04/01/2024 9:15 AM [facility] Mucus UA 1+ /LPF 04/01/2024 9:15 AM [facility] Hyaline Casts UA 0-2 None Seen, 0-2 /LPF 04/01/2024 9:15 AM [facility] Urine URINE SPECIMEN OBTAINED BY CLEAN CATCH PROCEDURE / Unknown Collection / Unknown 04/01/2024 8:40 AM MEDICAL OFFICE ADMINISTRATOR 04/01/2024 9:05 AM [facility] Narrative [facility] - 04/01/2024 9:15 AM MEDICAL OFFICE ADMINISTRATOR Etelvina Ambrose MD LAB - URINALYSIS ORD ERABLES [facility] [address] [place] [phone], [facility] [phone] * (ABNORMAL) URINE DRUG SCREEN IMMUNOASSAY (04/01/2024 8:40 AM MEDICAL OFFICE ADMINISTRATOR) [facility] Amphetamines Screen Urine Negative Negative : < 1000 ng/mL 04/01/2024 9:54 AM [facility] Barbiturates Screen Urine Negative Negative : < 200 ng/mL 04/01/2024 9:54 AM [facility] Benzodiazepine Screen Urine Negative Negative : < 200 ng/mL 04/01/2024 9:54 AM [facility] Opiates Urine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 at 0930, Until Discontinued, Flush peripheral IV catheter with 3 mL of normal saline every 8 hours. 0508 ($ Given - Provider: Marie Abraham RN)1420 ($ Given - Provider: Jakub Camp RN)2105 ($ Given - Provider: Sari Benson RN) 0625 ($ Given - Provider: Sari Benson RN)1247 ($ Given - Provider: Gemini Jorgensen RN)2203 ($ Given - Provider: Sari Benson RN) 0527 ($ Given - Provider: Sari Benson RN)1356 ($ Given - Provider: Gemini Jorgensen RN) acetaminophen (Tylenol) tablet 1,000 mg 1,000 mg, Oral, EVERY 8 HOURS, First dose on Sun03/31/24 at 1445, Until Discontinued, Patient preference for lesser PRN pain meds may be honored when the patient requests a less strong medication, a lower dose, or a less intrusive route of administration when the lesser drug, dose and route have been ordered for the patient. This patient request must be documented in the MAR. If both oral and IV options are ordered for the same pain severity, give oral first unless patient cannot tolerate oral intake 0508 ($ Given - Provider: Marie Abraham RN)1419 ($ Given - Provider: Jakub Camp RN)2105 ($ Given - Provider: Sari Benson RN) 0625 ($ Given - Provider: Sari Benson RN)1247 ($ Given - Provider: Gemini Jorgensen RN)2200 ($ Given - Provider: Sari Benson RN) 0527 ($ Given - Provider: Sari Benson RN)1356 ($ Given - Provider: Gemini Jorgensen RN) amiodarone (Cordarone) tablet 200 mg 200 mg, Oral, DAILY, First dose on Sun04/04/24 at 1030, Until Discontinued 0847 ($ Given - Provider: Jakub Camp RN) 0856 ($ Given - Provider: Gemini Jorgensen RN) 0845 ($ Given - Provider: Gemini Jorgensen RN) amLODIPine (Norvasc) tablet 5 mg (CANCELED) 5 mg, Oral, DAILY, First dose on Sun04/04/24 at 1045, Until Discontinued 0847 ($ Given - Provider: Jakub Camp RN) 0856 ($ Given - Provider: Gemini Jorgensen RN) apixaban (Eliquis) tablet 5 mg 5 mg, Oral, 2 TIMES DAILY, First dose on Sun04/03/24 at 2100, Until Discontinued 0847 ($ Given - Provider: Jakub Camp RN)2105 ($ Given - Provider: Sari Benson, ERIN) 0856 ($ Given - Provider: Gemini Jorgensen, ERIN)2200 ($ Given - Provider: Sari Benson RN) 0845 ($ Given - Provider: Gemini Jorgensen RN) dilTIAZem coated beads 24hr (Cardizem CD) capsule 240 mg 240 mg, Oral, DAILY, First dose on Sun04/08/24 at 1500, Until Discontinued, Do not crush or chew. 1422 ($ Given - Provider: Gemini Jorgensen RN) 0845 ($ Given - Provider: Gemini Jorgensen RN) furosemide (Lasix) tablet 20 mg 20 mg, Oral, DAILY, First dose on Sun04/04/24 at 1245, Until Discontinued 0847 ($ Given - Provider: Jakub Camp RN) 0856 ($ Given - Provider: Gemini Jorgensen RN) 0844 ($ Given - Provider: Gemini Jorgensen RN) lisinopril (Prinivil; Zestril) tablet 40 mg 40 mg, Oral, DAILY, First dose (after last reorder) on Sun04/06/24 at 0900, Until Discontinued 0847 ($ Given - Provider: Jakub Camp RN) 0856 ($ Given - Provider: Gemini Jorgensen RN) 0844 ($ Given - Provider: Gemini Jorgensen RN) magnesium sulfate 2 g in 50 mL bolus (COMPLETED) 2 g, at 25 mL/hr, Administer over 120 Minutes, Intravenous, ONCE, 1 dose, On Sun04/07/24 at 0645, Infuse at 1 gm/hr 0644 ($ New Bag/Syringe - Provider: Marie Abraham RN)0847 (Stopped - Provider: Jakub Camp RN) potassium - sodium phosphates (Phos-Nak) powder 1 packet (COMPLETED) 1 packet, Oral, 3 TIMES DAILY WITH MEALS, 6 doses, First dose on Sun04/07/24 at 0800, Last dose on Sun04/08/24 at 1800, Mix contents of packet in 6 to 8 ounces of water and drink, may taste better if cold Contains Phos 8 mmol, K+ 7 mEq, Na 7 mEq per packet 0847 ($ Given - Provider: Jakub Camp RN)1217 ($ Given - Provider: Jakub Camp, RN)1704 ($ Given - Provider: Jakub Camp, RN) 0856 ($ Given - Provider: Gemini Jorgensen RN)1247 ($ Given - Provider: Gemini Jorgensen RN)1709 ($ Given - Provider: Gemini Jorgensen, ERIN) potassium chloride ER (Klor-Con M) tablet 40 mEq (COMPLETED) 40 mEq, Oral, ONCE, 1 dose, On Sun04/08/24 at 0600, Do not crush or chew. 0625 ($ Given - Provider: Sari Benson RN) senna (Senokot) tablet 8.6 mg 8.6 mg, Oral, DAILY, First dose on Sun03/31/24 at 1445, Until Discontinued 0847 ($ Given - Provider: Jakub Camp RN) 0856 (Not Administered - Provider: Gemini Jorgensen RN - Reason: Refused-Patient) 0712 (Not Administered - Provider: Gemini Jorgensen RN - Reason: Refused-Patient) vitamin D3 (Cholecalciferol) 25 MCG (1000 UNITS) tablet 1,000 Units 1,000 Units, Oral, DAILY, First dose on Sun04/02/24 at 1700, Until Discontinued, 1000 units = 25 mcg 0847 ($ Given - Provider: Jakub Camp RN) 0856 ($ Given - Provider: Gemini Jorgensen RN) 0844 ($ Given - Provider: Gemini Jorgensen, ERIN) PRN Medication Order 04/07/2024 04/08/2024 04/09/2024 0.9% NaCl injection 1-10 mL(Linked Group 1) 1-10 mL, Intracatheter, PRN, Other, peripheral line flush, Starting on Sun03/31/24 at 0846, Until Sun04/09/24 at 2148, Flush peripheral IV catheter with 1-10 mL of normal saline before and after medications and prn to clear blood from the line or to verify patency. mjhor-menthol (Sarna/Dermasarra) lotion Topical, 3 TIMES DAILY PRN, Itching, Starting on Sun04/06/24 at 0959, Until Sun04/09/24 at 2148, Apply to itchy area, like the back 0852 ($ Given - Provider: Jakub Camp RN) oxyCODONE (immediate release) (Roxicodone) tablet 2.5 mg(Linked Group 2) 2.5 mg, Oral, EVERY 6 HOURS PRN, Moderate Pain, Mild Pain, Starting on Sun04/04/24 at 0629, Until Sun04/09/24 at 2148, Patient preference for lesser PRN pain meds may be honored when the patient requests a less strong medication, a lower dose, or a less intrusive route of administration when the lesser drug, dose and route have been ordered for the patient. This patient request must be documented in the MAR. If both oral and IV options are ordered for the same pain severity, give oral first unless patient cannot tolerate oral intake 1419 (See Alternative - Provider: Jakub Camp RN) 1002 (See Alternative - Provider: Gemini Jorgensen RN) 1108 (See Alternative - Provider: Gemini Jorgensen RN)1757 (See Alternative - Provider: Gemini Jorgensen RN) oxyCODONE (immediate release) (Roxicodone) tablet 5 mg(Linked Group 2) 5 mg, Oral, EVERY 6 HOURS PRN, Severe Pain, Starting on Sun04/04/24 at 0629, Until Sun04/09/24 at 2148, Patient preference for lesser PRN pain meds may be honored when the patient requests a less strong medication, a lower dose, or a less intrusive route of administration when the lesser drug, dose and route have been ordered for the patient. This patient request must be documented in the MAR. If both oral and IV options are ordered for the same pain severity, give oral first unless patient cannot tolerate oral intake 1419 ($ Given - Provider: Jakub Camp RN) 1002 ($ Given - Provider: Gemini Jorgensen RN) 1108 ($ Given - Provider: Gemini Jorgensen RN)1757 ($ Given - Provider: Gemini Jorgensen RN) polyethylene glycol 3350 (Miralax) packet 17 g 17 g, Oral, DAILY PRN, Constipation, Starting on Sun04/07/24 at 0630, Until Sun04/09/24 at 2147, Mix in 8 ounces of water, juice, soda, coffee or tea prior to administration traZODone (Desyrel) tablet 50 mg 50 mg, Oral, AT BEDTIME PRN, Insomnia, Starting on Sun04/09/24 at 1249, Until Sun04/09/24 at 2147 Linked Groups Order Group 1: SALINE LOCK, INSERT AND MAINTAIN (CANCELED) Routine, CONTINUOUS, Starting on Sun03/31/24 at 0900, Until Specified, New collection, Task Completed: Yes And 0.9% NaCl injection 3 mLJump to med 3 mL, Intracatheter, EVERY 8 HOURS, First dose on Sun03/31/24 at 0930, Until Discontinued, Flush peripheral IV catheter with 3 mL of normal saline every 8 hours. And 0.9% NaCl injection 1-10 mLJump to med 1-10 mL, Intracatheter, PRN, Other, peripheral line flush, Starting on Sun03/31/24 at 0846, Until Sun04/09/24 at 2147, Flush peripheral IV catheter with 1-10 mL of normal saline before and after medications and prn to clear blood from the line or to verify patency. Group 2: oxyCODONE (immediate release) (Roxicodone) tablet 2.5 mgJump to med 2.5 mg, Oral, EVERY 6 HOURS PRN, Moderate Pain, Mild Pain, Starting on Sun04/04/24 at 0629, Until Sun04/09/24 at 2147, Patient preference for lesser PRN pain meds may be honored when the patient requests a less strong medication, a lower dose, or a less intrusive route of administration when the lesser drug, dose and route have been ordered for the patient. This patient request must be documented in the MAR. If both oral and IV options are ordered for the same pain severity, give oral first unless patient cannot tolerate oral intake Or oxyCODONE (immediate release) (Roxicodone) tablet 5 mgJump to med 5 mg, Oral, EVERY 6 HOURS PRN, Severe Pain, Starting on Sun04/04/24 at 0629, Until Sun04/09/24 at 2147, Patient preference for lesser PRN pain meds may be honored when the patient requests a less strong medication, a lower dose, or a less intrusive route of administration when the lesser drug, dose and route have been ordered for the patient. This patient request must be documented in the MAR. If both oral and IV options are ordered for the same pain severity, give oral first unless patient cannot tolerate oral intake documented in this encounter Care Teams Ssis Etl Developer Relationship Specialty Start Date End Date Eliazar Case DO [address] [facility] [address] [address] PCP - General Internal Medicine 01/14/20 documented as of this encounter"
--- OUTSIDE RECORDS SUMMARY | 2024-05-07 20:09 | XMS_ITS | Encounter Summary ---
Author Organization [facility] Address [address] [facility] [place] [address] Care Team Providers Care Faculty Research Assistant Name Role Phone Eliazar Case DO Primary Care Provider [phone] Encounter Details Date Type Department Care Team (Latest Contact Info) Description 04/24/2024 Travel Social History Tobacco Use Types Packs/Day Years [...] Recorded Patient Health Questionnaire-2 Score 0 04/24/2024 [facility] Occupat ional [facility] - Occupational Stress [...] any time in the past 12 [address] [facility] [address], were you homeless or living in a group home (including now)? No 04/02/2024 Sex and Gender [...] No 04/02/2024 documented as of this encounter Plan of Treatment Upcoming Encounters Date Type Department Care Team (Late st Contact Info) Description 05/21/2024 11:30 AM DISPENSING OPTICIAN Office Visit [facility] - Orthopedics [address] [facility] [place] [address] Karthik Erwin MD [address] [facility] [place] [address] 06/10/2024 10:40 AM DISPENSING OPTICIAN Office Visit [facility] - Cardiology [address] [facility] [address] [place] [address] Tiesha Riggs MD [address] [place] [address] documented as of this encounter Visit Diagnoses Not on filedocumented in this encounter Care Teams Faculty Research Assistant Relationship Specialty Start Date End Date Eliazar Case DO [address] [facility] [address] [facility] [address] [place] [address] PCP - General Internal Medicine 01/14/20 documented as of this encounter
--- OUTSIDE RECORDS SUMMARY | 2024-05-07 20:09 | XMS_ITS | Encounter Summary ---
Author Organization [facility] Health Address [address] [place] [address] Care Team Providers Care Buildings And Grounds Coordinator Name Role Phone JeanSelvin saezaaron Juárez DO Primary Care Provider [phone] Encounter Details Date Type Department Care Team (Late st Contact Info) Description 04/24/2024 11:45 AM NURSE INFORMATICIST Office Visit [facility] - Orthopedics [address] [place] [address], [place] [phone] Karthik Erwin MD [address] [place] [address] OF [place] [address] Closed fracture of medial portion of left tibial plateau with routine healing, subsequent encounter (Primary Dx) Social History Tobacco Use Types Packs/Day Years [...] Recorded Patient Health Questionnaire-2 Score 0 04/24/2024 [facility] [place] of Occupat ional Health - Occupational Stress [...] any time in the past 12 m [facility], were you homeless or living in a correction (including now)? No 04/02/2024 Sex and Gender [...] No 04/02/2024 documented as of this encounter Progress Notes * Karthik Erwin MD - 05/01/2024 11:27 AM CST Images from the original note were not included. Orthopaedic Trauma Surgery Clinic Note Karthik Carrera 84 year old male CSN: [id number] Date of service: 05/01/2024 HPI Karthik Carrera is a 84 year old male who had a left proximal tibial plateau fracture and underwent open reduction internal fixation on 04/01/2024. He had no issues and was discharged to a facility and this is his first postop visit. He has no new complaints and presents in a wheelchair today. 04/24/2024 Patient-Reported Satisfaction Current state satisfactory? Yes Prior treatment? Yes - surgery Function since surgery Improved Currently taking narcotics? Yes 04/24/2024 PROMIS Pain Interference PROMIS PI Score 63 (moderate) 04/24/2024 PROMIS Physical Function PROMIS PF Score 21 (severe dysfunction) 04/24/2024 Depression Screening PHQ-2 Score Incomplete Patient Health Questionnaire-2 Score 0 Review of Systems A complete organ system review completed and is only significant for ortho. Medical History Past Medical History: Diagnosis Date Essential hypertension Paroxysmal atrial fibrillation (HCC) Non-contributory Surgical History Past Surgical History: Procedure Laterality Date Cholecystectomy Fracture Repair Left 04/01/2024 Left; OPEN REDUCTION INTERNAL FIXATION (ORIF) TIBIA/FIBULA Hernia Repair Non-contributory MEDICATIONS Current Outpatient Medications on File Prior to Visit Medication Sig Dispense Refill acetaminophen (Tylenol) 500 MG tablet Take 2 (two) tablets by mouth every 8 hours as needed for Fever or Pain Maximum allowable Acetaminophen amount = 4 Grams (4000 mg) / 24 hours. amiodarone (Cordarone) 200 MG tablet Take 1 (one) tablet by mouth once daily apixaban (Eliquis) 5 MG tablet Take 1 (one) tablet by mouth 2 times daily camphor-menthol (Sarna/Dermasarra) 0.5-0.5 % lotion Apply to affected area 3 times daily as needed for Itching dilTIAZem coated beads 24hr (Cardizem CD) 240 MG capsule Take 1 (one) capsule by mouth once daily Do not crush or chew. furosemide (Lasix) 20 MG tablet Take 1 (one) tablet by mouth once daily lisinopril (Prinivil; Zestril) 40 MG tablet Take 1 (one) tablet by mouth once daily oxyCODONE, immediate release, (Roxicodone) 5 MG tablet Take 1 (one) tablet by mouth every 6 hours as needed polyethylene glycol 3350 (Miralax) 17 g packet Take 17 (seventeen) g by mouth once daily as needed for Constipation senna (Senokot) 8.6 MG tablet Take 1 (one) tablet by mouth once daily traZODone (Desyrel) 50 MG tablet Take 1 (one) tablet by mouth nightly as needed for Insomnia vitamin D3 (Cholecalciferol) 25 MCG (1000 UNITS) tablet Take 1 (one) tablet by mouth once daily No current facility-administered medications on file prior to visit. Allergies Allergies Allergen Reactions Amoxicillin-Pot Clavulanate Rash Family History family history is not on file. Non-contributory Social History Social History Tobacco Use Smoking status: Never Smokeless tobacco: Never Substance Use Topics Alcohol use: Not Currently Physical Exam There were no vitals taken for this visit. General exam: patient cooperative with exam Constitutional: well developed, well nourished, no acute distress Head: normocephalic, atraumatic ENT: moist oral mucosa Eyes: non-icteric sclera Cardiovascular: regular rate Respiratory: effort normal, no respiratory distress Neurological: awake, AOx4 Psychiatric: no distress, mood and affect normal, behavior normal, judgment and thought content normal. Incision well approximated with no erythema, swelling or drainage. Sutures will auto DC. Good Varus/ valgus stability with no axial dynamic instability noted on stress testing. No hardware irritation noted. ROM 0-125 X-ray demo: Imaging Images independently reviewed and interpreted by myself. XR : X-ray demo:complete healing of metaphyseal and articular components with no loss of articular reduction noted. h bony incorporation noted.. ARticular suraface reduction is well maintained at this time. No hardware issues are noted. No evidence of hardware loosening or plate fatigue or motion noted. No diagnosis found. This is a 84 year old male who is 3 + weeks status post ORIF left plateau. Mr. 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 Work: unable to work Prescriptions: Follow up in 6 weeks XR needed at follow up: Yes - 3 view(s) XR of the knee He will call in the interim with any questions or concerns. Karthik Erwin MD 05/01/2024 11:27 AM E INFORMATICIST * Jania Robert - 04/24/2024 11:05 AM CST PO PROCEDURE: 04/01/2024 Open reduction and internal fixation, left bicondylar tibial plateau fracture. Patient is residing at [facility] E INFORMATICIST documented in this encounter Plan of Treatment Upcoming Encounters Date Type Department Care Team (Late st Contact Info) Description 05/21/2024 11:30 AM NURSE INFORMATICIST Office Visit [facility]ics [address] [facility], [facility] [place] [phone] Karthik Erwin MD [address] [facility] OF [place] [address] 06/10/2024 10:40 AM NURSE INFORMATICIST [facility] [address] [facility], [facility] [address] [place] [address] Tiesha Riggs MD [address] [place] [phone] documented as of this encounter Visit Diagnoses Diagnosis Closed fracture of medial portion of left tibial plateau with routine healing, subsequent encounter- Primary documented in this encounter Care Teams Buildings And Grounds Coordinator Relationship Specialty Start Date End Date Eliazar Case DO [address] [facility] [address] [place] [address] PCP - General Internal Medicine 01/14/20 documented as of this encounter
--- OUTSIDE RECORDS SUMMARY | 2024-05-07 20:09 | XMS_ITS | Encounter Summary ---
Author Organization [facility] Health Address [address] [facility] [place] [address] Care Team Providers Care Lactation Nurse Name Role Phone JeanSelvin saezaaron Juárez DO Primary Care Provider [phone] Encounter Details Date Type Department Care Team (Late st Contact Info) Description 04/14/2024 Orders Only [facility] - [facility] [address] [place] [address], [place] [address] Karthik Erwin MD [address] [place] [address] [place] [address] Closed fracture of medial portion of left tibial plateau, initial encounter Social History Tobacco Use Types Packs/Day [...] care, and heating? Not very hard 04/02/2024 [facility] [place] of Occupat ional Health - Occupational Stress [...] any time in the past 12 m [facility], were you homeless or living in a [facility] (including now)? No 04/02/2024 Sex and Gender [...] st Contact Info) Description 05/21/2024 11:30 AM RN L AND D Office Visit [facility] - Orthopedics [address] [place] [address], [place] [address] Karthik Erwin MD [address] [place] [address] [place] [address] 06/10/2024 10:40 AM RN L AND D Office Visit [facility] - Cardiology [address] [facility], [facility] [address] [place] [address] Tiesha Riggs MD [address] [place] [phone] documented as of this encounter Results * XR Knee Left 3Vw (04/24/2024 11:05 AM RN L AND D) Anatomical Region Laterality Modality Lower Extremity Computed Radiogr aphy 04/24/2024 2:04 PM RN L AND D Narrative 04/24/2024 2:15 PM RN L AND D PROCEDURE: ??XR KNEE LEFT 3VW DATE/TIME OF [...] PM Karthik Erwin MD DIAGNOSTIC IMAGING O [facility]ANTY documented in this encounter Visit Diagnoses Diagnosis Closed fracture of medial portion of left tibial plateau, initial encounter- Primary Closed fracture of medial portion of left tibial plateau, initial encounter documented in this encounter Care Teams Lactation Nurse Relationship Specialty Start Date End Date Eliazar Case DO [address] [facility], [facility] [address] [facility] [address] [place] [address] PCP - General Internal Medicine 01/14/20 documented as of this encounter
--- OUTSIDE RECORDS SUMMARY | 2024-05-07 20:10 | XMS_ITS | Encounter Summary ---
Author Organization [facility] Address [address] [place] [address]. [place] [address] [place] [address] Care Team Providers Care Sales Representative Livestock Name Role Phone Eliazar Case MD Primary Care Provider [phone] Reason for Referral * (Routine) - Closed Specialty Diagnoses / Procedures Referred By Matthew soler Referred To Contact Procedures Colonoscopy [facility] [place] [address] Phone: tel: Referral ID Status Reason Start Date Expiration Date Visits Re quested Visits Authorized [id number] Closed 04/14/2019 05/15/2020 1 1 LABORER Reason for Visit * Auth/Cert Specialty Diagnoses / Procedures Referred By Matthew soler Referred To Contact Diagnoses CHRONIC DIARRHEA PHARYNESOPHAGEAL DYSPHAGIA HISTORY OF COLON POLYPS Procedures EGD/COLON WITH BIOPSY COLONOSCOPY WITH BIOPSY Referral ID Status Reason Start Date Expiration Date Visits Re quested Visits Authorized [id number] 1 1 Encounter Details Date Type Department Care Team (Latest Contact Info) Description 04/14/2019 10:08 AM MINE LABORER - 04/14/2019 1:50 PM MINE LABORER Hospital Encounter [place], [place] [id number] Nima Dawn MD [address] [place] [address] [phone] Discharge Disposition: Home or Self Care (Routine Discharge) Social History Tobacco Use Types Packs/Day Years Used Date Smoking Tobacco: Never Smokeless Tobacco: Never Alcohol Use Standard Drinks/Week Comments Yes 0 (1 standard drink = 0.6 oz pur e alcohol) rare Sex and Gender Information Value Date Recorded Sex Assigned at Not on file Legal Sex Male 3:03 PM CDT Gender Identity Not on file Sexual Orientation Not on file documented as of this encounter Last Filed Vital Signs Vital Sign Reading Time Taken Comments Blood Pressure 158/89 04/14/2019 1:00 PM MINE LABORER Pulse 90 04/14/2019 1:00 PM MINE LABORER Temperature 36.3 ??C (97.4 ??F) 04/14/2019 12:[address] Respiratory Rate 17 04/14/2019 1:00 PM MINE LABORER Oxygen Saturation 94% 04/14/2019 1:00 PM MINE LABORER Inhaled Oxygen Concentration - - Weight 94.8 kg (209 lb) 04/14/2019 10:52 AM MINE LABORER Height 175.3 cm (5' 9 ) 04/10/2019 3:46 PM MINE LABORER Body Mass Index 30.86 04/10/2019 3:46 PM MINE LABORER documented in this encounter Discharge Instructions * Attachments The following attachments cannot be sent through Care Everywhere. * Upper GI Endoscopy Discharge Instructions (Paraguayan) * Colonoscopy Discharge Instructions (Paraguayan) * General Anesthesia Discharge Instructions (Paraguayan) documented in this encounter Medications at Time of Discharge aspirin EC (ASPIRIN EC) 81 MG tablet Take 81 mg by mouth daily. atenolol 50 MG tablet Take 50 mg by mouth daily. 3 02/12/2019 dicyclomine 10 MG capsuleIndication s:Diarrhea, unspecified type Take 1 capsule (10 mg total) by mouth 4 (four) times daily with meals and nightly. 240 capsule 1 03/07/2019 lisinopril 10 MG tablet Take 10 mg by mouth daily. 1 02/13/2019 MULTIPLE VITAMINS/MINERALS OR Na sulfate-K sulfate-Mg sulfate (SUPREP BOWEL PREP KIT) 17.5-3.13-1.6 GM/177ML SolutionIndicatio ns:Diarrhea, unspecified type Take 177 mLs by mouth every 12 (twelve) hours. Take as directed by instruction sheet. 2 Bottle 03/07/2019 Nutritional Supplements (IBS SUPPORT OR) Take 1 capsule by mouth 4 (four) times daily. documented as of this encounter Progress Notes * Nima Dawn MD - 04/14/2019 1:50 PM CST You have Barretts esophagus. See me to discuss LABORER documented in this encounter H&P Notes * Nima Dawn MD - 04/14/2019 11:53 AM CST GASTROENTEROLOGY H&P 04/14/2019 11:53 AM Reason for Consult: GERD, dysphagia, diarrhea History of Present Illness: Abimbola Francisco is a 79-year-old comes in for evaluation of some dysphagia previous dilation procedure and also diarrhea There is no problem list on file for this patient. Past Medical History: Diagnosis Date ??? Diabetes (CMS/HCC) pt controls it with food intake ??? Hypertension Past Surgical History: Procedure Laterality Date ??? CHOLECYSTECTOMY ??? COLONOSCOPY [address] [place] [address] ??? COLONOSCOPY 09/17/2014 Dr. Feng ascending and rectal tubular adenoma polyps removed, random bx with mild colitis with EOS. ??? EGD 06/08/1999 Dr. Arthur-erosion, esophagitis, and stricture ??? HERNIA REPAIR ??? SINUS SURGERY Bilateral Family History Problem Relation Name Age of Onset ??? Diabetes Mother ??? Cancer Mother Skin ??? Parkinson's Disease Maternal Grandmother ??? Parkinson's Disease Maternal Grandfather ??? Parkinson's Disease Paternal Grandmother ??? Parkinson's Disease Paternal Grandfather Social History Socioeconomic History ??? Marital status: Single Spouse name: Not on file ??? Number of children: Not on file ??? Years of education: Not on file ??? Highest education level: Not on file Occupational History ??? Not on file Social Needs ??? Financial resource strain: Not on file ??? Food insecurity: Worry: Not on file Inability: Not on file ??? Transportation needs: Medical: Not on file Non-medical: Not on file Tobacco Use ??? Smoking status: Never Smoker ??? Smokeless tobacco: Never Used Substance and Sexual Activity ??? Alcohol use: Yes Comment: rare ??? Drug use: No ??? Sexual activity: Not on file Lifestyle ??? Physical activity: Days per week: Not on file Minutes per session: Not on file ??? Stress: Not on file Relationships ??? Social connections: Talks on phone: Not on file Gets together: Not on file Attends druze service: Not on file Active member of club or organization: Not on file Attends meetings of clubs or organizations: Not on file Relationship status: Not on file ??? Intimate partner violence: Fear of current or ex partner: Not on file Emotionally abused: Not on file Physically abused: Not on file Forced sexual activity: Not on file Other Topics Concern ??? Not on file Social History Narrative ??? Not on file Allergies Allergen Reactions ??? Augmentin [Amoxicillin-Pot Clavulanate] Rash REVIEW OF SYSTEMS: General: no fever, chills, malaise, fatigue, weight loss or gain. HEENT: no acute changes in vision or hearing Respiratory: no shortness of breath, cough, sputum production, hemoptysis Cardiovascular: no chest pain, palpitations, orthopnea Gastrointestinal: as per HPI Genitourinary: no dysuria, hematuria, incontinence Musculoskeletal: no extremity edema, myalgia. Neuro: no dizziness, headache, seizures Hematology: no easy bruising, bleeding Skin: no new skin rashes or lesions. PHYSICAL EXAM: Filed Vitals: 04/10/19 1546 04/14/19 1052 BP: (!) 156/80 Pulse: 87 Resp: 12 Temp: 98.5 ??F (36.9 ??C) TempSrc: Temporal SpO2: 97% Weight: 94.8 kg (209 lb) 94.8 kg (209 lb) Height: 5' 9 (1.753 m) Wt Readings from Last 3 Encounters: 04/14/19 94.8 kg (209 lb) 03/07/19 94.8 kg (209 lb) General: pleasant, no distress HEENT: conjunctivae/corneas clear. PERRL. Neck: supple, symmetrical, trachea midline Lungs: clear to auscultation bilaterally Heart: regular rate and rhythm, normal s1-s2 Abdomen: soft, non-tender, non-distended, bowel sounds normal, no palpable masses Rectal: deferred Extremities: no edema, palpable pulses Skin: no obvious rashes, no jaundice Neuro: Alert, oriented, cooperative Labs: No results for input(s): WBC, HGB, MCV, PLT, INR in the last 168 hours. No results for input(s): NA, K, CL, CO2, BUN in the last 168 hours. Invalid input(s): CREATININE No results for input(s): AST, ALT, ALB in the last 168 hours. Invalid input(s): ALKPHOS, TBILI ? Assessment and Plan: GERD, dysphagia, diarrhea The procedural risks, benefits, alternatives were discussed fully with the patient, including the risks of complications of bleeding, infection, bowel injury or perforation, anesthesia related risks but not limited to the above. Post complication remedies could include hospitalization, antibiotics,surgery or even the remote possibility of . The patient verbalized understanding of the risks and wishes to proceed. PLAN EGD and colonoscopy. Thank you for this consult. Please do not hesitate to contact us with further questions. NIMA DAWN MD Voice recognition software utilized LABORER documented in this encounter Nursing Notes * Michelle Oliva RN - 04/10/2019 3:56 PM CST Attempted to call Dr Case s office to obtain any medical history r/t his sinus surgery and whatpossible allergy he might have. The office is closed. I will inform the CN so staff can follow up tomorrow with it. LABORER documented in this encounter OR Notes * Op Note - Nima Dawn MD - 04/14/2019 12:38 PM CST [facility] OpNote EGD/COLON WITH esophageal BIOPSY via cold LARGE forcep and dilation via [id number] balloon, COLONOSCOPY WITH RANDOM LEFT COLON BIOPSY VIA COLD LARGE FORCEP Procedure Note Abimbola Cristo Deandre 04/14/2019 1230 Procedure(s) (LRB): EGD/COLON WITH esophageal BIOPSY via cold LARGE forcep and dilation via [id number] balloon (N/A) COLONOSCOPY WITH RANDOM LEFT COLON BIOPSY VIA COLD LARGE FORCEP (N/A) Surgeon(s): Nima Dawn MD Staff: GI Nurse: Andra Alexandre RN; Jessica Beasley RN; Viv Nails RN licensed electrician: Shannon Oliva; Erum Overton Anesthesia: General Anesthesiologist: Herbie Betancur MD SUPERVISOR SHUTTLE FITTING: Jerome Villegas CRNA Pre-Op Diagnosis: CHRONIC DIARRHEA PHARYNESOPHAGEAL DYSPHAGIA HISTORY OF COLON POLYPS Post-Op Diagnosis: Goyal's esophagus. Random colon biopsies taken. Procedure Description: Informed consent was obtained earlier. Patient was brought to the OR and placed in supine lateral decubitus position and sedated under MAC anesthesia. EGD with biopsy and balloon dilation. GIF 190 gastroscope was lubricated inserted into the hypopharynx advanced by direct technique. Upper middle and distal esophagus was examined. Distal esophagus was tortuous and there was evidence of Goyal's esophagus with mild stricture. Biopsies were taken of the Goyal's. GE junction was identified at 36 cm. Diaphragmatic hiatus at 40. Stomach distended well. Retroflexed views of the cardia fundus angularis revealed no abnormalities. Antrum looked normal. First and second parts of duodenum looked normal. A CRE balloon was then threaded through the scope and centered over the stricture and was dilated up to 54 Montenegr[place] without complication. Colonoscopy with random biopsies. PCF 190 colonoscope was lubricated inserted into the rectum advanced to the cecum. Prep was excellent. Cecum was identified by the ileocecal valve and the appendiceal orifice. Cecum ascending colon transverse colon descending colon sigmoid rectum all carefully visualized Bontril found to be normal. Retroflexion at the anal verge revealed mild hemorrhoids. Random left colon biopsies were taken. Findings: EGD shows Goyal's esophagus and mild stricture. Also a 4 cm hiatal hernia. Random biopsies of Goyal's taken. Stricture dilated to 54 Montenegrin using CRE balloon. Colonoscopy was negative. Random left colon biopsies taken to evaluate the diarrhea. Plan: Check all biopsies. Complications: None Estimated Blood Loss: 0 mL Specimens: Order Name Source Comment Collection Info Order Time PATHOLOGY ESOPHAGUS Barretts Collected By: Nima Dawn MD 04/14/2019 12:29 PM Voice recognition software utilized. NIMA DAWN MD Date: 04/14/2019 Time: 12:39 PM Voice recognition software utilized. LABORER documented in this encounter Plan of Treatment Not on file documented as of this encounter Procedures Procedure Name Priority Date/Time Associated Diagnosis Comments COLONOSCOPY WITH BIOPSY 04/14/2019 11:48 AM MINE LABORER CHRONIC DIARRHEA PHARYNESOPHAGEAL DYSPHAGIA HISTORY OF COLON POLYPS Case Notes SCHEDULED BY FAX 11/13/19 LB EGD WITH BIOPSY 04/14/2019 11:48 AM MINE LABORER CHRONIC DIARRHEA PHARYNESOPHAGEAL DYSPHAGIA HISTORY OF COLON POLYPS Case Notes SCHEDULED BY FAX 03/12/19 LB POCT GLUCOSE - LOZA DOCKED DEVICE Routine 04/14/2019 10:51 AM MINE LABORER EGD Routine 04/14/2019 10:32 AM MINE LABORER COLONOSCOPY Routine 04/14/2019 10:32 AM MINE LABORER PATHOLOGY Routine 04/14/2019 12:00 AM MINE LABORER documented in this encounter Results * POCT glucose (04/14/2019 10:51 AM MINE LABORER) GLUCOSE POC 83 70 - 99 mg/dL 04/14/2019 11:49 AM MINE LABORER [facility] ORDERS INTERFACE 04/14/2019 10:5 1 AM MINE LABORER Nima Dawn MD POCT ORDERABLES - DEVICE Final R esult [facility] ORDERS INTERFACE US * Pathology (04/14/2019 12:00 AM MINE LABORER) COPATH REPORT ? [facility] ? [address] [facility]. ? [place], [place] ??[address] ? [id number] ? Department of Pathology ? Pathology Report ? SURGICAL FINAL REPORT Patient Name: ABIMBOLA FRANCISCO ? : 1940 (Age: 79) ? Location: [facility] Gender: M ?Collected Date: 04/14/2019 Med Rec #: [id number] ?Date Received: 04/14/2019 Date Reported: 04/15/2019 Provider: NIMA DAWN MD Specimen(s) A: Esophageal, biopsy B: Colon Biopsies, Random Final Pathologic Diagnosis A. ESOPHAGUS; BIOPSY: -SQUAMOCOLUMNAR MUCOSA WITH ABUNDANT INTESTINAL METAPLASIA -NEGATIVE FOR DYSPLASIA -NO INCREASED INTRAEPITHELIAL EOSINOPHILS B. COLON, LEFT; RANDOM BIOPSY: -COLONIC MUCOSA WITH MILD HYPERPLASTIC CHANGES -NEGATIVE FOR ACTIVE COLITIS, MICROSCOPIC COLITIS, DYSPLASIA, AND MALIGNANCY Electronically Signed Out ? LAUREL LENNON MD Pathologist IF:[facility] Microscopic Description: Microscopic examination is performed and the findings support the final diagnosis. Clinical History Chronic diarrhea, pharyngo-esophagea l dysphagia, history of colon polyps Gross Description A. ??The specimen is received in a single formalin-filled container labeled with the patient's name (Abimbola Francisco), (1940), and esophageal biopsy. The specimen consists of a 0.5 x 0.4 x 0.2 cm aggregate of multiple pink-white, soft tissue fragments. The specimen is entirely submitted intact as A1. B. ??The specimen is received in a single formalin-filled container labeled with the patient's name (Abimbola Francisco), (1940), and random left biopsy. The specimen consists of a 0.6 x 0.5 x 0.2 cm aggregate of multiple pink-bateman, soft tissue fragments. The specimen is entirely submitted intact as B1. :[facility] Billing Fee Code(s): 56238(2) [facility] Tissue specimen (specimen) ESOPHAGEAL STRUCTURE / Unknown 04/14/2019 12:06 PM MINE LABORER Comment:Barretts Tissue specimen (specimen) COLON STRUCTURE / Unknown 04/14/2019 12:22 PM MINE LABORER Comment:R/o microscopic coli tis Nima Dawn MD PATHOLOGY/CYTOLOGY ORDERABLES Fi nal Result [facility] [address] [place] [address], documented in this encounter Visit Diagnoses Not on filedocumented in this encounter Administered Medications Inactive Administered Medications - up to 3 most recent administrations Medication Order MAR Action Action Date Dose Rate Site lactated ringers infusion at 10 mL/hr, Intravenous, Continuous, Starting on Sun04/14/19 at 1130, Until Sun04/14/19 at 1604, Infuse at TKO rate, Pre-Op New Bag 04/14/2019 11:50 AM MINE LABORER documented in this encounter Active and Recently Administered Medications Times are shown in MINE LABORER. Continuous Medication Order 04/12/2019 04/13/2019 04/14/2019 lactated ringers infusion at 10 mL/hr, Intravenous, Continuous, Starting on Sun04/14/19 at 1130, Until Sun04/14/19 at 1604, Infuse at TKO rate, Pre-Op 1150 (New Bag - Prov ider: Jerome Villegas CRNA)1226 (Infusion Stop Time - Provider: Jerome Villegas CRNA) PRN Medication Order 04/12/2019 04/13/2019 04/14/2019 simethicone (MYLICON) 40 MG/0.6ML suspension (CANCELED) As needed, Starting on Sun04/14/19 at 1219, Until 04/14/19 at 1237, Intra-Op 1219 (Given - Provid er: Nima Dawn MD - Comment: colonoscope flush) documented in this encounter Care Teams Sales Representative Livestock Relationship Specialty Start Date End Date Eliazar Case MD [address] [place] [address] PCP - General INTERNAL MEDICINE 03/07/19 documented as of this encounter
--- OUTSIDE RECORDS SUMMARY | 2024-05-07 20:10 | XMS_ITS | Clinical Summary ---
Author Organization [facility] Address [address] [place] [address]. [place] [address] [place] [address] Care Team Providers Care Optical Goods Worker Name Role Phone Eliazar Case MD Primary Care Provider [phone] Allergies Active Allergy Reactions Criticality Noted Date Comments Amoxicillin-Pot Clavulanate Rash Low 04/14/20 19 Medications atenolol 50 MG tablet Take 50 mg by mouth daily. 3 9 Active lisinopril 10 MG tablet Take 10 mg by mouth daily. 1 9 Active MULTIPLE VITAMINS/MINERAL S OR Active aspirin EC (ASPIRIN EC) 81 MG tablet Take 81 mg by mouth daily. Active Nutritional Supplements (IBS SUPPORT OR) Take 1 capsule by mouth 4 (four) times daily. Active Na sulfate-K sulfate-Mg sulfate (SUPREP BOWEL PREP KIT) 17.5-3.13-1.6 GM/177ML SolutionIndicati ons:Diarrhea, unspecified type Take 177 mLs by mouth every 12 (twelve) hours. Take as directed by instruction sheet. 2 Bottle 9 Active dicyclomine 10 MG capsuleIndicatio ns:Diarrhea, unspecified type Take 1 capsule (10 mg total) by mouth 4 (four) times daily with meals and nightly. 240 capsule 1 9 Active Active Problems No known active problems Encounters Date Type Department Care Team Description 05/03/2024 5:45 PM TRAIL CONSTRUCTION WORKER - 05/03/2024 11:59 PM TRAIL CONSTRUCTION WORKER Hospital Encounter [facility] [place] [address] Ysabel Duran FNP Discharge Disposition: Home or Self Care (Routine Discharge) from Last 3 Months Family History Medical History Relation Comments Parkinson's Disease Maternal Grandfather Parkinson's Disease Maternal Grandmother Cancer Mother Skin Diabetes Mother Parkinson's Disease Paternal Grandfather Parkinson's Disease Paternal Grandmother Relation Status Comments Maternal Grandfather Maternal Grandmother Mother Paternal Grandfather Paternal Grandmother Social History Tobacco Use Types Packs/Day Years [...] Sign Reading Time Taken Comments Blood Pressure 140/82 05/08/2019 3:18 PM TRAIL CONSTRUCTION WORKER Pulse 50 05/08/2019 3:18 PM TRAIL CONSTRUCTION WORKER Temperature 36.9 ??C (98.4 ??F) 05/08/2019 3:18 PM CS T Respiratory Rate 18 05/08/2019 3:18 PM TRAIL CONSTRUCTION WORKER Oxygen Saturation 97% 05/08/2019 3:18 PM TRAIL CONSTRUCTION WORKER Inhaled Oxygen Concentration - - Weight 95.4 kg (210 lb 6.4 oz) 05/08/2019 3:18 P M TRAIL CONSTRUCTION WORKER Height 175.3 cm (5' 9 ) 05/08/2019 3:18 PM TRAIL CONSTRUCTION WORKER Body Mass Index 31.07 05/08/2019 3:18 PM TRAIL CONSTRUCTION WORKER Plan of Treatment Health Maintenance Due Date Last Done Comments DTaP, Tdap and Td Vaccines ( 1 - Tdap) 01/08/1960 Zoster Vaccines (1 of 2) 1991 Annual Medicare Wellness Visit 2006 Pneumococcal Vaccine: 65+ Years (1 of 1 - PCV) 2006 RSV Immunization or 60+ Years (1 - 1-dose 75+ series) 01/08/2016 COVID-19 Vaccine ( - 2023-2 5 season) 2023 Influenza Adult (#1) 2024 01/31/2019, 01/04/2018 Meningococcal Vaccine Aged Out No hailey campbell eligible based on patient's age to complete this topic RSV Immunizations Under 20 Months Aged Out No longer eligible b ased on patient's age to complete this topic Procedures Procedure Name Priority Date/Time Associated Diagnosis Comments PRO-BRAIN NATRIURETIC PEPTIDE Routine 05/03/2024 3:07 PM TRAIL CONSTRUCTION WORKER from Last 3 Months Results * PRO-BRAIN NATRIURETIC PEPTIDE (05/03/2024 3:07 PM TRAIL CONSTRUCTION WORKER) PRO-B TYPE NATRIURETIC PEPTIDE 265 <450 PG/ML 05/03/2024 6:03 PM TRAIL CONSTRUCTION WORKER [facility] Comment: CUT POINTS ESTABLISHED BY INTERNATIONAL COLLAB[employer]ATIVE ON NT PROBNP (ICON) STUDY (2006). AGE INDEPENDENT: <300 PG/ML HAS A 99% NEGATIVE PREDICTIVE VALUE FOR EXCLUDING ACUTE CHF <50 YEARS: >450 PG/ML IS CONSISTENT WITH ACUTE CHF 50-75 YEARS: >900 PG/ML IS CONSISTENT WITH ACUTE CHF >75 YEARS: >1800 PG/ML IS CONSISTENT WITH ACUTE CHF IN PATIENTS WITH RENAL INSUFFICIENCY (GFR <60), >1200 PG/ML YIELDS A DIAGNOSTIC SENSITIVITY AND SPECIFICITY OF 89% AND 72% FOR ACUTE CHF. 05/03/2024 3:07 PM TRAIL CONSTRUCTION WORKER Ysabel Duran [facility] Final Result [facility] [address] [place] [address], [place] [phone] from Last [address] [place] [address] [place] [id number] [facility] Care Teams Optical Goods Worker Relationship Specialty Start Date End Date Eliazar Case MD [address] [place] [address] PCP - General INTERNAL MEDICINE 03/07/19
--- OUTSIDE RECORDS SUMMARY | 2024-05-07 20:10 | XMS_ITS | Clinical Summary ---
Author Organization [facility] Address [address] [address] Phone Care Team Providers Care Predatory Animal Exterminator Name Role Phone Eliazar Case Primary Care Provider Allergies Active Allergy Reactions Criticality Noted Date Comments Amoxicillin Unknown 07/16/2018 Clavulanic Acid Unknown 07/16/2018 Medications aspirin EC 81 MG Tablet Delayed Response Take 81 mg by mouth daily. Active atenolol (TENORMIN) 50 MG Tablet Take 50 mg by mouth daily. 3 05/07/2018 Active lisinopril (PRINIVIL, ZESTRIL) 10 MG Tablet Take 10 mg by mouth daily. 1 05/07/2018 Active Multiple Vitamins-Mineral s (MULTIVITAMIN PO) Take by mouth. Active Encounters Date Type Department Care Team Description 04/07/2024 Telephone [facility] Cardiology [facility] [address] [place] [address] Moi Briggs MD from Last 3 Months Family History Medical History Relation Name Comments Self-Injury Father Stroke Mother Relation Name Status Comments Father Mother Social History Tobacco Use Types Packs/Day Years Used Date Smoking Tobacco: Never Smokeless Tobacco: Never Alcohol Use Standard Drinks/Week Comments Yes 0 (1 standard drink = 0.6 oz pur e alcohol) 1 glass of wine occasionally Sex and Gender Information Value Date Recorded Sex Assigned at Not on file Legal Sex Male 11:42 PM CDT Gender Identity Not on file Sexual Orientation Not on file Plan of Treatment Upcoming Encounters Date Type Department Care Team (Late st Contact Info) Description 06/06/2024 1:00 PM NAILER MACHINE Office Visit [facility] Cardiology [facility] [address] [place] [phone] Moi Briggs MD [address], [facility] [address] [place] [address] 06/13/2024 11:00 AM NAILER MACHINE Office Visit [facility] - [place] [address] [place] [phone] Keshawn Acevedo MD [address] [facility] [address] [place] [address] Health Maintenance Due Date Last Done Comments Hepatitis C Virus (HCV) Screening 1940 Zoster Immunization (1 of 2) 1991 Respiratory Syncytial Virus (RSV) Immunization (Adult) (1 - 1-dose 75+ series) 01/08/2016 Pneumococcal Immunization (50+ years) (2 of 2 - PPSV23) 01/10/2016 01/09/2015 Pneumococcal Immunization Combined Discontinued 01/09/2015 Influenza Immunization Completed 4, 02/23/2023, 01/06/2022, Additional history exists SARS-COV-2 Immunization Completed 01/03/20 24, 02/23/2023, 01/06/2022, Additional history exists DTaP/Tdap/Td Immunization Discontinued 03/31/2024 TdaP Immunization Completed 03/31/2024 Hepatitis B Immunization Aged Out No longer eligible based on patient's age to complete this topic Meningococcal Immunization (ACWY) Aged Out No longer eligible based on patient's age to complete this topic Rotavirus Immunization Aged Out No lo nger eligible based on patient's age to complete this topic Insurance MEDICARE [facility] Care Teams Predatory Animal Exterminator Relationship Specialty Start Date End Date Eliazar Case DO [address] [facility] [address] [place] [address] PCP - General Internal Medicine 05/13/18
--- OUTSIDE RECORDS SUMMARY | 2024-05-07 20:10 | XMS_ITS | Encounter Summary ---
Author Organization [facility] Address [address] [place] [address] Care Team Providers Care French Binding Folder Name Role Phone Eliazar Case DO Primary Care Provider [phone] Encounter Details Date Type Department Care Team (Late Contact Info) Description 07/22/2020 Orders Only [facility] - COVID Vax [address] [place] [address] Darryn Smith MD [address] [facility] [address] [place] [address] Need for vaccination Social History Tobacco Use Types Packs/Day Years Used Date Smoking Tobacco: Never Assessed Sex and Gender Information Value Date Recorded Sex Assigned at Not on file Gender Identity Not on file Sexual Orientation Not on file documented as of this encounter Plan of Treatment Upcoming Encounters Date Type Department Care Team (Late Contact Info) Description 05/21/2024 11:30 AM OUTSIDE SALES Office Visit [facility] - Orthopedics [address] [facility] [place] [phone] Karthik Erwin MD [address] [facility] [place] [address] 06/10/2024 10:40 AM OUTSIDE SALES Office Visit [facility] - Cardiology [address] [facility] [facility] [address] [place] [address] Tiesha Riggs MD [address] [place] [phone] documented as of this encounter Visit Diagnoses Diagnosis Need for vaccination Need for prophylactic vaccination and inoculation against unspecified single disease documented in this encounter Care Teams French Binding Folder Relationship Specialty Start Date End Date Eliazar Case DO [address] [facility] [address] [place] [address] PCP - General Internal Medicine 01/14/20 documented as of this encounter
--- OUTSIDE RECORDS SUMMARY | 2024-05-07 20:10 | XMS_ITS | Encounter Summary ---
Author Organization [facility] Address [address] [place] [address]. [place] [address] [place] [address] Care Team Providers Care Infantry We[employer] Crewmember Name Role Phone Eliazar Case MD Primary Care Provider [phone] Reason for Visit * Auth/Cert Specialty Diagnoses / Procedures Referred By Contac t Referred To Contact Diagnoses CHRONIC DIARRHEA PHARYNESOPHAGEAL DYSPHAGIA HISTORY OF COLON POLYPS Procedures EGD/COLON WITH BIOPSY COLONOSCOPY WITH BIOPSY Referral ID Status Reason Start Date Expiration Date Visits Re quested Visits Authorized [id number] 1 1 Encounter Details Date Type Department Care Team (Late st Contact Info) Description 04/14/2019 11:50 AM 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 SCHOOL 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 Anesthesia Event [facility] [place] [address] Herbie Betancur MD [address] [facility] [id number] [place] [address] [phone] (Work) Anesthesia Record Procedure Summary Procedure Name Responsible Anesthesiologist Anesthesia Start Time Anesthesia Stop Time EGD/COLON WITH esophageal BIOPSY via cold LARGE forcep and dilation via [id number] balloon Herbie Betancur MD 04/14/19 1150 04/14/19 1233 Events Date Time Event Comment 04/14/2019 1122 1122 AN Anesthesia Prepped 1145 AN ALLERGY SPECIALIST Prepped 1150 An Start Patient ID and consent checked and patient reassessed. 1150 An Start Data 1150 Nasal Cannula Applied 1202 Anesthesia Ready 1203 Bite Block Inserted 1203 An Induction 1226 An Emergence 1227 Bite Block Removed 1231 an stop data 1233 Post Anesthetic Care Handoff I completed my handoff to the receiving nurse during which we: 1. Identified the patient 2. Identified the responsible provider 3. Reviewed the pertinent medical history 4. Discussed the surgical course 5. Reviewed intra-op anesthesia management and issues during anesthesia 6. Set expectations for post-procedure period 7. Allowed opportunity for questions and acknowledgement of understanding. 1233 An Stop Meds Name Total lidocaine (PF) (XYLOCAINE) 2% injection 100 mg propofol (DIPRIVAN) 200 mg/20 mL injecti on 350 mg lactated ringers infusion 400 mL * Agents Name O2 N2O Air Ancillary O2 * Blood No blood administrations on file. Lines, Drains, and Airways Type Details Placement Removal Peripheral IV Placement Date: 03/30 10/16; Placement Time: 1051; Placed Outside of This Facility?: No; Size: 20 G; Orientation: Right; Location: Hand; Site Prep: Chlorhexidine; Local Anesthetic: None; Inserted By: rikki bhatia rn ; Insertion attempts: 1; Ultrasound-guided Placement?: No; Patient Tolerance: Tolerated well; Removal Date: 04/14/19; Removal Time: 1248; Removal Reason: Patient Discharged 04/14/19 1051 by Reva Lara RN 04/14/19 1248 by Jessica Beasley RN documented in this encounter Social History Tobacco [...] on file documented as of this encounter OR Notes * Anesthesia Postprocedure Evaluation - Herbie Betancur MD - 04/14/2019 1:32 PM CST Anesthesia Post-op Note Karthik Carrera Procedure(s): EGD/COLON WITH esophageal BIOPSY via cold LARGE forcep and dilationvia [id number] balloon (N/A ) COLONOSCOPY WITH RANDOM LEFT COLON BIOPSY VIA COLD LARGE FORCEP (N/A Colon) Anesthesia type: general Vitals: 04/14/19 1300 BP: (!) 158/89 Vitals: 04/14/19 1300 Pulse: 90 Vitals: 04/14/19 1300 Resp: 17 Vitals: 04/14/19 1242 Temp: 36.3 ??C Vitals: 04/14/19 1300 SpO2: 94% Patient Location: Phase II/Outpatient Level of Consciousness: awake, alert and oriented Pain Management: adequate analgesia Airway Patency: patent Respiratory Status: spontaneous ventilation, nonlabored ventilation and room air Cardiovascular Status: hemodynamically stable Post-Op Nausea: none Postoperative Hydration: euvolemic Complications: no anesthesia complication Comments: No anesthetic related complaints are voiced SCHOOL LIBRARIAN * Anesthesia Postprocedure Evaluation - Herbie Betancur MD - 04/14/2019 1:19 PM CST Anesthesia Post-op Note Karthik Carrera Procedure(s): EGD/COLON WITH esophageal BIOPSY via cold LARGE forcep and dilationvia [id number] balloon (N/A ) COLONOSCOPY WITH RANDOM LEFT COLON BIOPSY VIA COLD LARGE FORCEP (N/A Colon) Anesthesia type: general Vitals: 04/14/19 1300 BP: (!) 158/89 Vitals: 04/14/19 1300 Pulse: 90 Vitals: 04/14/19 1300 Resp: 17 Vitals: 04/14/19 1242 Temp: 36.3 ??C Vitals: 04/14/19 1300 SpO2: 94% Patient Location: Other (Endoscopy Suite) Level of Consciousness: awake, alert and oriented Pain Management: adequate analgesia Airway Patency: patent Respiratory Status: spontaneous ventilation, nonlabored ventilation and room air Cardiovascular Status: hemodynamically stable Post-Op Nausea: none Postoperative Hydration: euvolemic Complications: no anesthesia complication SCHOOL LIBRARIAN * Anesthesia Preprocedure Evaluation - Herbie Betancur MD - 04/14/2019 11:02 AM CST Anesthesia ROS/MED History Reviewed: Patient summary , Family history anesthesia, Anesthesia history , Medications , Unchecked boxes arenot applicable Pre-Anesthetic State: alert, awake and responds appropriately history of anesthetic complications ( heart stopped during sinus surgery , 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 GENERAL COMMENTS Past Surgical History: No date: CHOLECYSTECTOMY 2017: COLONOSCOPY Comment: [facility] 09/17/2014: COLONOSCOPY Comment: Dr. Feng ascending and rectal tubular adenoma polyps removed, random bx with mild colitis with EOS. 06/08/1999: EGD Comment: Dr. Arthur-erosion, esophagitis, and stricture No date: HERNIA REPAIR No date: SINUS SURGERY; Bilateral Past Medical History: No date: Diabetes (CMS/HCC) Comment: pt controls it with food intake No date: Hypertension Physical Evaluation Airway Mallampati: II TM Distance: >3 FB Neck ROM: normal Dental (upper dentures), (missing) Comment: Lower teeth slightly chipped Pulmonary Breath sounds clear to auscultation Cardiovascular Rhythm: regular Rate: normal Other findings: Blood pressure (!) 156/80, pulse 87, temperature 36.9 ??C, temperature source Temporal, resp. rate 12, height 5' 9 (1.753 m), weight 94.8 kg (209 lb), SpO2 97 %. No results for input(s): WBC, RBC, HGB, HCT, PLT, NA, K, CL, CO2, AGAP, BUN, CR, BUNCREATININ, GFRNON, GFR, GLU, CA in the last 72 hours. Anesthesia Plan ASA 3 Intravenous Induction Anesthesia type: general TIVA Nature, alternatives, and risks of plan discussed with patient / guardian including but not limitedto potential corneal abrasion, visual impairment or visual loss, dental injury and damage, esophageal injury, sore throat, awareness, nerve injury secondary to positioning, aspiration, respirtory depr ession, apnea, and respiratory support, hypoxemia, cardiac injury,brain injury, adverse drug reaction, drug allergic reaction, and . Patient expresses understanding that Dr Betancur not liable or responsible for dental damage. All questions answered. Informed Consent Anesthetic plan and risks discussed with patient of whom consent was obtained. . SCHOOL LIBRARIAN documented in this encounter Plan of Treatment Not on file documented as of this encounter Visit Diagnoses Not on filedocumented in this encounter Administered Medications Inactive Administered Medications - up to 3 most recent administrations Medication Order MAR Action Action Date Dose Rate Site lactated ringers infusion at 10 mL/hr, Intravenous, Continuous, Starting on Sun04/14/19 at 1130, Until Sun04/14/19 at 1604, Infuse at TKO rate, Pre-Op New Bag 04/14/2019 11:50 AM H[employer]CHOOL LIBRARIAN lidocaine (PF) (XYLOCAINE) 2 % injection PRN, Starting on Sun04/14/19 at 1203, Until Sun04/14/19 at 1233, Anesthesia Intra-Op Given 04/14/2019 12:03 PM H[employer] LIBRARIAN 100 mg propofol (DIPRIVAN) IV bolus PRN, Starting on Sun04/14/19 at 1203, Until Sun04/14/19 at 1233, Anesthesia Intra-Op Given 04/14/2019 12:23 PM H[employer] SCHOOL LIBRARIAN 20 mg Given 04/14/2019 12:18 PM HIGH SCHOOL LIBRARIAN 30 mg Given 04/14/2019 12:14 PM H[employer] S[employer]OL LIBRARIAN 50 mg documented in this encounter Care Teams Infantry Weapons Crewmember Relationship Specialty Start Date End Date Eliazar Case MD [address] [place] [address] PCP - General INTERNAL MEDICINE 03/07/19 documented as of this encounter
--- OUTSIDE RECORDS SUMMARY | 2024-05-07 20:10 | XMS_ITS | Encounter Summary ---
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 04/07/2024 5:33 AM VESSEL SPECIALIST Sunita García MD LAB - CHEMISTRY ORD ERABLES Performing Organization Address [facility]/ZIP Co de Phone Number [address] [address], [facility] [phone] * MAGNESIUM BLOOD (04/07/2024 5:20 AM VESSEL SPECIALIST) Magnesium 1.7 1.6 - 2.6 mg/dL 04/07/2024 6:02 AM VESSEL SPECIALIST [facility] Blood BLOOD SPECIMEN / Unknown Venipuncture / Unknown 04/07/2024 5:20 AM VESSEL SPECIALIST 04/07/2024 5:33 AM VESSEL SPECIALIST Drake Holliday MD LAB - CHEMISTRY ORD ERABLES [facility] [address] [place] [address], [facility] [phone] * (ABNORMAL) CBC W AUTO DIFFERENTIAL (04/07/2024 5:20 AM [facility]) WBC 7.7 4.0 - 10.7 x10E9/L 04/07/2024 5:42 AM [facility] RBC Count 3.49(L) 4.30 - 5.80 x10E12/L 04/07/2024 5:42 AM [facility] Hemoglobin 11.3(L) 13.3 - 17.5 g/dL 04/07/2024 5:42 AM [facility] Hematocrit 31.3(L) 38.7 - 51.1 % 04/07/2024 5:42 AM [facility] MCV 89.7 80.0 - 98.0 fL 04/07/2024 5:42 AM [facility] MCH 32.4 26.7 - 33.6 pg 04/07/2024 5:42 AM [facility] MCHC 36.1 31.7 - 36.3 g/dL 04/07/2024 5:42 AM [facility] RDW-CV 12.1 11.3 - 14.8 % 04/07/2024 5:42 AM [facility] Platelet Count 171 150 - 420 x10E9/L 04/07/2024 5:42 AM [facility] MPV 9.8 7.8 - 11.4 fL 04/07/2024 5:42 AM [facility] Neutrophil % 64.8 41.0 - 74.0 % 04/07/2024 5:42 AM [facility] Lymphocyte % 17.9 17.0 - 47.0 % 04/07/2024 5:42 AM [facility] Monocyte % 14.8(H) 3.0 - 11.0 % 04/07/2024 5:42 AM [facility] Eosinophil % 1.3 0.0 - 7.0 % 04/07/2024 5:42 AM [facility] Basophil % 0.5 0.0 - 1.6 % 04/07/2024 5:42 AM [facility] Immature Granulocytes % 0.7 0.0 - 1.0 % 04/07/2024 5:42 AM [facility] Neutrophil Absolute 4.96 1.60 - 7.50 x10E9/L 04/07/2024 5:42 AM [facility] Lymphocyte Absolute 1.37 1.00 - 4.40 x10E9/L 04/07/2024 5:42 AM [facility] Monocyte Absolute 1.13(H) 0.15 - 1.00 x10E9/L 04/07/2024 5:42 AM [facility] Eosinophil Absolute 0.10 0.00 - 0.60 x10E9/L 04/07/2024 5:42 AM [facility] Basophil Absolute 0.04 0.00 - 0.13 x10E9/L 04/07/2024 5:42 AM [facility] Blood BLOOD SPECIMEN / Unknown Venipuncture / Unknown 04/07/2024 5:20 AM VESSEL SPECIALIST 04/07/2024 5:32 AM [facility] Drake Holliday MD LAB - HEMATOLOGY OR DERABLES Performing Organization Address [facility]/State/[facility] Co de Phone Number [facility] [address] [place] [phone] [phone] * (ABNORMAL) BASIC METABOLIC PANEL (CALCIUM TOTAL) (04/07/2024 5:20 AM VESSEL SPECIALIST) BUN 16 7 - 26 mg/dL 04/07/2024 6:02 AM [facility] Creatinine 0.98 0.71 - 1.16 mg/dL 04/07/2024 6:02 AM [facility] Sodium 134(L) 136 - 145 mmol/L 04/07/2024 6:02 AM [facility] Potassium 3.6 3.5 - 4.5 mmol/L 04/07/2024 6:02 AM [facility] Chloride 99 98 - 107 mmol/L 04/07/2024 6:02 AM [facility] CO2 26 22 - 29 mmol/L 04/07/2024 6:02 AM [facility] Glucose 134(H) 70 - 99 mg/dL 04/07/2024 6:02 AM [facility] Calcium 8.6 8.4 - 10.2 mg/dL 04/07/2024 6:02 AM [facility] Anion Gap 9 6 - 16 04/07/2024 6:02 AM [facility] BUN/Creatinine Ratio 16 7 - 23 04/07/2024 6:02 AM [facility] Osmolality Calculated 281 275 - 295 mOsm/kg 04/07/2024 6:02 AM [facility] eGFR by CKD-EPI 77(L) >=90 mL/min/1.7 3 m2 04/07/2024 6:02 AM [facility] Blood BLOOD SPECIMEN / Unknown Venipuncture / Unknown 04/07/2024 5:20 AM VESSEL SPECIALIST 04/07/2024 5:33 AM VESSEL SPECIALIST Drake Holliday MD LAB - CHEMISTRY ORD ERABLES [address] [address], [facility] [phone] * PHOSPHORUS BLOOD (04/06/2024 1:42 AM VESSEL SPECIALIST) Phosphorus 3.2 2.8 - 5.1 mg/dL 04/06/2024 2:13 AM [facility] Blood BLOOD SPECIMEN / Unknown Lab Venipuncture / Unknown 04/06/2024 1:42 AM VESSEL SPECIALIST 04/06/2024 1:47 AM VESSEL SPECIALIST Sunita García MD LAB - CHEMISTRY ORD ERABLES [address] [address], [facility] [phone] * MAGNESIUM BLOOD (04/06/2024 1:42 AM VESSEL SPECIALIST) Magnesium 1.8 1.6 - 2.6 mg/dL 04/06/2024 2:13 AM [facility] Blood BLOOD SPECIMEN / Unknown Lab Venipuncture / Unknown 04/06/2024 1:42 AM VESSEL SPECIALIST 04/06/2024 1:47 AM VESSEL SPECIALIST Drake Holliday MD LAB - CHEMISTRY ORD ERABLES [facility] [address] [place] [address], [facility] [phone] * (ABNORMAL) CBC W AUTO DIFFERENTIAL (04/06/2024 1:42 AM VESSEL SPECIALIST) WBC 6.5 4.0 - 10.7 x10E9/L 04/06/2024 1:55 AM [facility] RBC Count 3.41(L) 4.30 - 5.80 x10E12/L 04/06/2024 1:55 AM [facility] Hemoglobin 11.0(L) 13.3 - 17.5 g/dL 04/06/2024 1:55 AM [facility] Hematocrit 30.8(L) 38.7 - 51.1 % 04/06/2024 1:55 AM [facility] MCV 90.3 80.0 - 98.0 fL 04/06/2024 1:55 AM [facility] MCH 32.3 26.7 - 33.6 pg 04/06/2024 1:55 AM [facility] MCHC 35.7 31.7 - 36.3 g/dL 04/06/2024 1:55 AM [facility] RDW-CV 12.4 11.3 - 14.8 % 04/06/2024 1:55 AM [facility] Platelet Count 157 150 - 420 x10E9/L 04/06/2024 1:55 AM [facility] MPV 9.5 7.8 - 11.4 fL 04/06/2024 1:55 AM [facility] Neutrophil % 63.6 41.0 - 74.0 % 04/06/2024 1:55 AM [facility] Lymphocyte % 19.5 17.0 - 47.0 % 04/06/2024 1:55 AM [facility] Monocyte % 14.1(H) 3.0 - 11.0 % 04/06/2024 1:55 AM [facility] Eosinophil % 2.0 0.0 - 7.0 % 04/06/2024 1:55 AM [facility] Basophil % 0.3 0.0 - 1.6 % 04/06/2024 1:55 AM [facility] Immature Granulocytes % 0.5 0.0 - 1.0 % 04/06/2024 1:55 AM [facility] Neutrophil Absolute 4.11 1.60 - 7.50 x10E9/L 04/06/2024 1:55 AM [facility] Lymphocyte Absolute 1.26 1.00 - 4.40 x10E9/L 04/06/2024 1:55 AM [facility] Monocyte Absolute 0.91 0.15 - 1.00 x10E9/L 04/06/2024 1:55 AM [facility] Eosinophil Absolute 0.13 0.00 - 0.60 x10E9/L 04/06/2024 1:55 AM [facility] Basophil Absolute 0.02 0.00 - 0.13 x10E9/L 04/06/2024 1:55 AM [facility] Blood BLOOD SPECIMEN / Unknown Lab Venipuncture / Unknown 04/06/2024 1:42 AM VESSEL SPECIALIST 04/06/2024 1:47 AM [facility] Drake Holliday MD LAB - HEMATOLOGY OR DERABLES Performing Organization Address [facility] Co de Phone Number [address] [phone] [phone] * (ABNORMAL) BASIC METABOLIC PANEL (CALCIUM TOTAL) (04/06/2024 1:42 AM VESSEL SPECIALIST) BUN 16 7 - 26 mg/dL 04/06/2024 2:13 AM [facility] Creatinine 0.89 0.71 - 1.16 mg/dL 04/06/2024 2:13 AM [facility] Sodium 136 136 - 145 mmol/L 04/06/2024 2:13 AM [facility] Potassium 3.8 3.5 - 4.5 mmol/L 04/06/2024 2:13 AM [facility] Chloride 102 98 - 107 mmol/L 04/06/2024 2:13 AM [facility] CO2 27 22 - 29 mmol/L 04/06/2024 2:13 AM [facility] Glucose 124(H) 70 - 99 mg/dL 04/06/2024 2:13 AM [facility] Calcium 8.5 8.4 - 10.2 mg/dL 04/06/2024 2:13 AM [facility] Anion Gap 7 6 - 16 04/06/2024 2:13 AM [facility] BUN/Creatinine Ratio 18 7 - 23 04/06/2024 2:13 AM [facility] Osmolality Calculated 285 275 - 295 mOsm/kg 04/06/2024 2:13 AM [facility] eGFR by CKD-EPI 85(L) >=90 mL/min/1.7 3 m2 04/06/2024 2:13 AM [facility] Blood BLOOD SPECIMEN / Unknown Lab Venipuncture / Unknown 04/06/2024 1:42 AM VESSEL SPECIALIST 04/06/2024 1:47 AM VESSEL SPECIALIST Drake Holliday MD LAB - CHEMISTRY ORD ERABLES [address] [address], [facility] [phone] * (ABNORMAL) PHOSPHORUS BLOOD (04/05/2024 12:32 AM VESSEL SPECIALIST) Phosphorus 2.5(L) 2.8 - 5.1 mg/dL 04/05/2024 1:38 AM [facility] Blood BLOOD SPECIMEN / Unknown Lab Venipuncture / Unknown 04/05/2024 12:32 AM VESSEL SPECIALIST 04/05/2024 1:12 AM VESSEL SPECIALIST Sunita García MD LAB - CHEMISTRY ORD ERABLES [address] [address], [place] [phone] * MAGNESIUM BLOOD (04/05/2024 12:32 AM VESSEL SPECIALIST) Pathologist [facility] Magnesium 1.8 1.6 - 2.6 mg/dL 04/05/2024 1:38 AM [facility] Blood BLOOD SPECIMEN / Unknown Lab Venipuncture / Unknown 04/05/2024 12:32 AM VESSEL SPECIALIST 04/05/2024 1:12 AM VESSEL SPECIALIST Drake Holliday MD LAB - CHEMISTRY ORD ERABLES [facility] [address] [place] [address], [facility] [phone] * (ABNORMAL) CBC W AUTO DIFFERENTIAL (04/05/2024 12:32 AM [facility]) [facility] WBC 6.5 4.0 - 10.7 x10E9/L 04/05/2024 1:17 AM [facility] RBC Count 3.38(L) 4.30 - 5.80 x10E12/L 04/05/2024 1:17 AM [facility] Hemoglobin 10.9(L) 13.3 - 17.5 g/dL 04/05/2024 1:17 AM [facility] Hematocrit 30.6(L) 38.7 - 51.1 % 04/05/2024 1:17 AM [facility] MCV 90.5 80.0 - 98.0 fL 04/05/2024 1:17 AM [facility] MCH 32.2 26.7 - 33.6 pg 04/05/2024 1:17 AM [facility] MCHC 35.6 31.7 - 36.3 g/dL 04/05/2024 1:17 AM [facility] RDW-CV 12.4 11.3 - 14.8 % 04/05/2024 1:17 AM [facility] Platelet Count 161 150 - 420 x10E9/L 04/05/2024 1:17 AM [facility] MPV 10.1 7.8 - 11.4 fL 04/05/2024 1:17 AM [facility] Neutrophil % 68.0 41.0 - 74.0 % 04/05/2024 1:17 AM [facility] Lymphocyte % 16.9(L) 17.0 - 47.0 % 04/05/2024 1:17 AM [facility] Monocyte % 12.3(H) 3.0 - 11.0 % 04/05/2024 1:17 AM [facility] Eosinophil % 1.7 0.0 - 7.0 % 04/05/2024 1:17 AM [facility] Basophil % 0.5 0.0 - 1.6 % 04/05/2024 1:17 AM [facility] Immature Granulocytes % 0.6 0.0 - 1.0 % 04/05/2024 1:17 AM [facility] Neutrophil Absolute 4.43 1.60 - 7.50 x10E9/L 04/05/2024 1:17 AM [facility] Lymphocyte Absolute 1.10 1.00 - 4.40 x10E9/L 04/05/2024 1:17 AM [facility] Monocyte Absolute 0.80 0.15 - 1.00 x10E9/L 04/05/2024 1:17 AM [facility] Eosinophil Absolute 0.11 0.00 - 0.60 x10E9/L 04/05/2024 1:17 AM [facility] Basophil Absolute 0.03 0.00 - 0.13 x10E9/L 04/05/2024 1:17 AM [facility] Blood BLOOD SPECIMEN / Unknown Lab Venipuncture / Unknown 04/05/2024 12:32 AM VESSEL SPECIALIST 04/05/2024 1:12 AM [facility] Drake Holliday MD LAB - HEMATOLOGY OR DERABLES [facility] [address] [place] [address], [facility] [phone] * (ABNORMAL) BASIC METABOLIC PANEL (CALCIUM TOTAL) (04/05/2024 12:32 AM [facility]) BUN 18 7 - 26 mg/dL 04/05/2024 1:38 AM [facility] Creatinine 0.94 0.71 - 1.16 mg/dL 04/05/2024 1:38 AM [facility] Sodium 138 136 - 145 mmol/L 04/05/2024 1:38 AM [facility] Potassium 4.0 3.5 - 4.5 mmol/L 04/05/2024 1:38 AM [facility] Chloride 103 98 - 107 mmol/L 04/05/2024 1:38 AM [facility] CO2 25 22 - 29 mmol/L 04/05/2024 1:38 AM [facility] Glucose 135(H) 70 - 99 mg/dL 04/05/2024 1:38 AM [facility] Calcium 8.3(L) 8.4 - 10.2 mg/dL 04/05/2024 1:38 AM [facility] Anion Gap 10 6 - 16 04/05/2024 1:38 AM [facility] BUN/Creatinine Ratio 19 7 - 23 04/05/2024 1:38 AM [facility] Osmolality Calculated 290 275 - 295 mOsm/kg 04/05/2024 1:38 AM [facility] eGFR by CKD-EPI 80(L) >=90 mL/min/1.7 3 m2 04/05/2024 1:38 AM [facility] Blood BLOOD SPECIMEN / Unknown Lab Venipuncture / Unknown 04/05/2024 12:32 AM VESSEL SPECIALIST 04/05/2024 1:12 AM VESSEL SPECIALIST Drake Holliday MD LAB - CHEMISTRY ORD ERABLES Performing Organization Address [facility]/State/[facility] Co de Phone Number [facility] [address] [place] [address], [facility] [phone] * MAGNESIUM BLOOD (04/04/2024 12:17 AM VESSEL SPECIALIST) Magnesium 1.7 1.6 - 2.6 mg/dL 04/04/2024 2:17 AM [facility] Blood BLOOD SPECIMEN / Unknown Lab Venipuncture / Unknown 04/04/2024 12:17 AM VESSEL SPECIALIST 04/04/2024 1:48 AM VESSEL SPECIALIST Drake Holliday MD LAB - CHEMISTRY ORD ERABLES [facility] [address] [place] [address], [facility] [phone] * (ABNORMAL) CBC W AUTO DIFFERENTIAL (04/04/2024 12:17 AM [facility]) WBC 6.8 4.0 - 10.7 x10E9/L 04/04/2024 1:54 AM [facility] RBC Count 3.27(L) 4.30 - 5.80 x10E12/L 04/04/2024 1:54 AM [facility] Hemoglobin 10.6(L) 13.3 - 17.5 g/dL 04/04/2024 1:54 AM [facility] Hematocrit 29.9(L) 38.7 - 51.1 % 04/04/2024 1:54 AM [facility] MCV 91.4 80.0 - 98.0 fL 04/04/2024 1:54 AM [facility] MCH 32.4 26.7 - 33.6 pg 04/04/2024 1:54 AM [facility] MCHC 35.5 31.7 - 36.3 g/dL 04/04/2024 1:54 AM [facility] RDW-CV 12.6 11.3 - 14.8 % 04/04/2024 1:54 AM [facility] Platelet Count 133(L) 150 - 420 x10E9/L 04/04/2024 1:54 AM [facility] MPV 10.5 7.8 - 11.4 fL 04/04/2024 1:54 AM [facility] Neutrophil % 65.8 41.0 - 74.0 % 04/04/2024 1:54 AM [facility] Lymphocyte % 19.5 17.0 - 47.0 % 04/04/2024 1:54 AM [facility] Monocyte % 12.8(H) 3.0 - 11.0 % 04/04/2024 1:54 AM [facility] Eosinophil % 0.9 0.0 - 7.0 % 04/04/2024 1:54 AM [facility] Basophil % 0.3 0.0 - 1.6 % 04/04/2024 1:54 AM [facility] Immature Granulocytes % 0.7 0.0 - 1.0 % 04/04/2024 1:54 AM [facility] Neutrophil Absolute 4.48 1.60 - 7.50 x10E9/L 04/04/2024 1:54 AM [facility] Lymphocyte Absolute 1.33 1.00 - 4.40 x10E9/L 04/04/2024 1:54 AM [facility] Monocyte Absolute 0.87 0.15 - 1.00 x10E9/L 04/04/2024 1:54 AM [facility] Eosinophil Absolute 0.06 0.00 - 0.60 x10E9/L 04/04/2024 1:54 AM [facility] Basophil Absolute 0.02 0.00 - 0.13 x10E9/L 04/04/2024 1:54 AM [facility] Blood BLOOD SPECIMEN / Unknown Lab Venipuncture / Unknown 04/04/2024 12:17 AM [facility] 04/04/2024 1:48 AM [facility] Drake Holliday MD LAB - HEMATOLOGY OR DERABLES Performing Organization Address [facility]/State/[facility] Co de Phone Number [facility] [address] [place] [phone] [phone] * (ABNORMAL) BASIC METABOLIC PANEL (CALCIUM TOTAL) (04/04/2024 12:17 AM VESSEL SPECIALIST) BUN 26 7 - 26 mg/dL 04/04/2024 2:17 AM [facility] Creatinine 1.17(H) 0.71 - 1.16 mg/dL 04/04/2024 2:17 AM [facility] Sodium 138 136 - 145 mmol/L 04/04/2024 2:17 AM [facility] Potassium 4.0 3.5 - 4.5 mmol/L 04/04/2024 2:17 AM [facility] Chloride 104 98 - 107 mmol/L 04/04/2024 2:17 AM [facility] CO2 25 22 - 29 mmol/L 04/04/2024 2:17 AM [facility] Glucose 129(H) 70 - 99 mg/dL 04/04/2024 2:17 AM [facility] Calcium 8.0(L) 8.4 - 10.2 mg/dL 04/04/2024 2:17 AM [facility] Anion Gap 9 6 - 16 04/04/2024 2:17 AM [facility] BUN/Creatinine Ratio 22 7 - 23 04/04/2024 2:17 AM [facility] Osmolality Calculated 292 275 - 295 mOsm/kg 04/04/2024 2:17 AM [facility] eGFR by CKD-EPI 62(L) >=90 mL/min/1.7 3 m2 04/04/2024 2:17 AM [facility] Blood BLOOD SPECIMEN / Unknown Lab Venipuncture / Unknown 04/04/2024 12:17 AM [facility] 04/04/2024 1:48 AM [facility]ESSEL SPECIALIST Drake Holliday MD LAB - CHEMISTRY ORD ERABLES [address] [address], [facility] [phone] * (ABNORMAL) PHOSPHORUS BLOOD (04/04/2024 12:17 AM VESSEL SPECIALIST) Phosphorus 2.3(L) 2.8 - 5.1 mg/dL 04/04/2024 2:17 AM [facility] Blood BLOOD SPECIMEN / Unknown Lab Venipuncture / Unknown 04/04/2024 12:17 AM VESSEL SPECIALIST 04/04/2024 1:48 AM VESSEL SPECIALIST Tye Mello [employer] LAB - CHEMISTRY ORDERABLES Performing Organization Address City/[facility]/ZIP Co de Phone Number [address] [address], [place] [phone] * (ABNORMAL) B-TYPE NATRIURETIC PEPTIDE (04/03/2024 2:58 PM VESSEL SPECIALIST) BNP 235(H) <100 pg/mL 04/03/2024 4:33 PM [facility] Comment: A decision threshold of 100 [...] Lab Venipuncture / Unknown 04/03/2024 2:58 PM VESSEL SPECIALIST 04/03/2024 3:31 PM VESSEL SPECIALIST Tye Mello [employer] LAB - CHEMISTRY ORDERABLES [facility] [address] [place] [address], [place] [phone] * (ABNORMAL) GLUCOSE - POINT OF CARE (04/03/2024 9:44 AM VESSEL SPECIALIST) Glucose WB/POC 172(H) 70 - 99 mg/dL 04/03/2024 8:00 PM VESSEL SPECIALIST [facility] Specimen Type Cap Fingerstick 2023 8:00 PM VESSEL SPECIALIST [facility] Blood BLOOD SPECIMEN / Unknown 04/03/2024 9:44 AM VESSEL SPECIALIST 04/03/2024 8:00 PM VESSEL SPECIALIST Sunita García MD LAB - POINT OF CARE ORDERABLES Performing Organization Address [facility] Co de Phone Number [facility] [address] [place] [address], [place] [phone] * EKG 12-LEAD (04/03/2024 9:15 AM VESSEL SPECIALIST) Ventricular Rate 149 BPM [facility] QRS Duration ms 132 ms [facility] Q-T Interval ms 296 ms [facility] QTC Calculation (Bezet) 466 ms [facility] Calculated R [place] -15 degrees [facility] Calculated T [place] 157 degrees [facility] Interpretation EKG ATRIAL FIBRILLATION WITH RAPID VENTRICULAR RESPONSE LEFT BUNDLE BRANCH BLOCK ABNORMAL ECG WHEN COMPARED WITH ECG OF 03-APR-2024 09:15, NO SIGNIFICANT CHANGE COMPARED WITH PRIOR EKG Confirmed by PAOLO MARLOW DO ([id number]) on 04/09/2024 1:09:09 PM [facility] M[facility] 04/03/2024 9:15 AM VESSEL SPECIALIST 04/09/2024 1:09 PM VESSEL SPECIALIST Sunita García MD ECG ORDERABLES Performing Organization Address [facility] Co de Phone Number [facility] * EKG 12-LEAD (04/03/2024 9:15 AM VESSEL SPECIALIST) Ventricular Rate 140 BPM [facility] QRS Duration ms 136 ms [facility] Q-T Interval ms 346 ms [facility]USE QTC Calculation (Bezet) 528 ms [facility] M[facility] Calculated R [place] -19 degrees [facility] Calculated T [place] 155 degrees [facility] Interpretation EKG ATRIAL FIBRILLATION WITH RAPID VENTRICULAR RESPONSE LEFT BUNDLE BRANCH BLOCK ABNORMAL ECG NO PREVIOUS ECGS AVAILABLE Confirmed by PAOLO MARLOW DO ([id number]) on 04/09/2024 1:08:59 PM [facility] 04/03/2024 9:15 AM VESSEL SPECIALIST 04/09/2024 1:08 PM VESSEL SPECIALIST Sunita García MD ECG ORDERABLES [facility] * MAGNESIUM BLOOD (04/03/2024 7:51 AM VESSEL SPECIALIST) [facility] Magnesium 1.6 1.6 - 2.6 mg/dL 04/03/2024 8:55 AM [facility] Blood BLOOD SPECIMEN / Unknown Lab Venipuncture / Unknown 04/03/2024 7:51 AM VESSEL SPECIALIST 04/03/2024 8:25 AM VESSEL SPECIALIST Drake Holliday MD LAB - CHEMISTRY ORD ERABLES [address] [address] [phone] * (ABNORMAL) CBC W AUTO DIFFERENTIAL (04/03/2024 7:51 AM VESSEL SPECIALIST) [facility] WBC 7.3 4.0 - 10.7 x10E9/L 04/03/2024 8:32 AM [facility] RBC Count 3.30(L) 4.30 - 5.80 x10E12/L 04/03/2024 8:32 AM [facility] Hemoglobin 10.8(L) 13.3 - 17.5 g/dL 04/03/2024 8:32 AM [facility] Hematocrit 30.2(L) 38.7 - 51.1 % 04/03/2024 8:32 AM [facility] MCV 91.5 80.0 - 98.0 fL 04/03/2024 8:32 AM [facility] MCH 32.7 26.7 - 33.6 pg 04/03/2024 8:32 AM [facility] MCHC 35.8 31.7 - 36.3 g/dL 04/03/2024 8:32 AM [facility] RDW-CV 12.5 11.3 - 14.8 % 04/03/2024 8:32 AM [facility] Platelet Count 110(L) 150 - 420 x10E9/L 04/03/2024 8:32 AM [facility] MPV 10.0 7.8 - 11.4 fL 04/03/2024 8:32 AM [facility] Neutrophil % 71.1 41.0 - 74.0 % 04/03/2024 8:32 AM [facility] Lymphocyte % 15.6(L) 17.0 - 47.0 % 04/03/2024 8:32 AM [facility] Monocyte % 11.4(H) 3.0 - 11.0 % 04/03/2024 8:32 AM [facility] Eosinophil % 1.0 0.0 - 7.0 % 04/03/2024 8:32 AM [facility] Basophil % 0.4 0.0 - 1.6 % 04/03/2024 8:32 AM [facility] Immature Granulocytes % 0.5 0.0 - 1.0 % 04/03/2024 8:32 AM [facility] Neutrophil Absolute 5.18 1.60 - 7.50 x10E9/L 04/03/2024 8:32 AM [facility] Lymphocyte Absolute 1.14 1.00 - 4.40 x10E9/L 04/03/2024 8:32 AM [facility] Monocyte Absolute 0.83 0.15 - 1.00 x10E9/L 04/03/2024 8:32 AM [facility] Eosinophil Absolute 0.07 0.00 - 0.60 x10E9/L 04/03/2024 8:32 AM [facility] Basophil Absolute 0.03 0.00 - 0.13 x10E9/L 04/03/2024 8:32 AM VESSEL SPECIALIST [facility] Blood BLOOD SPECIMEN / Unknown Lab Venipuncture / Unknown 04/03/2024 7:51 AM VESSEL SPECIALIST 04/03/2024 8:24 AM VESSEL SPECIALIST Drake Holliday MD LAB - HEMATOLOGY OR DERABLES [facility] [address] [place] [address], [facility] [phone] * (ABNORMAL) BASIC METABOLIC PANEL (CALCIUM TOTAL) (04/03/2024 7:51 AM VESSEL SPECIALIST) BUN 27(H) 7 - 26 mg/dL 04/03/2024 8:56 AM [facility] Creatinine 1.18(H) 0.71 - 1.16 mg/dL 04/03/2024 8:56 AM [facility] Sodium 136 136 - 145 mmol/L 04/03/2024 8:56 AM [facility] Potassium 3.9 3.5 - 4.5 mmol/L 04/03/2024 8:56 AM [facility] Chloride 104 98 - 107 mmol/L 04/03/2024 8:56 AM [facility] CO2 25 22 - 29 mmol/L 04/03/2024 8:56 AM [facility] Glucose 138(H) 70 - 99 mg/dL 04/03/2024 8:56 AM [facility] Calcium 7.8(L) 8.4 - 10.2 mg/dL 04/03/2024 8:56 AM [facility] Anion Gap 7 6 - 16 04/03/2024 8:56 AM [facility] BUN/Creatinine Ratio 23 7 - 23 04/03/2024 8:56 AM [facility] Osmolality Calculated 289 275 - 295 mOsm/kg 04/03/2024 8:56 AM [facility] eGFR by CKD-EPI 61(L) >=90 mL/min/1.7 3 m2 04/03/2024 8:56 AM [facility] Blood BLOOD SPECIMEN / Unknown Lab Venipuncture / Unknown 04/03/2024 7:51 AM [facility] 04/03/2024 8:25 AM [facility] SPECIALIST Drake Holliday MD LAB - CHEMISTRY ORD ERABLES [address] [address], [place] [phone] * (ABNORMAL) PHOSPHORUS BLOOD (04/03/2024 7:51 AM VESSEL SPECIALIST) Phosphorus 1.9(L) 2.8 - 5.1 mg/dL 04/03/2024 8:56 AM VESSEL SPECIALIST [facility] Blood BLOOD SPECIMEN / Unknown Lab Venipuncture / Unknown 04/03/2024 7:51 AM VESSEL SPECIALIST 04/03/2024 8:25 AM [facility]IST Tye Mello APRN-ANALYST SALES LAB - CHEMISTRY ORDERABLES Performing Organization Address [facility]/ZIP Co de Phone Number [address] [address], [place] [phone] * (ABNORMAL) GLUCOSE - POINT OF CARE (04/02/2024 5:41 AM VESSEL SPECIALIST) Glucose WB/POC 162(H) 70 - 99 mg/dL 04/02/2024 9:47 AM [facility] Specimen Type Cap Fingerstick 2023 9:47 AM [facility] Blood BLOOD SPECIMEN / Unknown 04/02/2024 5:41 AM [facility]IST 04/02/2024 9:47 AM [facility]IST Sunita García MD LAB - POINT OF CARE ORDERABLES [address] [address], [place] [phone] * MAGNESIUM BLOOD (04/02/2024 5:18 AM VESSEL SPECIALIST) Magnesium 1.7 1.6 - 2.6 mg/dL 04/02/2024 5:59 AM [facility] Blood BLOOD SPECIMEN / Unknown Venipuncture / Unknown 04/02/2024 5:18 AM VESSEL SPECIALIST 04/02/2024 5:26 AM VESSEL SPECIALIST Drake Holliday MD LAB - CHEMISTRY ORD ERABLES [facility] [address] [place] [phone], [facility] [phone] * (ABNORMAL) CBC W AUTO DIFFERENTIAL (04/02/2024 5:18 AM VESSEL SPECIALIST) WBC 9.6 4.0 - 10.7 x10E9/L 04/02/2024 5:39 AM [facility] RBC Count 3.63(L) 4.30 - 5.80 x10E12/L 04/02/2024 5:39 AM [facility] Hemoglobin 11.7(L) 13.3 - 17.5 g/dL 04/02/2024 5:39 AM [facility] Hematocrit 33.7(L) 38.7 - 51.1 % 04/02/2024 5:39 AM [facility] MCV 92.8 80.0 - 98.0 fL 04/02/2024 5:39 AM [facility] MCH 32.2 26.7 - 33.6 pg 04/02/2024 5:39 AM [facility] MCHC 34.7 31.7 - 36.3 g/dL 04/02/2024 5:39 AM [facility] RDW-CV 12.9 11.3 - 14.8 % 04/02/2024 5:39 AM [facility] Platelet Count 126(L) 150 - 420 x10E9/L 04/02/2024 5:39 AM [facility] MPV 9.9 7.8 - 11.4 fL 04/02/2024 5:39 AM [facility] Neutrophil % 72.8 41.0 - 74.0 % 04/02/2024 5:39 AM [facility] Lymphocyte % 13.0(L) 17.0 - 47.0 % 04/02/2024 5:39 AM [facility] Monocyte % 13.5(H) 3.0 - 11.0 % 04/02/2024 5:39 AM [facility] Eosinophil % 0.0 0.0 - 7.0 % 04/02/2024 5:39 AM [facility] Basophil % 0.3 0.0 - 1.6 % 04/02/2024 5:39 AM [facility] Immature Granulocytes % 0.4 0.0 - 1.0 % 04/02/2024 5:39 AM [facility] Neutrophil Absolute 6.95 1.60 - 7.50 x10E9/L 04/02/2024 5:39 AM [facility] Lymphocyte Absolute 1.24 1.00 - 4.40 x10E9/L 04/02/2024 5:39 AM [facility] Monocyte Absolute 1.29(H) 0.15 - 1.00 x10E9/L 04/02/2024 5:39 AM [facility] Eosinophil Absolute 0.00 0.00 - 0.60 x10E9/L 04/02/2024 5:39 AM [facility] Basophil Absolute 0.03 0.00 - 0.13 x10E9/L 04/02/2024 5:39 AM [facility] Blood BLOOD SPECIMEN / Unknown Venipuncture / Unknown 04/02/2024 5:18 AM VESSEL SPECIALIST 04/02/2024 5:26 AM [facility] Drake Holliday MD LAB - HEMATOLOGY OR DERABLES Performing Organization Address [facility]/State/[facility] Co de Phone Number [facility] [address] [place] [phone], [facility] [phone] * (ABNORMAL) BASIC METABOLIC PANEL (CALCIUM TOTAL) (04/02/2024 5:18 AM VESSEL SPECIALIST) BUN 31(H) 7 - 26 mg/dL 04/02/2024 6:06 AM [facility] Creatinine 2.05(H) 0.71 - 1.16 mg/dL 04/02/2024 6:06 AM [facility] Sodium 141 136 - 145 mmol/L 04/02/2024 6:06 AM [facility] Potassium 4.4 3.5 - 4.5 mmol/L 04/02/2024 6:06 AM [facility] Chloride 106 98 - 107 mmol/L 04/02/2024 6:06 AM [facility] CO2 24 22 - 29 mmol/L 04/02/2024 6:06 AM [facility] Glucose 146(H) 70 - 99 mg/dL 04/02/2024 6:06 AM [facility] Calcium 8.0(L) 8.4 - 10.2 mg/dL 04/02/2024 6:06 AM [facility] Anion Gap 11 6 - 16 04/02/2024 6:06 AM [facility] BUN/Creatinine Ratio 15 7 - 23 04/02/2024 6:06 AM [facility] Osmolality Calculated 301(H) 275 - 295 mOsm/kg 04/02/2024 6:06 AM [facility] eGFR by CKD-EPI 32(L) >=90 mL/min/1.7 3 m2 04/02/2024 6:06 AM [facility] Blood BLOOD SPECIMEN / Unknown Venipuncture / Unknown 04/02/2024 5:18 AM [facility]SEL SPECIALIST 04/02/2024 5:26 AM [facility]SEL SPECIALIST Drake Holliday MD LAB - CHEMISTRY ORD ERABLES [facility] [address] [place] [address], [facility] [phone] * XR Tibia Fibula Left 2Vw (04/01/2024 5:01 PM VESSEL SPECIALIST) Anatomical Region Laterality Modality Lower Extremity Digital Radiogra phy 04/02/2024 7:15 AM VESSEL SPECIALIST Impressions 04/02/2024 3:46 PM VESSEL SPECIALIST IMPRESSION: Postoperative changes consistent with open reduction and internal fixation of tibial plateau fracture with improved alignment. Hardware appears intact. > Dictated by Berhane Hayes MD, (president trust company). I, Karen Woods MD have personally reviewed and interpreted this examination/study. > Interpreting Provider: Karen Woods MD on 04/02/2024 3:46 PM Narrative 04/02/2024 3:46 PM VESSEL SPECIALIST PROCEDURE: ??XR TIBIA FIBULA LEFT 2VW, DATE/TIME OF EXAM: ??04/01/2024 5:01 PM, LOCATION ??[facility] INDICATION: S82.132A: Closed fracture of medial [...] DATE/TIME OF EXAM: 04/01/2024 5:01 PM, LOCATION [facility] INDICATION: S82.132A: Closed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 SPECIALIST [facility] Comment: The recommendations for 25-Hydroxy Vitamin [...] Unknown Venipuncture / Unknown 03/31/2024 9:18 AM VESSEL SPECIALIST 03/31/2024 9:22 AM VESSEL SPECIALIST Tanvi Rodney PA-C LAB - CHEMIS TRY ORDERABLES Performing Organization Address [facility] Co de Phone Number [facility] [address] [place] [address], [place] [phone] * TYPE + SCREEN PANEL (03/31/2024 9:18 AM VESSEL SPECIALIST) [facility] Antibody Screen NEG 10:15 AM VESSEL SPECIALIST [facility] ABO Rh A POS 03/31/2024 10:15 AM VESSEL SPECIALIST [facility] Blood Bank BLOOD SPECIMEN / Unknown Venipuncture / Unknown 03/31/2024 9:18 AM VESSEL SPECIALIST 03/31/2024 9:28 AM VESSEL SPECIALIST Etelvina Ambrose MD LAB - BLOOD BANK ORD ERABLES Performing Organization Address [facility] Co de Phone Number [facility] [address] [place] [address], [place] [phone] * PT-INR [facility] (03/31/2024 9:18 AM VESSEL SPECIALIST) PT 13.4 12.1 - 14.8 Seconds 03/31/2024 9:51 AM [facility] INR 1.0 See Comment 03/31/2024 9:51 AM [facility] Comment:The suggested therap eutic range for standard coumadin (warfarin) therapy is an INR of 2.0-3.0. For high-risk patients (Mechanical Mitral Valve Prosthesis, etc.), the suggested prophylactic therapeutic range is an INR of 2.5-3.5. Blood BLOOD SPECIMEN / Unknown Venipuncture / Unknown 03/31/2024 9:18 AM VESSEL SPECIALIST 03/31/2024 9:21 AM VESSEL SPECIALIST Etelvina Ambrose MD LAB - COAGULATION OR DERABLES Performing Organization Address City/[facility]/ZIP Co de Phone Number [facility] [address] [place] [address], [facility] [phone] * LIPASE BLOOD (03/31/2024 9:18 AM VESSEL SPECIALIST) [facility] Lipase 9 8 - 78 U/L 03/31/2024 9:54 AM [facility] Blood BLOOD SPECIMEN / Unknown Venipuncture / Unknown 03/31/2024 9:18 AM VESSEL SPECIALIST 03/31/2024 9:22 AM VESSEL SPECIALIST Narrative [facility] - 03/31/2024 9:54 AM VESSEL SPECIALIST Lipase results from the [employer] Alinity analyzer may not be comparable with other methodologies. Etelvina Ambrose MD LAB - CHEMISTRY ORDE RABLES Performing Organization Address City/[facility]/ZIP Co de Phone Number [facility] [address] [place] [address], [facility] [phone] * (ABNORMAL) CBC W AUTO DIFFERENTIAL (03/31/2024 9:18 AM VESSEL SPECIALIST) [facility] WBC 4.3 4.0 - 10.7 x10E9/L 03/31/2024 9:35 AM [facility] RBC Count 4.29(L) 4.30 - 5.80 x10E12/L 03/31/2024 9:35 AM [facility] Hemoglobin 14.0 13.3 - 17.5 g/dL 03/31/2024 9:35 AM [facility] Hematocrit 38.0(L) 38.7 - 51.1 % 03/31/2024 9:35 AM [facility] MCV 88.6 80.0 - 98.0 fL 03/31/2024 9:35 AM [facility] MCH 32.6 26.7 - 33.6 pg 03/31/2024 9:35 AM [facility] MCHC 36.8(H) 31.7 - 36.3 g/dL 03/31/2024 9:35 AM [facility] RDW-CV 12.5 11.3 - 14.8 % 03/31/2024 9:35 AM [facility] Platelet Count 139(L) 150 - 420 x10E9/L 03/31/2024 9:35 AM [facility] MPV 9.7 7.8 - 11.4 fL 03/31/2024 9:35 AM [facility] Neutrophil % 49.7 41.0 - 74.0 % 03/31/2024 9:35 AM [facility] Lymphocyte % 39.7 17.0 - 47.0 % 03/31/2024 9:35 AM [facility] Monocyte % 8.2 3.0 - 11.0 % 03/31/2024 9:35 AM [facility] Eosinophil % 1.2 0.0 - 7.0 % 03/31/2024 9:35 AM [facility] Basophil % 0.7 0.0 - 1.6 % 03/31/2024 9:35 AM [facility] Immature Granulocytes % 0.5 0.0 - 1.0 % 03/31/2024 9:35 AM [facility] Neutrophil Absolute 2.12 1.60 - 7.50 x10E9/L 03/31/2024 9:35 AM [facility] Lymphocyte Absolute 1.69 1.00 - 4.40 x10E9/L 03/31/2024 9:35 AM [facility] Monocyte Absolute 0.35 0.15 - 1.00 x10E9/L 03/31/2024 9:35 AM [facility] Eosinophil Absolute 0.05 0.00 - 0.60 x10E9/L 03/31/2024 9:35 AM [facility] Basophil Absolute 0.03 0.00 - 0.13 x10E9/L 03/31/2024 9:35 AM [facility] Blood BLOOD SPECIMEN / Unknown Venipuncture / Unknown 03/31/2024 9:18 AM VESSEL SPECIALIST 03/31/2024 9:22 AM [facility] Etelvina Ambrose MD LAB - HEMATOLOGY ORD ERABLES [facility] [address] [place] [address], [facility] [phone] * (ABNORMAL) BASIC METABOLIC PANEL (CALCIUM TOTAL) (03/31/2024 9:18 AM [facility]) BUN 22 7 - 26 mg/dL 03/31/2024 9:54 AM [facility] Creatinine 1.01 0.71 - 1.16 mg/dL 03/31/2024 9:54 AM [facility] Sodium 141 136 - 145 mmol/L 03/31/2024 9:54 AM [facility] Potassium 3.9 3.5 - 4.5 mmol/L 03/31/2024 9:54 AM [facility] Chloride 107 98 - 107 mmol/L 03/31/2024 9:54 AM [facility] CO2 24 22 - 29 mmol/L 03/31/2024 9:54 AM [facility] Glucose 138(H) 70 - 99 mg/dL 03/31/2024 9:54 AM [facility] Calcium 8.7 8.4 - 10.2 mg/dL 03/31/2024 9:54 AM [facility] Anion Gap 10 6 - 16 03/31/2024 9:54 AM [facility] BUN/Creatinine Ratio 22 7 - 23 03/31/2024 9:54 AM [facility] Osmolality Calculated 298(H) 275 - 295 mOsm/kg 03/31/2024 9:54 AM [facility] eGFR by CKD-EPI 74(L) >=90 mL/min/1.7 3 m2 03/31/2024 9:54 AM [facility] Blood BLOOD SPECIMEN / Unknown Venipuncture / Unknown 03/31/2024 9:18 AM VESSEL SPECIALIST 03/31/2024 9:22 AM VESSEL SPECIALIST Etelvina Ambrose MD LAB - CHEMISTRY ALDO CASTILLO Performing Organization Address City/[facility]/ZIP Co de Phone Number [facility] [address] [place] [address], [facility] [phone] * ALCOHOL ETHYL BLOOD (03/31/2024 9:18 AM VESSEL SPECIALIST) Ethanol (mg/dL) <10 <10 mg/dL 9:54 AM [facility] Ethanol Calculated (g/dL) <0.010 <=0.010 g/dL 03/31/2024 9:54 AM [facility] Blood BLOOD SPECIMEN / Unknown Venipuncture / Unknown 03/31/2024 9:18 AM VESSEL SPECIALIST 03/31/2024 9:22 AM VESSEL SPECIALIST Narrative [facility] - 03/31/2024 9:54 AM VESSEL SPECIALIST Ethanol Interp <10: None Detected. Depression of PAPER PATTERN FOLDER: >100 mg/dl Potentially Critical: >250 mg/dl Potentially [...] - CHEMISTRY ALDO CASTILLO Performing Organization Address City/[facility]/ZIP Co de Phone Number [facility] [address] [place] [address], [facility] [phone] documented in this encounter Visit Diagnoses Diagnosis [...] without complication, initial encounter Closed fracture of right tibial plateau, initial encounter documented in this encounter Administered Medications Inactive [...] 8 hours. $ Given 04/09/2024 1:56 PM VESSEL SPECIALIST 3 mL $ Given 04/09/2024 5:27 AM VESSEL SPECIALIST 3 mL $ Given 04/08/2024 10:03 PM VESSEL SPECIALIST 3 mL acetaminophen (Tylenol) tablet 1,000 mg [...] oral intake $ Given 04/09/2024 1:56 PM VESSEL SPECIALIST 1,000 mg $ Given 04/09/2024 5:27 AM VESSEL SPECIALIST 1,000 mg $ Given 04/08/2024 10:00 PM VESSEL SPECIALIST 1,000 mg amiodarone (Cordarone) tablet 200 mg 200 mg, Oral, DAILY, First dose on Sun04/04/24 at 1030, Until Discontinued $ Given 04/09/2024 8:45 AM VESSEL SPECIALIST 200 mg $ Given 04/08/2024 8:56 AM VESSEL SPECIALIST 200 mg $ Given 04/07/2024 8:47 AM VESSEL SPECIALIST 200 mg apixaban (Eliquis) tablet 5 mg 5 mg, Oral, 2 TIMES DAILY, First dose on Sun04/03/24 at 2100, Until Discontinued $ Given 04/09/2024 8:45 AM VESSEL SPECIALIST 5 mg $ Given 04/08/2024 10:00 PM VESSEL SPECIALIST 5 mg $ Given 04/08/2024 8:56 AM VESSEL SPECIALIST 5 mg camphor-menthol (Sarna/Dermasarra) lotion Topical, 3 TIMES DAILY PRN, Itching, Starting on Sun04/06/24 at 0959, Until Sun04/09/24 at 2148, Apply to itchy area, like the back $ Given 04/07/2024 8:52 AM VESSEL SPECIALIST $ Given 04/06/2024 4:08 PM VESSEL SPECIALIST $ Given 04/06/2024 10:43 AM VESSEL SPECIALIST dilTIAZem coated beads 24hr (Cardizem CD) capsule 240 mg 240 mg, Oral, DAILY, First dose on Sun04/08/24 at 1500, Until Discontinued, Do not crush or chew. $ Given 04/09/2024 8:45 AM VESSEL SPECIALIST 240 mg $ Given 04/08/2024 2:22 PM VESSEL SPECIALIST 240 mg furosemide (Lasix) tablet 20 mg 20 mg, Oral, DAILY, First dose on Sun04/04/24 at 1245, Until Discontinued $ Given 04/09/2024 8:44 AM VESSEL SPECIALIST 20 mg $ Given 04/08/2024 8:56 AM VESSEL SPECIALIST 20 mg $ Given 04/07/2024 8:47 AM VESSEL SPECIALIST 20 mg lisinopril (Prinivil; Zestril) tablet 40 mg 40 mg, Oral, DAILY, First dose (after last reorder) on Sun04/06/24 at 0900, Until Discontinued $ Given 04/09/2024 8:44 AM VESSEL SPECIALIST 40 mg $ Given 04/08/2024 8:56 AM VESSEL SPECIALIST 40 mg $ Given 04/07/2024 8:47 AM VESSEL SPECIALIST 40 mg oxyCODONE (immediate release) (Roxicodone) tablet 2.5 [...] oral intake $ Given 04/09/2024 5:57 PM VESSEL SPECIALIST 5 mg $ Given 04/09/2024 11:08 AM VESSEL SPECIALIST 5 mg $ Given 04/08/2024 10:02 AM VESSEL SPECIALIST 5 mg polyethylene glycol 3350 (Miralax) packet 17 g 17 g, Oral, DAILY PRN, Constipation, Starting on Sun04/07/24 at 0630, Until Sun04/09/24 at 2148, Mix in 8 ounces of water, juice, soda, coffee or tea prior to administration senna (Senokot) tablet 8.6 mg 8.6 mg, Oral, DAILY, First dose on Sun03/31/24 at 1445, Until Discontinued $ Given 04/07/2024 8:47 AM VESSEL SPECIALIST 8.6 mg $ Given 04/05/2024 8:44 AM VESSEL SPECIALIST 8.6 mg $ Given 04/04/2024 8:11 AM VESSEL SPECIALIST 8.6 mg traZODone (Desyrel) tablet 50 mg 50 mg, Oral, AT BEDTIME PRN, Insomnia, Starting on Sun04/09/24 at 1249, Until Sun04/09/24 at 2148 vitamin D3 (Cholecalciferol) 25 MCG (1000 UNITS) tablet 1,000 Units 1,000 Units, Oral, DAILY, First dose on Sun04/02/24 at 1700, Until Discontinued, 1000 units = 25 mcg $ Given 04/09/2024 8:44 AM VESSEL SPECIALIST 1,000 Unit s $ Given 04/08/2024 8:56 AM VESSEL SPECIALIST 1,000 Units $ Given 04/07/2024 8:47 AM VESSEL SPECIALIST 1,000 Units documented in this encounter Active and Recently Administered Medications Times are shown in VESSEL SPECIALIST. Scheduled Medication Order 04/07/2024 04/08/2024 04/09/2024 0.9% [...] RN) 0527 ($ Given - Provider: Sari Bensno RN)1356 ($ Given - Provider: Gemini Jorgensen [...] ($ Given - Provider: Sari Benson RN) 0856 ($ Given - Provider: Gemini Jorgensen RN)2200 [...] ($ Given - Provider: Gemini Jorgensen, ERIN) magnesium sulfate 2 g in 50 mL bolus (COMPLETED) 2 g, at 25 mL/hr, Administer over 120 Minutes, Intravenous, ONCE, 1 dose, On Sun04/07/24 at 0645, Infuse at 1 gm/hr 0644 ($ New Bag/Syringe - Provider: Marie Abraham, ERIN)0847 (Stopped - Provider: Jakub Camp RN) potassium [...] Camp RN)1217 ($ Given - Provider: Jakub Camp RN)1704 ($ Given - Provider: Jakub Camp RN) 0856 ($ Given - Provider: Gemini Jorgensen RN)1247 ($ Given - Provider: Gemini Jorgensen, ERIN)1709 ($ Given - Provider: Gemini Jorgensen RN) potassium chloride ER (Klor-Con M) tablet 40 mEq (COMPLETED) 40 mEq, Oral, ONCE, 1 dose, On Sun04/08/24 at 0600, Do not crush or chew. 0625 ($ Given - Provider: Sari Benson RN) senna (Senokot) tablet 8.6 mg 8.6 mg, Oral, DAILY, First dose on Sun03/31/24 at 1445, Until Discontinued 0847 ($ Given - Provider: Jakub Camp, ERIN) 0856 (Not Administered - Provider: Gemini Jorgensen RN - Reason: Refused-Patient) 0712 (Not Administered - Provider: Gemini Jorgensen RN - Reason: Refused-Patient) vitamin D3 (Cholecalciferol) 25 MCG (1000 UNITS) tablet 1,000 Units 1,000 Units, Oral, DAILY, First dose on Sun04/02/24 at 1700, Until Discontinued, 1000 units = 25 mcg 0847 ($ Given - Provider: Jakub Camp RN) 0856 ($ Given - Provider: Gemini Jorgensen, RN) 0844 ($ Given - Provider: Gemini [...] from the line or to verify patency. camphor-menthol (Sarna/Dermasarra) lotion Topical, 3 TIMES DAILY [...] RN) 1002 (See Alternative - Provider: Gemini Jorgensen, ERIN) 1108 (See Alternative - Provider: Gemini Jorgensen, ERIN)1757 (See Alternative - Provider: Gemini Jorgensen, ERIN) oxyCODONE (immediate release) (Roxicodone) tablet 5 mg(Linked [...] intake 1419 ($ Given - Provider: Jakub Camp, ERIN) 1002 ($ Given - Provider: Gemini Jorgensen, ERIN) 1108 ($ Given - Provider: Gemini Jorgensen [...] Sun04/09/24 at 1249, Until Sun04/09/24 at 2148 Linked Groups Order Group 1: SALINE LOCK, [...] on Sun03/31/24 at 0846, Until Sun04/09/24 at 214, Flush peripheral IV catheter with 1-10 mL [...] intake documented in this encounter Care Teams Commercial Sewing Instructor Relationship Specialty Start Date End Date Eliazar Case DO [id number] [facility] [address] [address] PCP - General Internal Medicine 01/14/20 documented as of this encounter
--- OUTSIDE RECORDS SUMMARY | 2024-05-07 20:10 | XMS_ITS | Encounter Summary ---
Author Organization [facility] Address [address] [place] [address] Care Team Providers Care Electrical Engineering Technician Name Role Phone Unavailable Primary Care Provider Unavailabl e Reason for Visit * Reason Comments Imm Inj Encounter Details Date Type Department Care Team (Late st Contact Info) Description 01/31/2019 10:40 AM CDT Office Visit [facility] [address] [place] [address] Provider, Fermin Exp Nameoki Need for vaccination (Primary Dx) Social History Tobacco Use Types Packs/Day Years Used Date Smoking Tobacco: Never Assessed Sex and Gender Information Value Date Recorded Sex Assigned at Not on file Gender Identity Not on file Sexual Orientation Not on file documented as of this encounter Progress Notes * Sofiya Jacques APRN-[facility] - 01/31/2019 9:57 AM CDT Patient here for Influenza vaccine today. Allergies reviewed. Vaccine consent signed, reviewed withpatient, and scanned into record. Education materials provided to patient. Patient tolerated well. Sofiya Jacques APRN, PIPE CHANGER- It is flu (prevention) season. 1) Influenza (Flu) Facts: ?? The flu is a contagious respiratory illness caused by influenza viruses. It can cause mild to severe illness, and at times can lead to hospitalizations and . ?? Annual vaccination is important because influenza is unpredictable and flu viruses are constantly changing. Even if you???ve been vaccinated before, the flu vaccine from a previous season may not protect against current flu viruses. ?? Flu vaccines CANNOT cause the flu. The viruses in flu vaccines are either killed (as in the flu shot ) or weakened (the nasal-spray vaccine). The flu vaccines work by priming your body's defensesin case you are exposed to an actual flu virus. ?? Flu vaccines are safe. Serious problems from the flu vaccine are very rare. The most common sideeffect that a person is likely to experience is soreness where the injection was given. This is generally mild and usually goes away after a day or two. 2) Who should get vaccinated this season?: Everyone 6 months and older should get a flu vaccine each year. This recommendation has been in place since June 23, 2009 when CDC???s Advisory Committee on Immunization Practices (ACIP) voted for ???universal?? flu vaccination in the [place] to expand pr otection against the flu to more people. While everyone should get a flu vaccine each flu season, it???s especially important that certain people get vaccinated either because they are at high risk of having serious flu-related complications or because they live with or care for people at high riskfor developing flu- related complications. ??? women ??? Children younger than 5, but especially children younger than 2 years old ??? People 50 years of age and older ??? People of any age with certain chronic medical conditions ??? People who live in nursing homes and other long-term care facilities ??? People who live with or care for those at high risk for complications from flu, including: o Health care workers (physicians, nurses, other workers in hospital and outpatient care settings, and medical emergency response workers) o Household contacts of persons at high risk for complications from the flu Household contacts and out of home caregivers of children less than 6 months of age (these childrenare too young to be vaccinated) documented in this encounter Plan of Treatment Upcoming Encounters Date Type Department Care Team (Late st Contact Info) Description 05/21/2024 11:30 AM ICE CUTTER Office Visit [facility] - Orthopedics [address] [place] [phone] Karthik Erwin MD [address] [place] [address] [place] [address] 06/10/2024 10:40 AM ICE CUTTER Office Visit [facility] - Cardiology [address], [facility] [address] [place] [address] Tiesha Riggs MD [address] [place] [address] documented as of this encounter Visit Diagnoses Diagnosis Need for vaccination- Primary Need for prophylactic vaccination and inoculation against unspecified single disease documented in this encounter
--- OUTSIDE RECORDS SUMMARY | 2024-05-07 20:10 | XMS_ITS | Encounter Summary ---
Author Organization [facility] Address [address] [place] [address] Phone Care Team Providers Care Dance Costume Designer Name Role Phone Eliazar Case Primary Care Provider Encounter Details Date Type Department Care Team (Late Contact Info) Description 04/07/2024 Telephone [facility] - Cardiology - [address] [place] [address] Moi Briggs MD [address] [address] Social History Tobacco Use Types Packs/Day Years [...] on file documented as of this encounter Miscellaneous Notes * Telephone Encounter - Itzel Gonzalez CNA - 04/07/2024 11:47 AM SAP BUSINESS INTELLIGENCE CONSULTANT Patient was unsure about making a hospital follow up. He said he would call back to make an appointment if he feels he needs tp. Patient needing to see Dr. Briggs for A-fib BUSINESS INTELLIGENCE CONSULTANT documented in this encounter Plan of Treatment Upcoming Encounters Date Type Department Care Team (Late Contact Info) Description 06/06/2024 1:00 PM SAP BUSINESS INTELLIGENCE CONSULTANT Office Visit [facility] - Cardiology - [address] [place] [address] Moi Briggs MD [address] [facility] [address] [place] [address] 06/13/2024 11:00 AM SAP BUSINESS INTELLIGENCE CONSULTANT Office Visit [facility] - Cardiology - [address] [place] [address] Keshawn Acevedo MD [address] [facility] [address] [place] [address] documented as of this encounter Visit Diagnoses Not on filedocumented in this encounter Care Teams Dance Costume Designer Relationship Specialty Start Date End Date Eliazar Case DO [address] [place] [address] PCP - General Internal Medicine 05/13/18 documented as of this encounter
--- OUTSIDE RECORDS SUMMARY | 2024-05-07 20:10 | XMS_ITS | Encounter Summary ---
Author Organization [facility] Address [address] [facility] [place] [address] Care Team Providers Care Global Analytics Head Name Role Phone Evie Eliazar Juárez DO Primary Care Provider [phone] Reason for Visit * Reason Onset Date Comments Imm Inj 01/14/2020 Encounter Details Date Type Department Care Team (Late st Contact Info) Description 01/14/2020 10:40 AM CDT Office Visit [facility] [address] [place] [address] Provider, Annalise Exp Nameoki Need for prophylactic vaccination and inoculation against influenza (Primary Dx) Social History Tobacco Use Types Packs/Day Years Used Date Smoking Tobacco: Never Assessed Sex and Gender Information Value Date Recorded Sex Assigned at Not on file Gender Identity Not on file Sexual Orientation Not on file COVID-19 Exposure Response Date Recorded In the last month, have you been in contact with someone who was confirmed or suspected to have Coronavirus / COVID-19? No / Unsure 01/14/2020 10:08 AM CDT documented as of this encounter Progress Notes * Padmini Allen APRN-CNP - 01/14/2020 10:18 AM CDT Flu screening checklist was reviewed with the patient. VIS was given prior to administration. Injection site aseptically cleansed and injection given per Immunization(s) protocol. See Imm/Injections activity for details. documented in this encounter Plan of Treatment Upcoming Encounters Date Type Department Care Team (Late st Contact Info) Description 05/21/2024 11:30 AM TEST DESK SUPERVISOR Office Visit [facility] - Orthopedics [address] [facility], [place] [address] Karthik Erwin MD [address] [facility] [place] [address] 06/10/2024 10:40 AM TEST DESK SUPERVISOR Office Visit [facility] - Cardiology [address] [facility], [address] [place] [phone] Tiesha Riggs MD [address] [place] [phone] documented as of this encounter Visit Diagnoses Diagnosis Need for prophylactic vaccination and inoculation against influenza- Primary documented in this encounter Care Teams Global Analytics Head Relationship Specialty Start Date End Date Eliazar Case DO [address] [facility] [address] [place] [address] PCP - General Internal Medicine 01/14/20 documented as of this encounter
--- OUTSIDE RECORDS SUMMARY | 2024-05-07 20:10 | XMS_ITS | Encounter Summary ---
Author Organization [facility] Address [address] [place] [address]. [place], [place] [address] [place] [address] Care Team Providers Care Rn Case Mgr Name Role Phone Eliazar Case MD Primary Care Provider [phone] Reason for Visit * Reason Comments Colonoscopy/EGD (SCAN) Encounter Details Date Type Department Care Team ([facility] Contact Info) Description 09/17/2014 Scan HEALTH INFO SRVCS Scanned, Documents Colonoscopy/EGD (SCAN) Social History Tobacco Use Types Packs/Day Years Used Date Smoking Tobacco: Never Assessed Sex and Gender Information Value Date Recorded Sex Assigned at Not on file Legal Sex Male 3:03 PM CDT Gender Identity Not on file Sexual Orientation Not on file documented as of this encounter Plan of Treatment Not on file documented as of this encounter Procedures Procedure Name Priority Date/Time Associated Diagnosis Comments COLONOSCOPY/EGD GENERIC (SCA N ORDER) Routine 03/07/2019 documented in this encounter Results * COLONOSCOPY/EGD (03/07/2019) us Documents Scanned SCANNING Edited Result - Final documented in this encounter Visit Diagnoses Not on filedocumented in this encounter Care Teams Rn Case Mgr Relationship Specialty Start Date End Date Eliazar Case MD [address] [place] [address] [place] [address] PCP - General INTERNAL MEDICINE 03/07/19 documented as of this encounter
--- OUTSIDE RECORDS SUMMARY | 2024-05-07 20:10 | XMS_ITS | Encounter Summary ---
Author Organization [facility] Address [address] [facility] [place] [address] Care Team Providers Care Fabric Worker Name Role Phone Eliazar Case DO Primary Care Provider [phone] Encounter Details Date Type Department Care Team (Latest Contact Info) Description 03/31/2024 Travel Social History Tobacco Use Types Packs/Day Years Used Date Smoking Tobacco: Never Assessed Sex and Gender Information Value Date Recorded Sex Assigned at Not on file Gender Identity Not on file Sexual Orientation Not on file documented as of this encounter Plan of Treatment Upcoming Encounters Date Type Department Care Team (Late st Contact Info) Description 05/21/2024 11:30 AM SIGNING AGENT Office Visit [facility] - Orthopedics [address] [facility], [place] [address] Karthik Erwin MD [address] [facility] [place] [address] 06/10/2024 10:40 AM SIGNING AGENT Office Visit [facility] - Cardiology [address] [facility], [address] [place] [address] Tiesha Riggs MD [address] [place] [address] documented as of this encounter Visit Diagnoses Not on filedocumented in this encounter Care Teams Fabric Worker Relationship Specialty Start Date End Date Eliazar Case DO [address] [facility] [address] [place] [address] PCP - General Internal Medicine 01/14/20 documented as of this encounter
--- OUTSIDE RECORDS SUMMARY | 2024-05-07 20:10 | XMS_ITS | Encounter Summary ---
Author Organization [facility] Address [address] [place] [address]. [place], [place] [address] [place] [address] Care Team Providers Care Supervisor Grounds Name Role Phone Eliazar Case MD Primary Care Provider [phone] Encounter Details Date Type Department Care Team (Late st Contact Info) Description 03/07/2019 Orders Only [facility] Medical Group Multispecialty Care - [facility] [address] [facility], [address] [place] [address] Ce Hinson MA Social History Tobacco Use Types Packs/Day Years [...] on filedocumented in this encounter Care Teams Supervisor Grounds Relationship Specialty Start Date End Date Eliazar Case MD [address] [place] [address] [place] [address] PCP - General INTERNAL MEDICINE 03/07/19 documented as of this encounter
--- OUTSIDE RECORDS SUMMARY | 2024-05-07 20:10 | XMS_ITS | Encounter Summary ---
Author Organization [facility] Address [address] [facility] [place] [address] Care Team Providers Care Warehouse Receiving Supervisor Name Role Phone Eliazar Case Primary Care Provider [phone] Encounter Details Date Type Department Care Team (Latest Contact Info) Description 01/14/2020 Travel Social History Tobacco Use Types Packs/Day [...] AM CDT documented as of this encounter Plan of Treatment Upcoming Encounters Date Type Department Care Team (Late st Contact Info) Description 05/21/2024 11:30 AM RING SPINNER Office Visit [facility] - Orthopedics [address] [facility], [place] [address] Karthik Erwin MD [address] [facility] [place] [address] 06/10/2024 10:40 AM RING SPINNER Office Visit [facility] - Cardiology [address] [facility], [place] [address] [place] [address] Tiesha Riggs MD [address] [place] [address] documented as of this encounter Visit Diagnoses Not on filedocumented in this encounter Care Teams Warehouse Receiving Supervisor Relationship Specialty Start Date End Date Eliazar Case DO [address] [facility] [address] [facility] [address] [place] [address] PCP - General Internal Medicine 01/14/20 documented as of this encounter
--- OUTSIDE RECORDS SUMMARY | 2024-05-07 20:10 | XMS_ITS | Encounter Summary ---
Author Organization [facility] Address [address] [place] [address] Care Team Providers Care Cupola Hoist Operator Name Role Phone Eliazar Case Primary Care Provider [phone] Encounter Details Date Type Department Care Team [...] st Contact Info) Description 05/21/2024 11:30 AM RELAY MECHANIC Office Visit [facility] - Orthopedics [address] [facility], [place] [address] Karthik Erwin MD [address] [facility] DIV [place] [address] 06/10/2024 10:40 AM RELAY MECHANIC Office Visit [facility] - Cardiology [address] [facility], [facility] [address] [place] [address] Tiesha Riggs MD [address] [place] [address] documented as of this encounter Visit Diagnoses Not on filedocumented in this encounter Care Teams Cupola Hoist Operator Relationship Specialty Start Date End Date Eliazar Case DO [address] [facility] [address] [facility] 21 [place] [address] PCP - General Internal Medicine 01/14/20 documented as of this encounter
--- OUTSIDE RECORDS SUMMARY | 2024-05-07 20:10 | XMS_ITS | Encounter Summary ---
Author Organization [facility] Address [address] [place] [address]. [place], [place] [address] [place] [address] Care Team Providers Care Seo Strategist Name Role Phone Eliazar Case MD Primary Care Provider [phone] Encounter Details Date Type Department Care Team (Latest Contact Info) Description 03/07/2019 Scan HEALTH INFO SRVCS Scanned, Documents Social History Tobacco Use Types Packs/Day Years [...] on filedocumented in this encounter Care Teams Seo Strategist Relationship Specialty Start Date End Date Eliazar Case MD [address] [place] [address] PCP - General INTERNAL MEDICINE 03/07/19 documented as of this encounter
--- OUTSIDE RECORDS SUMMARY | 2024-05-07 20:10 | XMS_ITS | Encounter Summary ---
Author Organization [facility] Address [address] [place] [address]. [place], [place] [address] [place] [address] Care Team Providers Care Consulting Practice Manager Name Role Phone Eliazar Case MD Primary Care Provider [phone] Encounter Details Date Type Department Care Team (Latest Contact Info) Description 03/07/2019 10:25 AM CASTER HELPER - 03/07/2019 11:59 PM [facility] Hospital Encounter [facility] [place] [address] Magui Medeiros NP [address] [facility]. [address] [id number] Discharge Disposition: Home or Self Care (Routine [...] on file documented as of this encounter Medications at [...] as of this encounter Progress Notes * Magui Medeiros NP - 03/07/2019 11:59 PM CST Called patient and informed him of the results of negative stool cultures and did not run the C. difficile test due to stool consistency. I did inform him that he had a positive fecal white blood cell count elevation. This is most likely due to some inflammatory process within the colon but is not a specific indicator of one particular condition. Patient is agreeable to continuing with colonoscopy for further evaluation. He does note that he is currently been on dicyclomine up to 3 times a day and has been having some soft formed stool consistently. He does note he has a little stuttering that he is noted since being on this medication. Reviewed over signs and symptoms to include nervousness and psychosis with patient. I did inform him that if the symptoms worsen he could consider decreasing the dose or stopping the medication. He does recall a history in his past of stuttering but has not had it for some time. Patient will call for any further update on his bowel condition. ER HELPER documented in this encounter Plan of Treatment Not on file documented as of this encounter Procedures Procedure Name Priority Date/Time Associated Diagnosis Comments STOOL FOR WBC Routine 03/07/2019 11:14 AM CASTER HELPER Diarrhea, unspecified type CLOSTRIDIUM DIFFICILE Routine 03/07/2019 11:14 AM CASTER HELPER Diarrhea, unspecified type CULTURE STOOL Routine 03/07/2019 11:14 AM CASTER HELPER Diarrhea, unspecified type documented in this encounter Results * (ABNORMAL) STOOL FOR WBC (03/07/2019 11:14 AM CASTER HELPER) STOOL WBC LACTOFERRIN POSITIVE( A) NEGATIVE 03/07/2019 12:44 PM [facility] STOOL SPECIMEN / Unknown 03/07/2019 11:14 AM CASTER HELPER Magui Mala PEDIATRIC DENTAL HYGIENIST BODY FLUIDS AND STOOLS ORDERABLE S Final Result Performing Organization Address [facility] Co de Phone Number [facility] [address] [place] [address], [place] [phone] * (ABNORMAL) CLOSTRIDIUM DIFFICILE (03/07/2019 11:14 AM CASTER HELPER) Pathologist [facility] MOLECULAR ASSAY UNACCEPTABLE SPECIMEN RECEIVED FOR TESTING. ??ONLY LIQUID STOOLS ARE ACCEPTABLE UNLESS ILEUS IS PRESENT. (A) NEGATIVE 03/07/2019 12:40 PM [facility] Comment: Successful Call: [phone] called 03/07/2019 12:42 PM to [facility] ([id number]/NOT,CALLED) by [id number]. Read Back: No, ??NOT CALLED STOOL SPECIMEN / Unknown 03/07/2019 11:14 AM CASTER HELPER Magui Medeiros PEDIATRIC DENTAL HYGIENIST BODY FLUIDS AND STOOLS ORDERABLE S Final Result Performing Organization Address [facility] Co de Phone Number [facility] [address] [place] [address], [place] [phone] * Stool Culture (03/07/2019 11:14 AM CASTER HELPER) Pathologist [facility] SPEC DESCRIPTION STOOL 03/07/2019 11:15 AM [facility] SPECIAL REQUESTS NO SPECIAL REQUEST 03/07/2019 11:15 AM [facility] CULTURE RESULT NEGATIVE FOR SHIGA TOXIN 1 AND 2 03/10/2019 7:17 AM [facility] CULTURE RESULT NO ENTERIC PATHOGENS ISOLATED 03/10/2019 7:17 AM CASTER HELPER [facility] CULTURE RESULT NOTE: STOOL CULTURES ARE ROUTINELY SCREENED FOR SALMONELLA,SH IGELLA,YERSIN IA,AEROMONAS, PLESIOMONAS,C AMPYLOBA CTER,E.COLI 0157,OVERGROW THS OF S.AUREUS,YEAS T AND P. AERUGINOSA 03/10/2019 7:17 AM CASTER HELPER [facility] Stool specimen (specimen) STOOL SPECIMEN / Unknown 03/07/2019 11:14 AM CASTER HELPER 03/07/2019 11:37 AM CASTER HELPER Magui Medeiros NP MICROBIOLOGY - GENERAL ORDERABLE S Final Result [facility] [address] [place] [address], documented in this encounter Visit Diagnoses Diagnosis Diarrhea, unspecified type documented in this encounter Care Teams Consulting Practice Manager Relationship Specialty Start Date End Date Eliazar Case MD [address] [place] [address] [place] [address] PCP - General INTERNAL MEDICINE 03/07/19 documented as of this encounter
--- OUTSIDE RECORDS SUMMARY | 2024-05-07 20:10 | XMS_ITS | Encounter Summary ---
Author Organization [facility] Address [address] [place] [address]. [place], [place] [id number] [place] [id number] Care Team Providers Care Airfield Operations Specialist Name Role Phone Eliazar Case MD Primary Care Provider [phone] Reason for Visit * Reason Comments Follow Up results from colonos copy * Consultation/Treatment (Routine) - Closed Specialty Diagnoses / Procedures Referred By Matthew t Referred To Contact GASTROENTEROLOGY Diagnoses f/u from colonoscopy done 04-14-19 Procedures FOLLOW UP Nima Dawn MD [address] [place] [address] [place] [id number] Phone: tel: fax: Nima Dawn MD [facility] [address] [place] [address] Phone: tel: fax: Referral ID Status Reason Start Date Expiration Date Visits Re quested Visits Authorized [id number] Closed 05/08/2019 05/08/2020 100 100 Encounter Details Date Type Department Care Team (Latest Contact Info) Description 05/08/2019 3:00 PM ENGINEER [employer]ER Office Visit [facility] - [facility] [address] [facility] [place] [address] Nima Dawn MD [address] [place] [address] [address] [place], [place] [id number] Follow Up (results from colonoscopy) Social History Tobacco Use Types Packs/Day Years [...] Comments Blood Pressure 140/82 05/08/2019 3:18 PM ENGINE[employer]ER Pulse 50 05/08/2019 3:18 PM ENGINE[employer]USTER Temperature 36.9 ??C (98.4 ??F) 05/08/2019 3:18 PM CS T Respiratory Rate 18 05/08/2019 3:18 PM ENGINE[employer]ER Oxygen Saturation 97% 05/08/2019 3:18 PM ENGINE[employer]ER Inhaled Oxygen Concentration - - Weight 95.4 kg (210 lb 6.4 oz) 05/08/2019 3:18 P M [employer] Height 175.3 cm (5' 9 ) 05/08/2019 3:18 PM ENGINE[employer]ER Body Mass Index 31.07 05/08/2019 3:18 PM ENGINE[employer]ER documented in this encounter Progress Notes * Nima Dawn MD - 05/08/2019 3:00 PM CST Images from the original note were not included. 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 He has some IBS symptoms. He has been taking IBS medication and fiber daily but complains of some mushy stools. Otherwise no other complaints. Medications: Current Outpatient Medications: ??? aspirin EC (ASPIRIN EC) 81 MG tablet, Take 81 mg by mouth daily., Disp: , Rfl: ??? atenolol 50 MG tablet, Take 50 mg by mouth daily., Disp: , Rfl: 3 ??? dicyclomine 10 MG capsule, Take 1 capsule (10 mg total) by mouth 4 (four) times daily with meals and nightly., Disp: 240 capsule, Rfl: 1 ??? lisinopril 10 MG tablet, Take 10 mg by mouth daily., Disp: , Rfl: 1 ??? MULTIPLE VITAMINS/MINERALS OR, , Disp: , Rfl: ??? Nutritional Supplements (IBS SUPPORT OR), Take 1 capsule by mouth 4 (four) times daily., Disp: , Rfl: ??? Na sulfate-K sulfate-Mg sulfate (SUPREP BOWEL PREP KIT) 17.5-3.13-1.6 GM/177ML Solution, Take 177 mLs by mouth every 12 (twelve) hours. Take as directed by instruction sheet., Disp: 2 Bottle, Rfl: 0 Allergies: Allergies Allergen Reactions ??? Augmentin [Amoxicillin-Pot Clavulanate] Rash Medical History: Past Medical History: Diagnosis Date ??? Diabetes (CMS/HCC) pt controls it with food intake ??? Hypertension Surgical History: Past Surgical History: Procedure Laterality Date ??? CHOLECYSTECTOMY ??? COLONOSCOPY [address] [place] [address] ??? COLONOSCOPY 09/17/2014 Dr. Feng ascending and rectal tubular adenoma polyps removed, random bx with mild colitis with EOS. ??? COLONOSCOPY N/A 04/14/2019 COLONOSCOPY WITH RANDOM LEFT COLON BIOPSY VIA COLD LARGE FORCEP performed [facility] Dawn [facility] [place] [facility] ??? EGD 06/08/1999 Dr. Arthur-erosion, esophagitis, and stricture ??? HERNIA REPAIR ??? SINUS SURGERY Bilateral PE: Filed Vitals: 05/08/19 1518 BP: 140/82 Pulse: 50 Resp: 18 Temp: 98.4 ??F (36.9 ??C) SpO2: 97% Weight: 95.4 kg (210 lb 6.4 oz) Height: 5' 9 (1.753 m) General: In NAD, pleasant and appropriate Neuro: A&Ox3 Labs: Labs Reviewed @LAB@ Diagnoses/Impression: Goyal's esophagus. Goyal's has no dysplasia in it. Continue PPI medication. IBS. Recommendations and Plan: Recommend daily fiber and water and continue to take the IBS medications. Risks/Benefits/Options: Patient presented with risks (can include but are not limited to: discomfort, missing lesions, allergic or adverse reaction to the sedation, perforation of the bowel which may require hospitaliztion and surgery, bleeding, infection, aspiration), benefits, and alternatives to the procedure(s) and they are in agreement to proceed as planned. NIMA DAWN MD 05/08/2019 Voice recognition software utilized [employer]UST[employer] documented in this encounter Plan of Treatment Not on file documented as of this encounter Visit Diagnoses Diagnosis Goyal's esophagus without dysplasia- Primary Goyal's esophagus documented in this encounter Care Teams Airfield Operations Specialist Relationship Specialty Start Date End Date Eliazar Case MD [address] [place] [address] [place] [address] PCP - General INTERNAL MEDICINE 03/07/19 documented as of this encounter
--- OUTSIDE RECORDS SUMMARY | 2024-05-07 20:10 | XMS_ITS | Encounter Summary ---
Author Organization [facility] Address [address] [place] [address]. [place], [place] [id number] [place] [id number] Care Team Providers Care Auto Mechanic Apprentice Name Role Phone Angeles Case MD Primary Care Provider [phone] Reason for Visit * Reason Comments Diarrhea loose stools with bu bbles has had this since last colonoscopy (2yrs ago) * Consultation/Treatment (Routine) - Closed Specialty Diagnoses / Procedures Referred By Matthew soler Referred To Contact GASTROENTEROLOGY Diagnoses Abdominal pain, loose stool Angeles Case MD [address] [place] [address] Phone: tel: fax: [facility] - [address], [address] [place] [address] Phone: tel: fax: Referral ID Status Reason Start Date Expiration Date Visits Re quested Visits Authorized [id number] Closed 12/31/2018 01/01/2020 1 1 Encounter Details Date Type Department Care Team (Latest Contact Info) Description 03/07/2019 9:20 AM SPEECH THERAPIST TECHNICIAN Office Visit [facility] - [address], [address] [place] [address] Magui Medeiros NP [address] [facility]. [address] [place] [address] Diarrhea (loose stools with bubbles has had this since last colonoscopy (2yrs ago)) Social History Tobacco Use Types Packs/Day Years [...] Sign Reading Time Taken Comments Blood Pressure 132/82 03/07/2019 8:58 AM SPEECH THERAPIST TECHNICIAN Pulse 86 03/07/2019 8:58 AM SPEECH THERAPIST TECHNICIAN Temperature 37 ??C (98.6 ??F) 03/07/2019 8:58 AM SPEECH THERAPIST TECHNICIAN Respiratory Rate 18 03/07/2019 8:58 AM SPEECH THERAPIST TECHNICIAN Oxygen Saturation - - Inhaled Oxygen Concentration - - Weight 94.8 kg (209 lb) 03/07/2019 8:58 AM SPEECH THERAPIST TECHNICIAN Height 175.3 cm (5' 9 ) 03/07/2019 8:58 AM SPEECH THERAPIST TECHNICIAN Body Mass Index 30.86 03/07/2019 8:58 AM SPEECH THERAPIST TECHNICIAN documented in this encounter Patient Instructions * Patient Instructions* Magui Medeiros NP - 03/07/2019 9:20 AM SPEECH THERAPIST TECHNICIAN Patient Education Patient Education Dicyclomine (dye SEMAJ wan) Brand Names: US Bentyl Brand Names: Rafita Bentylol [DSC]; JAMP-Dicyclomine HCl; Protylol; ASHLEY-Dicyclomine What is this drug used for? ?? It is used to treat GI (gastrointestinal) spasms. ?? It is used to treat irritable bowel syndrome. What do I need to tell my doctor BEFORE I take this drug? For all patients taking this drug: ?? If you have an allergy to dicyclomine or any other part of this drug. ?? If you are allergic to any drugs like this one, any other drugs, foods, or other substances. Tell your doctor about the allergy and what signs you had, like rash; hives; itching; shortness of breath; wheezing; cough; swelling of face, lips, tongue, or throat; or any other signs. ?? If you have any of these health problems: Bowel block, heart problems due to bleeding, glaucoma,myasthenia gravis, reflux esophagitis, slow moving GI (gastrointestinal tract), trouble passing urine, or very bad ulcerative colitis. ?? If you are breast-feeding. Do not breast-feed while you take this drug. Children: ?? If your child is younger than 6 months of age. Do not give this drug to an younger than 6months of age. This is not a list of all drugs or health problems that interact with this drug. Tell your doctor and pharmacist about all of your drugs (prescription or OTC, natural products, vitamins) and health problems. You must check to make sure that it is safe for you to take this drug with all of your drugs and health problems. Do not start, stop, or change the dose of any drug withoutchecking with your doctor. What are some things I need to know or do while I take this drug? All products: ?? Tell all of your health care providers that you take this drug. This includes your doctors, nurses, pharmacists, and dentists. ?? Avoid driving and doing other tasks or actions that call for you to be alert or have clear eyesight until you see how this drug affects you. ?? Talk with your doctor before you drink alcohol or use other drugs and natural products that slowyour actions. ?? Bright lights may bother you. Wear sunglasses. ?? Be careful in hot weather or while being active. Drink lots of fluids to stop fluid loss. ?? Drink lots of noncaffeine liquids unless told to drink less liquid by your doctor. ?? If you are 65 or older, use this drug with care. You could have more side effects. ?? Tell your doctor if you are or plan on getting . You will need to talk about the benefits and risks of using this drug while you are . All oral products: ?? Do not take antacids at the same time as this drug. Talk with your doctor. What are some side effects that I need to call my doctor about right away? WARNING/CAUTION: Even though it may be rare, some people may have very bad and sometimes deadly side effects when taking a drug. Tell your doctor or get medical help right away if you have any of thefollowing signs or symptoms that may be related to a very bad side effect: ?? Signs of an allergic reaction, like rash; hives; itching; red, swollen, blistered, or peeling skin with or without fever; wheezing; tightness in the chest or throat; trouble breathing, swallowing,or talking; unusual hoarseness; or swelling of the mouth, face, lips, tongue, or throat. ?? Fever. ?? Not sweating during activities or in warm temperatures. ?? Very bad dizziness or passing out. ?? Feeling confused. ?? Trouble swallowing or speaking. ?? Change in balance. ?? Change in eyesight. ?? Larger pupils. ?? If bright lights bother your eyes. ?? Trouble passing urine. ?? Diarrhea. ?? Fast, slow, or abnormal heartbeat. ?? Hallucinations (seeing or hearing things that are not there). ?? Memory problems or loss. ?? Mood changes. What are some other side effects of this drug? All drugs may cause side effects. However, many people have no side effects or only have minor sideeffects. Call your doctor or get medical help if any of these side effects or any other side effects bother you or do not go away: ?? Feeling dizzy, sleepy, tired, or weak. ?? Blurred eyesight. ?? Upset stomach. ?? Feeling nervous and excitable. ?? Dry mouth. ?? More thirst. ?? Dry skin. ?? Flushing. ?? Trouble sleeping. ?? Constipation. These are not all of the side effects that may occur. If you have questions about side effects, call your doctor. Call your doctor for medical advice about side effects. You may report side effects to your national health agency. How is this drug best taken? Use this drug as ordered by your doctor. Read all information given to you. Follow all instructionsclosely. All oral products: ?? Take with or without food. Liquid: ?? Measure liquid doses carefully. Use the measuring device that comes with this drug. If there is none, ask the pharmacist for a device to measure this drug. Injection: ?? It is given as a shot into a muscle. What do I do if I miss a dose? All oral products: ?? Take a missed dose as soon as you think about it. ?? If it is close to the time for your next dose, skip the missed dose and go back to your normal time. ?? Do not take 2 doses at the same time or extra doses. Injection: ?? Call your doctor to find out what to do. How do I store and/or throw out this drug? All oral products: ?? Store at room temperature. ?? Store in a dry place. Do not store in a bathroom. Injection: ?? If you need to store this drug at home, talk with your doctor, nurse, or pharmacist about how tostore it. All products: ?? Keep all drugs in a safe place. Keep all drugs out of the reach of children and pets. ?? Throw away unused or drugs. Do not flush down a toilet or pour down a drain unless you are told to do so. Check with your pharmacist if you have questions about the best way to throw out drugs. There may be drug take-back programs in your area. General drug facts ?? If your symptoms or health problems do not get better or if they become worse, call your doctor. ?? Do not share your drugs with others and do not take anyone else's drugs. ?? Keep a list of all your drugs (prescription, natural products, vitamins, OTC) with you. Give this list to your doctor. ?? Talk with the doctor before starting any new drug, including prescription or OTC, natural products, or vitamins. ?? Some drugs may have another patient information leaflet. If you have any questions about this drug, please talk with your doctor, nurse, pharmacist, or other health care provider. ?? If you think there has been an overdose, call your poison control center or get medical care right away. Be ready to tell or show what was taken, how much, and when it happened. Consumer Information Use and Disclaimer This information should not be used to decide whether or not to take this medicine or any other medicine. Only the healthcare provider has the knowledge and training to decide which medicines are right for a specific patient. This information does not endorse any medicine as safe, effective, or approved for treating any patient or health condition. This is only a brief summary of general information about this medicine. It does NOT include all information about the possible uses, directions, warnings, precautions, interactions, adverse effects, or risks that may apply to this medicine. This information is not specific medical advice and does not replace information you receive from the healthcare provider. You must talk with the healthcare provider for complete information about the risksand benefits of using this medicine. Last Reviewed Date 2019-01-06 Copyright ?? 2019 [employer]. and its affiliates and/or licensors. All rights reserved. CH THERAPIST TECHNICIAN CH THERAPIST TECHNICIAN documented in this encounter Progress Notes * Magui Medeiros NP - 03/07/2019 9:20 AM CST Images from the original note were not included. Gastroenterology Initial Visit Reason for Visit: Diarrhea (loose stools with bubbles has had this since last colonoscopy (2yrs ago)) History of Present Illness: Karthik Carrera is a 79-year-old male being seen in clinic for referral by ANGELES CASE MD for loose stools and abdominal pain. Patient denies he has abdominal pain. He has had loose stools for about6-8 years but most recently notes that the stools have become more water like 6 out of the 7 days aweek and then has the occasional mushy stool. Notes he takes 8 tabs of IB Support for x 3 mos which produces the occassional reddish color in stools if they are mushy. Patient had gallbladder removed several years ago and did have a transitioning period of loose stools but did resolve itself noted he had a colon tumor and polyps with Dr. Feng in 2017 and believes the tumor was removed completely. Requested records from Dr. Lobo and [facility]. No constipation or diarrhea, no melena. No weight loss and weight has remained stable. Patient doesquestion about pancreatic insufficiency due to the loose stools he does note that his watery stoolshave a very foul odor to them. He denies any contaminated water or food or foreign travel. No nausea, no vomiting, + dysphagia with liquid and solid at throat level portion dependent carbonated beverage this is been going on for years he did have a history of a dilation approximately 15 years ago for the same problem., - abdominal pain,- heart burn or acid reflux. Appropriate appetite. Prior abdominal surgeries: Cholecystectomy 1977, Umbilical hernia repair 1999. EGD with dilation 15yrs. Last colonoscopy 2017 polyps and tumor removal per patient at [facility]. No prior h/o hepatitis, no prior tattoos, no prior blood transfusions, no drug use, 1 glass of wine/3 mos ETOH use, and no smoking. No family history of GI/Colon Cancer. Grandmother has something in stomach lived to her 90s. NSAID/Blood thinner use: Ibuprofen rare use. ROS: Review of Systems Constitutional: Negative for chills, fever and malaise/fatigue. Negative for decreased appetite HENT: Negative for hearing loss, nosebleeds, sore throat and tinnitus. Full denture on top Eyes: Glasses Respiratory: Negative for shortness of breath. TUTU with cpap use Cardiovascular: Negative for chest pain and leg swelling. Gastrointestinal: Refer to HPI. Musculoskeletal: Negative for joint pain (feet arthritis). Neurological: Negative for dizziness, seizures and headaches. Endo/Heme/Allergies: Does not bruise/bleed easily. Psychiatric/Behavioral: Negative for depression and suicidal ideas. The patient is not nervous/anxious and does not have insomnia. Medications: Current Outpatient Medications: ??? aspirin EC [...] VITAMINS/MINERALS OR, , Disp: , Rfl: ??? Na sulfate-K sulfate-Mg sulfate (SUPREP BOWEL PREP KIT) 17.5-3.13-1.6 GM/177ML Solution, Take 177 mLs by mouth every 12 (twelve) hours. Take as directed by instruction sheet., Disp: 2 Bottle, Rfl: 0 ??? Nutritional Supplements (IBS SUPPORT OR), Take 1 capsule by mouth 4 (four) times daily., Disp: , Rfl: Allergies: Allergies Allergen Reactions ??? Clavulanic Acid Unknown Medical History: Past Medical History: Diagnosis Date ??? Diabetes (CMS/HCC) pt controls it with food intake ??? Hypertension Surgical History: Past Surgical History: Procedure Laterality Date ??? CHOLECYSTECTOMY ??? COLONOSCOPY 2017 [facility] ??? HERNIA REPAIR Social History: Social History Tobacco Use ??? Smoking status: Never Smoker ??? Smokeless tobacco: Never Used Substance Use Topics ??? Alcohol use: Yes Comment: rare ??? Drug use: No Family History: Family History Problem Relation Name Age of Onset ??? Diabetes Mother ??? Cancer Mother Skin ??? Parkinson's Disease Maternal Grandmother ??? Parkinson's Disease Maternal Grandfather ??? Parkinson's Disease Paternal Grandmother ??? Parkinson's Disease Paternal Grandfather PE: Filed Vitals: 03/07/19 0858 BP: 132/82 Pulse: 86 Resp: 18 Temp: 98.6 ??F (37 ??C) TempSrc: Oral Weight: 94.8 kg (209 lb) Height: 5' 9 (1.753 m) Physical Exam Constitutional: He is oriented to person, place, and time. He appears well- developed and well-nourished. HENT: Mouth/Throat: Oropharynx is clear and moist. Cardiovascular: Normal rate and regular rhythm. Pulmonary/Chest: Effort normal and breath sounds normal. Abdominal: Soft. Bowel sounds are normal. He exhibits no mass. There is no tenderness. There is no guarding. No hernia. Abdomen is large and protuberant semi-firm to palpate. Patient denies any discomfort. Unable to appreciate for organomegaly due to size of abdomen. No obvious pulsatile masses palpated or auscultated. Musculoskeletal: He exhibits no edema. Neurological: He is alert and oriented to person, place, and time. Skin: Skin is warm and dry. Psychiatric: He has a normal mood and affect. His behavior is normal. Labs Reviewed: No results found for: WBC, RBC, HGB, HCT, RDW, PLT, NA, K, CL, AGAP, GLU, BUN, CR, GFRNON, GFR, CA,MAGNESIUM, ALB, ALT, AST, ALKP Endoscopic Results Reviewed: 2017 colonoscopy polyps and tumors and to repeat in 2020 . Requesting records from [facility]. EGD approximately 2004 with esophageal dilation Diagnoses/Impression: Diarrhea, unspecified type (primary encounter diagnosis) Pharyngoesophageal dysphagia History of colon polyps Hematochezia 1. Chronic diarrhea: X6 years worse in the morning and throughout sleeping hours. Patient denies any blood in the stool when it is in liquid form. Requesting for possible bowel biopsy to rule out IBD, particularly microscopic due to chronicity of patient's problem. Patient also noting a foul odor to his stool recently so we will do stool cultures as well as C. difficile testing preliminarily. Patient notes occasional hematochezia with mushy stools while taking an IBS supplement 8 tablets/day. Will attempt dicyclomine trial for chronic diarrhea. Patient had colonoscopy in 2017 and was told hehad polyps removed as well as a tumor. Pending results from GI divider. 2. Pharyngoesophageal dysphagia: with liquids and solids at throat level portion, worsens with carbonated beverage this is been going on for years he did have a history of a dilation approximately 15years ago for the same problem. 3. Comorbid Conditions: Diabetes mellitus diet controlled, HTN Recommendations and Plan: ?? Schedule Colonoscopy with biopsy to assess for IBD and EGD with possible dilation needed at [facility] ?? Suprep split prep ?? It is recommended to consume 20-35 grams of fiber per day and at least 64 ounces/2 liters of water per day. ?? Dicyclomine trial for chronic diarrhea 10 mg 4 times daily as needed I did instruct patient to initiate only taking twice a day particularly 1 dose prior to bed as he has more diarrhea episodes through the night and first thing in the morning. ?? Could consider cholestyramine due to being persistent possible bile salt diarrhea post cholecystectomy many years ago. ?? Pending stool cultures and C. difficile, WBC results ?? All questions answered ?? More recommendations to follow endoscopic evaluation, patient would like to have a 1 week follow-up post colonoscopy procedure in order to discuss findings. Orders placed this encounter: Dicyclomine 10 mg before meals and at bedtime as needed Suprep bowel prep Stool culture C. difficile test Fecal WBC Risks/Benefits/Options: Patient presented with risks (can include but are not limited to: discomfort, missing lesions, allergic or adverse reaction to the sedation, perforation of the bowel or upper GI tract which may require hospitalization and surgery, bleeding, infection, aspiration), benefits, and alternatives to the procedure(s) and are in agreement to proceed as planned. Magui Medeiros NP 03/07/2019 CH THERAPIST TECHNICIAN documented in this encounter Plan of Treatment Not on file documented as of this encounter Results * (ABNORMAL) STOOL FOR WBC (03/07/2019 11:14 AM SPEECH THERAPIST TECHNICIAN) Pathologist [facility] STOOL WBC LACTOFERRIN POSITIVE( A) NEGATIVE 03/07/2019 12:44 PM SPEECH THERAPIST TECHNICIAN [facility] STOOL SPECIMEN / Unknown 03/07/2019 11:14 AM SPEECH THERAPIST TECHNICIAN Magui Medeiros YEAST CAKE CUTTER BODY FLUIDS AND STOOLS ORDERABLE S Final Result [facility] [address] [place] [address], [place] [phone] * (ABNORMAL) CLOSTRIDIUM DIFFICILE (03/07/2019 11:14 AM SPEECH THERAPIST TECHNICIAN) [facility] MOLECULAR ASSAY UNACCEPTABLE SPECIMEN RECEIVED FOR TESTING. ??ONLY LIQUID STOOLS ARE ACCEPTABLE UNLESS ILEUS IS PRESENT. (A) NEGATIVE 03/07/2019 12:40 PM SPEECH THERAPIST TECHNICIAN [facility] Comment: Successful Call: [id number] called 03/07/2019 12:42 PM to [facility] ([id number]/NOT,CALLED) by [id number]. Read Back: No, ??NOT CALLED STOOL SPECIMEN / Unknown 03/07/2019 11:14 AM SPEECH THERAPIST TECHNICIAN Magui Medeiros YEAST CAKE CUTTER BODY FLUIDS AND STOOLS ORDERABLE S Final Result [facility] [address] [place] [address], [place] [phone] * Stool Culture (03/07/2019 11:14 AM SPEECH THERAPIST TECHNICIAN) Pathologist [facility] SPEC DESCRIPTION STOOL 03/07/2019 11:15 AM SPEECH THERAPIST TECHNICIAN [facility] SPECIAL REQUESTS NO SPECIAL REQUEST 03/07/2019 11:15 AM SPEECH THERAPIST TECHNICIAN [facility] CULTURE RESULT NEGATIVE FOR SHIGA TOXIN 1 AND 2 03/10/2019 7:17 AM SPEECH THERAPIST TECHNICIAN [facility] CULTURE RESULT NO ENTERIC PATHOGENS ISOLATED 03/10/2019 7:17 AM [facility] CULTURE RESULT NOTE: STOOL CULTURES ARE ROUTINELY SCREENED FOR SALMONELLA,SH IGELLA,YERSIN IA,AEROMONAS, PLESIOMONAS,C AMPYLOBA CTER,E.COLI 0157,OVERGROW THS OF S.AUREUS,YEAS T AND P. AERUGINOSA 03/10/2019 7:17 AM SPEECH THERAPIST TECHNICIAN [facility] Stool specimen (specimen) STOOL SPECIMEN / Unknown 03/07/2019 11:14 AM SPEECH THERAPIST TECHNICIAN 03/07/2019 11:37 AM SPEECH THERAPIST TECHNICIAN us Magui Medeiros NP MICROBIOLOGY - GENERAL ORDERABLE S Final Result [facility] [address] [place] [address], documented in this encounter Visit Diagnoses Diagnosis Diarrhea, unspecified type- Primary Pharyngoesophageal dysphagia Dysphagia, pharyngoesophageal phase History of colon polyps Personal history of colonic polyps Hematochezia Blood in stool documented in this encounter Care Teams Auto Mechanic Apprentice Relationship Specialty Start Date End Date Angeles Case MD [address] [place] [address] PCP - General INTERNAL MEDICINE 03/07/19 documented as of this encounter
--- OUTSIDE RECORDS SUMMARY | 2024-05-07 20:10 | XMS_ITS | Encounter Summary ---
Author Organization [facility] Address [address] [place] [address] Care Team Providers Care Reception Specialist Name Role Phone Unavailable Primary Care Provider Unavailabl e Reason for Visit * Reason Comments Imm Inj Encounter Details Date Type Department Care Team (Late st Contact Info) Description 01/04/2018 11:40 AM CDT Office Visit [facility] [address] [place] [address] Provider, Annalise Exp Nameoki Need for vaccination (Primary Dx) Social History Tobacco Use Types Packs/Day Years Used Date Smoking Tobacco: Never Assessed Sex and Gender Information Value Date Recorded Sex Assigned at Not on file Gender Identity Not on file Sexual Orientation Not on file documented as of this encounter Patient Instructions * Patient Instructions* Sofiya Jacques, UNION CARPENTER-SHELL MAKER LOCKSTITCH - 01/04/2018 10:27 AM CDT Images from the original note were not included. Influenza Vaccine LINUX ADMIN ENGINEER: The influenza vaccine is an injection given to help prevent influenza (flu). The flu is caused by avirus. The virus spreads from person to person through coughing and sneezing. Several types of viruses cause the flu. The viruses warp changer time, so new vaccines are made each year. The vaccine begins to protect you about 2 weeks after you get it. The flu shot usually injected into your upper arm. It may be given in your thigh. You may get a vaccine with a weak or virus. Call 911 for any of the following: ?? Your mouth and throat are swollen. ?? You are wheezing or have trouble breathing. ?? You have chest pain or your heart is beating faster than normal for you. ?? You feel like you are going to faint. Seek care immediately if: ?? Your face is red or swollen. ?? You have hives that spread over your body. ?? You feel weak or dizzy. Contact your healthcare provider if: ?? You have increased pain, redness, or swelling around the area where the shot was given. ?? You have questions or concerns about the influenza vaccine. When to get the influenza vaccine: The influenza vaccine is offered every year starting in early fall. Get the influenza vaccine as soon as it is available. Children 6 months through 8 years old need2 doses during the first year they get the vaccine. The 2 doses should be given at least 4 weeks apart. It is best if the same type of vaccine is given both times. The child can then receive 1 dose each year. Children 9 years or older should get 1 dose each year. Who should get the flu shot: ?? Infants 6 months or older ?? Any healthy adult who would like to decrease the risk for the flu ?? Anyone living with or caring for children younger than 5 years ?? Healthcare workers ?? Anyone who lives in a long-term care facility ?? Anyone who has chronic health problems, such as asthma, diabetes, or blood disorders ?? Anyone who has a weak immune system ?? Women who are or will be during the flu season Who should not get the flu shot: If you have an egg allergy, ask your healthcare provider if it is safe to get the flu shot. You will need to be closely monitored by a healthcare provider while you receive the vaccine, and for an hour or more after. The following should not get the flu shot: ?? Infants younger than 6 months ?? Anyone who has had an allergic reaction to the flu shot ?? Anyone who is sick or has a fever ?? Anyone who received a diagnosis of Guillain-Polo?? syndrome within 6 weeks of getting a flu vaccine ?? Anyone who is allergic to thimerosal (mercury) Risks of the influenza vaccine: The flu shot may cause mild symptoms, such as a fever, headache, and muscle aches. It may also cause mild to moderate soreness or redness at the area where you were given the shot. The nasal spray may cause a fever, runny or stuffy nose, headache, muscle aches, or vomiting. You may still get the flu after you receive the influenza vaccine. If you are allergic to eggs, ask about an egg-free vaccine. You may have an allergic reaction to the vaccine. This can be life-threatening. Follow up with your healthcare provider as directed: Write down your questions so you remember to ask them during your visits. ?? 2017 [employer] Information is for End User's use only and may not be sold, redistributed or otherwise used for commercial purposes. All illustrations and images included in CareNotes?? are the copyrighted property of [employer], [employer]. or [employer]. The above information is an gericare aide only. It is not intended as medical advice for individual conditions or treatments. Talk to your doctor, nurse or pharmacist before following any medical regimen to see if it is safe and effective for you. documented in this encounter Progress Notes * Sofiya Jacques APRN-CNP - 01/04/2018 10:22 AM CDT Patient here for flu vaccine today. Allergies reviewed. Vaccine consent signed, reviewed with patient, and scanned into record. Education materials provided to patient. Patient tolerated well. Sofiya Jacques APRN, CATERER'S AIDE-BC documented in this encounter Plan of Treatment Upcoming Encounters Date Type Department Care Team (Late st Contact Info) Description 05/21/2024 11:30 AM ASSISTANT PROFESSOR OF NURSING Office Visit [facility] [address] [facility] [place] [address] Karthik Erwin MD [address] [facility] [place], [place] [id number] 06/10/2024 10:40 AM ASSISTANT PROFESSOR OF NURSING Office Visit [facility] Cardiology [address] [facility] [facility] [address] [place] [address] Tiesha Riggs MD [address] [place] [id number] documented as of this encounter Visit Diagnoses Diagnosis Need for vaccination- Primary Need for prophylactic vaccination and inoculation against unspecified single disease documented in this encounter
--- OUTSIDE RECORDS SUMMARY | 2024-05-07 20:10 | XMS_ITS | Encounter Summary ---
Author Organization [facility] Address [address] [place] [address]. 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 Procedures EGD/COLON WITH BIOPSY COLONOSCOPY WITH BIOPSY Referral ID Status Reason Start Date Expiration Date Visits Re quested Visits Authorized [id number] 1 1 Encounter Details Date Type Department Care Team (Late st Contact Info) Description 04/14/2019 12:30 PM [facility]ICE C[facility] DIRECTOR - 04/14/2019 1:00 PM FAMILY SERVICE CENTER DIRECTOR Surgery [facility] End[place] [address] Nima Dawn MD [address] [address] EGD/COLON WITH esophageal BIOPSY via cold LARGE forcep and dilation via [id number] balloon Surgery Details Date/Time Status Location OR Service Patient Class Case Class Case Type Trauma Case? 04/14/2019 12:30 PM Posted [facility]o 2 Gastroenterology Short Stay/Outp [facility] Surgery E - Elective No Panel 1 Procedure LRB Anes Op Region Wound Class Comments EGD/COLON WITH esophageal BIOPSY via cold LARGE forcep and dilation via [id number] balloon N/A General Clean Contaminated COLONOSCOPY WITH RANDOM LEFT COLON BIOPSY VIA COLD LARGE FORCEP N/A General Colon Clean Contaminated R/O MICROSCOPIC COLITIS, IRRITABLE BOWEL Surgeon Surgeon Role Service Panel Nima Dawn MD Primary Gastroenterology 1 Case Notes SCHEDULED BY FAX 03/12/19 LB documented in this encounter Social History Tobacco [...] Comments Blood Pressure 158/89 04/14/2019 1:00 PM [facility] DIRECTOR Pulse 90 04/14/2019 1:00 PM [facility] C[facility] DIRECTOR Temperature 36.3 ??C (97.4 ??F) 04/14/2019 12:[address] Respiratory Rate 17 04/14/2019 1:00 PM [facility] CENTER DIRECTOR Oxygen Saturation 94% 04/14/2019 1:00 PM [facility] C[facility] DIRECTOR Inhaled Oxygen Concentration - - Weight 94.8 kg (209 lb) 04/14/2019 10:52 AM FAM[facility]ICE CENTER DIRECTOR Height 175.3 cm (5' 9 ) 04/10/2019 3:46 PM [facility] C[facility] DIRECTOR Body Mass Index 30.86 04/10/2019 3:46 PM [facility]ICE CENTER DIRECTOR documented in this encounter Discharge Instructions * Attachments The following attachments cannot be sent through Care Everywhere. * Upper GI Endoscopy Discharge Instructions (Chadian) * Colonoscopy Discharge Instructions (Chadian) * General Anesthesia Discharge Instructions (Chadian) documented in this encounter Medications at Time [...] have Barretts esophagus. See me to discuss LY SERVICE CENTER DIRECTOR documented in this encounter H&P Notes * [...] Procedure Laterality Date ??? CHOLECYSTECTOMY ??? COLONOSCOPY [address] [place] [address] ??? COLONOSCOPY 09/17/2014 Dr. Feng ascending and [...] file Gets together: Not on file Attends uatsdin service: Not on file Active member of [...] NIMA DAWN MD Voice recognition software utilized [facility] SERVICE CENTER DIRECTOR documented in this encounter Nursing Notes * Michelle Oliva RN - 04/10/2019 3:56 PM CST Attempted to call Dr Case s office to obtain any medical history r/t his sinus surgery and whatpossible allergy he might have. The office is closed. I will inform the CN so staff can follow up tomorrow with it. LY SERVICE CENTER DIRECTOR documented in this encounter OR Notes * Op Note - Nima Dawn MD - 04/14/2019 12:38 PM CST [facility] OpNote EGD/COLON WITH esophageal BIOPSY via cold LARGE forcep and dilation via [id number] balloon, COLONOSCOPY WITH RANDOM LEFT COLON BIOPSY VIA COLD LARGE FORCEP Procedure Note Abimbola Francisco 04/14/2019 1230 Procedure(s) (LRB): EGD/COLON WITH esophageal BIOPSY via cold LARGE forcep and dilation via [id number] balloon (N/A) COLONOSCOPY WITH RANDOM LEFT COLON BIOPSY VIA COLD LARGE FORCEP (N/A) Surgeon(s): Nima Dawn MD Staff: GI Nurse: Andra Alexandre, RN; Jessica Beasley, ERIN; Viv Nails RN press assistant: Shannon Oliva; Erum Overton Anesthesia: General Anesthesiologist: Herbie Betancur MD BILINGUAL SALES ASSISTANT: Jerome Villegas CRNA Pre-Op Diagnosis: CHRONIC DIARRHEA [...] stricture and was dilated up to 54 [place] without complication. Colonoscopy with random biopsies. PCF [...] of Goyal's taken. Stricture dilated to 54 [place] using CRE balloon. Colonoscopy was negative. Random left colon biopsies taken to evaluate the diarrhea. Plan: Check all biopsies. Complications: None Estimated Blood Loss: 0 mL Specimens: Order Name Source Comment Collection Info Order Time PATHOLOGY ESOPHAGUS Barretts Collected By: Nima Dawn MD 04/14/2019 12:29 PM Voice recognition software utilized. NIMA DAWN MD Date: 04/14/2019 Time: 12:39 PM Voice recognition software utilized. 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 Case Notes SCHEDULED BY FAX 03/12/19 LB POCT GLUCOSE - LOZA DOCKED DEVICE Routine 04/14/2019 10:51 AM [facility]ICE CENTER DIRECTOR EGD Routine 04/14/2019 10:32 AM [facility] C[facility] DIRECTOR COLONOSCOPY Routine 04/14/2019 10:32 AM [facility] C[facility] DIRECTOR PATHOLOGY Routine 04/14/2019 12:00 AM [facility] CENTER DIRECTOR documented in this encounter Results * POCT glucose (04/14/2019 10:51 AM FAM[facility] SERVICE CENTER DIRECTOR) GLUCOSE POC 83 70 - 99 mg/dL 04/14/2019 11:49 AM FAMILY SERVICE CENTER DIRECTOR [facility] ORDERS INTERFACE 04/14/2019 10:5 1 AM FAMILY SERVICE CENTER DIRECTOR us Nima Dawn MD POCT ORDERABLES - DEVICE Final R esult [facility] ORDERS INTERFACE US * Pathology (04/14/2019 12:00 AM FAMILY SERVICE CENTER DIRECTOR) COPATH REPORT ? [facility] ? [address] [facility] ? [place], [place] ??[address] ? [id number] ? Department of Pathology ? Pathology Report ? SURGICAL FINAL REPORT Patient Name: ABIMBOLA FRANCISCO ? : 1940 (Age: 79) ? Location: [facility] Gender: M ?Collected Date: 04/14/2019 Med Rec #: [id number] ?Date Received: 04/14/2019 Date Reported: 04/15/2019 Provider: [...] Signed Out ? LAUREL LENNON MD Pathologist IFH:if Microscopic Description: Microscopic examination is performed and [...] specimen is entirely submitted intact as B1. :[facility] Billing Fee Code(s): 43047(2) [facility] Tissue specimen (specimen) ESOPHAGEAL STRUCTURE / Unknown 04/14/2019 12:06 PM [facility]ICE CENTER DIRECTOR Comment:Barretts Tissue specimen (specimen) COLON STRUCTURE / Unknown 04/14/2019 12:22 PM [facility]ICE CENTER DIRECTOR Comment:R/o microscopic coli tis us Nima Dawn MD PATHOLOGY/CYTOLOGY ORDERABLES Fi nal Result [facility] [address] [place] [address], documented in this encounter Visit Diagnoses Not on filedocumented in this encounter Administered Medications Inactive Administered Medications - up to 3 most recent administrations Medication Order MAR Action Action Date Dose Rate Site lactated ringers infusion at 10 mL/hr, Intravenous, Continuous, Starting on Sun04/14/19 at 1130, Until Sun04/14/19 at 1604, Infuse at TKO rate, Pre-Op New Bag 04/14/2019 11:50 AM [facility] C[facility] DIRECTOR simethicone (MYLICON) 40 MG/0.6ML suspension As needed, Starting on Sun04/14/19 at 1219, Until Sun04/14/19 at 1237, Intra-Op Given 04/14/2019 12:19 PM [facility] C[facility] DIRECTOR 20 mg documented in this encounter Active and Recently Administered Medications Times are shown in FAM[facility] SERVICE CENTER DIRECTOR. Continuous Medication Order 04/12/2019 04/13/2019 04/14/2019 lactated [...] needed, Starting on Sun04/14/19 at 1219, Until Sun04/14/19 at 1237, Intra-Op 1219 (Given - Provid er: Nima Dawn MD - Comment: colonoscope flush) documented in this encounter Care Teams Membership Coordinator Relationship Specialty Start Date End Date Eliazar Case MD [address] [place] [address] PCP - General INTERNAL MEDICINE 03/07/19 documented as of this encounter
--- OUTSIDE RECORDS SUMMARY | 2024-05-07 20:10 | XMS_ITS | Encounter Summary ---
Author Organization [facility] Address [address] [place] [address]. [place], [place] [address] [place] [address] Care Team Providers Care Metal Patternmaker Name Role Phone Eliazar Case MD Primary Care Provider Encounter Details Date Type Department Care Team (Latest Contact Info) Description 03/12/2019 Scan HEALTH INFO SRVCS Scanned, Documents Social [...] on filedocumented in this encounter Care Teams Metal Patternmaker Relationship Specialty Start Date End Date Eliazar Case MD [address] [place] [address] PCP - General INTERNAL MEDICINE 03/07/19 documented as of this encounter
== END 2024-05-01 06:59 ==
PROVIDERS: Physician Assistant; Emergency Provider Emergency Medicine; PCP Nurse Practitioner
DX: R07.89 Other chest pain (principal); I10 Essential (primary) hypertension; E78.49 Other hyperlipidemia; N40.1 Benign prostatic hyperplasia with lower urinary tract symptoms; R35.1 Nocturia; I44.7 Left bundle-branch block, unspecified
CPT/HCPCS: 36415; 70450; 71046; 80053; 81003; 83690; 84484; 85025; 85610; 85730; 93005; 99284; A9270

== ENCOUNTER 2024-10-09 15:23 | Outpatient (CLI) | payer MEDICARE, SELFPAY ==
--- NOTE | ~2024-10-09 | XR_ITS ---
Left ankle Technique: AP, oblique, and lateral views were obtained. Clinical History: Pain Findings: No acute fracture or dislocation is seen. Osseous alignment is anatomic. Ankle mortise and other visualized joint spaces are preserved. Soft tissues are otherwise unremarkable. Impression: Unremarkable left ankle. Reviewed, dictated and finalized at location . Impression: Unremarkable left ankle.
--- OUTSIDE RECORDS SUMMARY | 2024-10-09 15:53 | XMS_ITS | Data Portability ---
Author Organization [place] - [facility] , [employer] [facility] Address [address] [place] [address] Assessment No assessment recorded. Plan of Treatment Reminders Order Date Submit Date Provider Last Modified By Organization Details Last Modified Time Details Appointments None record ed. Lab None record ed. Referral None record ed. Procedures None record ed. Surgeries None record ed. Imaging None record ed. Medication Orders None record ed. Patient TargetsNo targets recorded. Patient InstructionsNo instructions recorded. Reason for Referral None Reported. Medical Equipment None Reported. Allergies No known drug allergies Medications Name Sig Start Date Stop Date Status Note LastModified by Organization Details LastModified Time amiodarone 200 mg tablet TAKE 1/2 TABLET BY MOUTH DAILY active Not Available Not Available Not Available amlodipine 5 mg tablet TAKE 1 TABLET BY MOUTH DAILY active Not Available Not Available Not Available ciclopirox 8 % topical solution APPLY TO NAILS DAILY. REMOVE BUILD UP ONCE PER WEEK active Not Available Not Available No t Available cephalexin 500 mg capsule TAKE 1 CAPSULE BY MOUTH TWICE DAILY FOR 10 DAYS active Not Available Not Available No t Available buspirone 10 mg tablet TAKE 1 TABLET BY MOUTH TWICE DAILY NEEDED FOR ANXIETY active Not Available Not Available No t Available mirtazapine 15 mg tablet TAKE 1 TABLET BY MOUTH EVERY DAY AT BEDTIME active Not Available Not Available No t Available methylpredni solone 4 mg tablets in a dose pack FOLLOW PACKAGE DIRECTIONS active Not Available Not Available N ot Available lisinopril 40 mg tablet TAKE 1 TABLET BY MOUTH DAILY active Not Available Not Available Not Available Vitals None Recorded Social History None recorded. Functional Status None recorded. Mental Status None recorded. Family History Nothing Reported. Medical History No medical history recorded. Past Encounters Encounter ID Performer Location Encounter Start Date Encounter Closed Date Diagnosis/Indication Diagnosis SNOMED-CT Code Diagnosis ICD10 Code Diagnosis Note [id number] FLORENCE Santamaria [email or web address] [facility] [address] [place] [address] 09/10/2024 13:49:00 09/10/2024 22:07:30 [facility] [id number] R21 Health Concerns Section Related Observation LastModified by Organization Detai ls LastModified Time None Recorded Concern Status LastModified by Organization Details LastModified Time None Recorded Advance Directives Directive None Recorded Payers Insurance Date Sequence Insurance Name Policy Number Policy Corey Covered Member ID Corey Member ID Guarantor Name 09/09/2024 1 *SELF PAY* Lisa Carrera 09/09/2024 1 *SELF PAY* Karthik Carrera [place] Karthik Carrera Notes Date Note Type Note Provider Name and Address Organization Details Recorded Time 09/10/2024 text/html Call connected, patient greeted. Patient name, , telephone number and location verified verbally with the patient. Telemedicine limitations reviewed, answered all questions the patient had about the telehealth interaction, and verbal consent obtained to treat. Clinician attests they are physically located in the following state at the time of visit: [place] CC:luanne itch HPI:84 year old male patient presents today forVisit started, technical issue with loss of video during the visit FLORENCE Santamaria [address] [facility] [address], [place], [address], [facility] 09/10/2024 22:07:29
--- OUTSIDE RECORDS SUMMARY | 2024-10-09 15:53 | XMS_ITS | Clinical Summary ---
Author Organization [facility] Address [address] [address] Phone Care Team Providers Care Certified Medical Transcriptionist Name Role Phone Eliazar Case DO Primary Care Provider [phone] Moi Briggs MD Unavailable Keshawn Acevedo MD Unavailable Allergies Active Allergy Reactions Criticality Noted Date Comments Amoxicillin Unknown 07/16/2018 Chocolate Flavoring Agent (Non-Screening) Swelling 06/06/2024 Clavulanic Acid Unknown 07/16/2018 Medications aspirin EC 81 MG Tablet Delayed Response Take 81 mg by mouth daily. Active atenolol (TENORMIN) 50 MG Tablet Take 50 mg by mouth daily. 3 9 Active lisinopril (PRINIVIL, ZESTRIL) 10 MG Tablet Take 10 mg by mouth daily. 1 9 Active Multiple Vitamins-Mineral s (MULTIVITAMIN PO) Take by mouth. Activ e apixaban (ELIQUIS) 5 MG TabletIndication s:Atrial Fibrillation Take 1 Tablet by mouth 2 times daily. Indications: Atrial Fibrillation 180 Tablet 3 5 Active acetaminophen (TYLENOL) 500 MG Tablet Take 1,000 mg by mouth every 8 hours as needed. 4 Active ascorbic acid 500 MG Tablet Take 500 mg by mouth daily. Active dilTIAZem (CARDIZEM CD) 240 MG CAPSULE SR 24 HR Take 240 mg by mouth daily. 4 Active Vitamin D3 1000 UNIT Tablet Take 1 Tablet by mouth daily. Active DULoxetine (CYMBALTA) [address] Particles Take 20 mg by mouth nightly. Active Ferrous Sulfate (Iron) 325 (65 Fe) MG Tablet Take 325 mg by mouth daily. Active furosemide (Lasix) 20 MG Tablet Take 20 mg by mouth daily. Active hydrOXYzine (ATARAX) 25 MG Tablet Take 25 mg by mouth every 6 hours as needed. Active magnesium oxide (MAG-OX) 400 MG Tablet Take 400 mg by mouth daily. Active traZODone (DESYREL) 50 MG Tablet Take 50 mg by mouth nightly. Active Active Problems Problem Noted Date Diagnosed Date Paroxysmal atrial fibrillation 06/22/2024 HOCM (hypertrophic obstructive cardiomyopathy) 0 06/22/2024 Encounters Date Type Department Care Team Description 08/18/2024 Telephone [facility] [address] [place] [phone] Eliazar Case, DO Advice Only from Last 3 Months Family History Medical History Relation Name Comments Self-Injury Father Stroke Mother Relation Name Status Comments Father Mother Social History Tobacco Use Types Packs/Day Years Used Date Smoking Tobacco: Never Smokeless Tobacco: Never Tobacco Cessation:Counseling Given: Not Answered Alcohol Use Standard Drinks/Week Comments Yes 0 (1 standard drink = 0.6 oz pur e alcohol) 1 glass of wine occasionally Sex and Gender Information Value Date Recorded Sex Assigned at Not on file Legal Sex Male 11:42 PM CDT Gender Identity Not on file Sexual Orientation Not on file Last Filed Vital Signs Vital Sign Reading Time Taken Comments Blood Pressure 144/62 06/20/2024 10:58 AM [employer]IAL WORK [employer]LES Pulse 66 06/20/2024 10:58 AM [employer] Temperature 36.6 C (97.8 F) 06/20/2024 10:58 AM [employer] Respiratory Rate 16 06/20/2024 10:58 AM [employer] Oxygen Saturation 95% 06/20/2024 10:58 AM [employer]IAL WORK [employer]LES Inhaled Oxygen Concentration - - Weight 77.1 kg (170 lb) 06/20/2024 10:58 AM [employer] Height 175.3 cm (5' 9) 06/20/2024 10:58 AM [employer] WORK [employer]ITLES Body Mass Index 25.1 06/20/2024 10:58 AM [employer] Plan of Treatment Upcoming Encounters Date Type Department Care Team (Late st Contact Info) Description 12/18/2024 1:00 PM CDT Office Visit [facility] - Cardiology - [address] [place] [address] Tanvi New, CLERICAL OFFICE, DRUG CLERK [address] [place] [address] Health Maintenance Due Date Last Done Comments Hepatitis C Virus (HCV) Screening 1940 Zoster Immunization (1 of 2) 1991 Respiratory Syncytial Virus (RSV) Immunization (Adult) (1 - 1-dose 75+ series) 01/08/2016 Pneumococcal Immunization (50+ years) (2 of 2 - PPSV23) 01/10/2016 01/09/2015 SARS-COV-2 Immunization ( season) 2024 01/03/2024, 02/23/2023, 01/06/2022, Additional history exists Pneumococcal Immunization Combined Discontinued 01/09/2015 Influenza Immunization Completed , 02/23/2023, 01/06/2022, Additional history exists DTaP/Tdap/Td Immunization Discontinued 03/31/2024 TdaP Immunization Completed 03/31/2024 Hepatitis B Immunization Aged Out No longer eligible based on patient's age to complete this topic Human Papillomavirus (HPV) Immunization Aged Out No longer eligible based on patient's age to complete this topic Meningococcal Immunization (ACWY) Aged Out No longer eligible based on patient's age to complete this topic Rotavirus Immunization Aged Out No lo nger eligible based on patient's age to complete this topic Insurance MEDICARE Care Teams Certified Medical Transcriptionist Relationship Specialty Start Date End Date Eliazar Case DO [address] [place], [place] [id number] PCP - General Internal Medicine 05/13/18 Moi Briggs MD [address] [facility] [address] [place] [address] Consulting Physician Clinical Cardiac Electrophysiology 06/06/24 Keshawn Acevedo MD [address] [facility] [address] [place] [address] Consulting Physician Cardiology 06/20/24
--- OUTSIDE RECORDS SUMMARY | 2024-10-09 15:53 | XMS_ITS | Clinical Summary ---
Author Organization [facility] [employer] Address [address] [place] [address] Care Team Providers Care Clinical Support Specialist Name Role Phone Eliazar Case Primary Care Provider [phone] Source Comments [facility] [employer],non-owned Affiliates and Associated Physician Practices is amultiple site organization consisting of ambulatory clinics and hospital sitesin [place], [place] and [place]. This disclosure is being madepursuant to the Care Everywhere program and may not contain all information available regarding this patient. Last updated 18.[facility] [employer] Allergies Active Allergy Reactions Criticality Noted Date Comments Amoxicillin-Pot Clavulanate Rash Medium 04/14/20 19 Medications * Be aware that medications may not be up to date on this document. Alwaysverify current medications with the patient. acetaminophen (Tylenol) 500 MG tablet Take 2 (two) tablets by mouth every 8 hours as needed for Fever or Pain Maximum allowable Acetaminophen amount = 4 Grams (4000 mg) / 24 hours. 4 Active amiodarone (Cordarone) 200 MG tablet Take 1 (one) tablet by mouth once daily 4 Active apixaban (Eliquis) 5 MG tablet Take 1 (one) tablet by mouth 2 times daily 4 Active lisinopril (Prinivil; Zestril) 40 MG tablet Take 1 (one) tablet by mouth once daily 4 Active dilTIAZem coated beads 24hr (Cardizem CD) 240 MG capsule Take 1 (one) capsule by mouth once daily Do not crush or chew. 4 Active polyethylene glycol 3350 (Miralax) 17 g packet Take 17 (seventeen) g by mouth once daily as needed for Constipation 4 Active vitamin D3 (Cholecalcifer ol) 25 MCG (1000 UNITS) tablet Take 1 (one) tablet by mouth once daily 4 Active senna (Senokot) 8.6 MG tablet Take 1 (one) tablet by mouth once daily 4 Active furosemide (Lasix) 20 MG tablet Take 1 (one) tablet by mouth once daily 4 Active camphor-mentho l (Sarna/Dermasa rra) 0.5-0.5 % lotion Apply to affected area 3 times daily as needed for Itching 4 Active oxyCODONE, immediate release, (Roxicodone) 5 MG tabletIndicati ons:Closed fracture of medial portion of left tibial plateau, initial encounter Take 1 (one) tablet by mouth every 6 hours as needed 4 Active traZODone (Desyrel) 50 MG tablet Take 1 (one) tablet by mouth nightly as needed for Insomnia 4 Active Active Problems Problem Noted Date Diagnosed [...] unspecified fracture morphology, initial encounter 03/31/2024 Immunizations Immunization Administration Dates Next Due INFLUENZA VACCINE, HIGH-DOSE [...] Answer Date Recorded Patient Health Questionnaire-2 Score 1 05/21/2024 [facility] - Occupational Stress [...] any time in the past [address] [facility], were you homeless or living in a skilled nursing (including now)? No 04/02/2024 Sex and Gender Information Value Date Recorded Sex Assigned at Not on file Legal Sex Male 10:02 AM CDT Gender Identity Not on file Sexual Orientation Not on file Last Filed Vital Signs Vital Sign Reading Time Taken Comments Blood Pressure 147/74 04/09/2024 7:30 PM SCRUB WOMAN Pulse 74 04/09/2024 7:30 PM SCRUB WOMAN Temperature 36.7 C (98.1 F) 04/09/2024 7:30 PM SCRUB WOMAN Respiratory Rate 17 04/09/2024 7:30 PM SCRUB WOMAN Oxygen Saturation 94% 04/09/2024 7:30 PM SCRUB WOMAN Inhaled Oxygen Concentration 21% 04/07/2024 9:15 PM SCRUB WOMAN Weight 96.6 kg (213 lb) 05/21/2024 1:02 PM SCRUB WOMAN Height 175.3 cm (5' 9) 05/21/2024 1:02 PM SCRUB WOMAN Body Mass Index 31.45 05/21/2024 1:02 PM SCRUB WOMAN Plan of Treatment Health Maintenance Due Date Last Done Comments MEDICARE AWV 12 MONTHS 1940 PNEUMOCOCCAL VACCINE 50+ (1 of 1 - PCV) 1991 ZOSTER VACCINE (1 of 2) 1991 Respiratory Syncytial Virus (RSV) Vaccine Pt: or over 60 yrs (1 - 1-dose 75+ series) 01/08/2016 COVID-19 VACCINE ( season) 2024 01/03/2024, 02/23/2023, 01/06/2022, Additional history exists DTAP/TDAP/TD VACCINES (2 - Td or Tdap) 03/31/2034 03/31/2024 INFLUENZA VACCINE Completed 01/03/2024, , 01/06/2022, Additional history exists DEPRESSION SCREENING Completed 05/21/2024, 04/24/20 24 HEPATITIS B VACCINE Aged Out No longe r eligible based on patient's age to complete this topic HIB VACCINE Aged Out No longer eligi ble based on patient's age to complete this topic HPV VACCINE Aged Out No longer eligi ble based on patient's age to complete this topic MENINGOCOCCAL (Group B) VACCINE SHARED DECISION-MAKING Aged Out No longer eligible based on patient's age to complete this topic MENINGOCOCCAL GROUPS A/C/Y/W VACCINE Aged Out No longer eligible based on patient's age to complete this topic Medical Devices Implanted Type Area General Matcher Device Identifier Shelf Expiration Date Model / Serial / Lot Agent Hmst Thrmb Kt Surgiflo 2ml Implanted:Qty: 1 on 04/01/2024 by Karthik Erwin MD at [facility] Left: Leg [employer] 04/29/2025 [id number] / / [id number] Screw 4.7mm 5.6mm 70mm 2.5mm Ft Va Lopro Implanted:Qty: 2 on 04/01/2024 by Karthik Erwin MD at [facility] Left: [employer] [id number] / / Plate 11 Hl Va Lck Lopro Fib Lt Dist Lat Implanted:Qty: 1 on 04/01/2024 by Karthik Erwin MD at [facility] Left: [employer] [id number] / / Screw 3.5mm 28mm Slf-Tap Cortx Evos Strl Implanted:Qty: 1 on 04/01/2024 by Karthik Erwin MD at [facility] Left: [employer] [id number] / / Screw 3.5mm 30mm Cortx Slf-Tap Evos Strl Implanted:Qty: 1 on 04/01/2024 by Karthik Erwin MD at [facility] Left: [employer] [id number] / / Screw 3.5mm 38mm Slf-Tap Cortx Evos Strl Implanted:Qty: 2 on 04/01/2024 by Karthik Erwin MD at [facility] Left: [employer] [id number] / / Screw 3.5mm 46mm Slf-Tap Cortx Evos Strl Implanted:Qty: 1 on 04/01/2024 by Karthik Erwin MD at [facility] Left: [employer] [id number] / / 4.7mm Osteopenia Screw, Fully Threaded, 40mm Implanted:Qty: 1 on 04/01/2024 by Karthik Erwin MD at [facility] Left: Tibia [employer] Trauma [id number] / / Screw 4.7mm 70mm Ft Evos Strl Osteopenia Implanted:Qty: 2 on 04/01/2024 by Karthik Erwin MD at [facility] Left: [employer] [id number] / / Screw 3.5mm 80mm Slf-Tap Lck Evos Strl Implanted:Qty: 1 on 04/01/2024 by Karthik Erwin MD at [facility] Left: [employer] [id number] / / Explanted Type Area General Matcher Device Identifier Shelf Expiration Date Model / Serial / Lot Wire K 1.6mm 150mm Troc Pnt Ss Fx Strl Explanted:Qty: 2 on 04/01/2024 by Karthik Erwin MD at [facility] Left: [employer] [id number] / / Insurance MEDICARE MEDICARE Member Subscriber Plan / Payer ( fective 2002-Present) Name:Karthik Carrera Member ID:[id number] Relation to Subscriber:Self Name:Karthik Carrera Subscriber ID:[id number] Payer ID:Not on file Group ID:Not on file Type:Medicare Address: [address] [place] [employer] MEDICARE Advance Directives * Full Code (Latest Code Status on File) Date Activated Date Inactivated Comments 03/31/2024 2:03 PM 04/09/2024 9:48 PM Care Teams Clinical Support Specialist Relationship Specialty Start Date End Date Eliazar Case DO [address] [facility] [address] [place] [address] PCP - General Internal Medicine 01/14/20
== END 2024-10-09 15:24 | disposition home or self-care (01) ==
PROVIDERS: PCP Nurse Practitioner; Visit Provider Podiatrist Foot & Ankle Surgery
DX: M25.572 Pain in left ankle and joints of left foot (principal)
CPT/HCPCS: 73610

== ENCOUNTER 2025-03-10 13:53 | Outpatient (CLI) | payer MEDICARE, SELFPAY ==
--- NOTE | 2025-03-10 14:00 | NEURO_ITS ---
Impression: # Complains of gait dysfunction. ? 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 Nerve Conduction Studies ?Stim Site NR Peak (ms) P-T Amp (?V) Site1 Site2 Delta-P (ms) Dist (cm) Wong (m/s) Left Sup Fibular Anti Sensory (Ant Lat Mall)??? NO RESPONSE 14 cm ? 4.7 7.0 14 cm Ant Lat Mall 4.7 16.0 34 Right Sup Fibular Anti Sensory (Ant Lat Mall)??? NO RESPONSE 14 cm NR 14 cm Ant Lat Mall 16.0 Left Sural Anti Sensory (Lat Mall) Calf NR Calf Lat Mall 16.0 Right Sural Anti Sensory (Lat Mall)??? NO RESPONSE Calf NR Calf Lat Mall 16.0 ?Stim Site NR Onset (ms) O-P Amp (mV) Site1 Site2 Delta-0 (ms) Dist (cm) Wong (m/s) Left Peroneal Motor (Vastus Med)??? NO RESPONSE Ankle NR Popit Ankle 0.0 Popit NR Right Peroneal Motor (Vastus Med)??? NO RESPONSE Ankle NR Popit Ankle 0.0 Popit NR Left Tibial Motor (Abd Snow Brev) Ankle ? 6.6 0.2 Knee Ankle 12.7 44.0 35 Knee ? 19.3 0.1 Right Tibial Motor (Abd Snow Brev)??? NO RESPONSE Ankle NR Knee Ankle 0.0 Knee NR F Wave Studies ?NR F-Lat (ms) L-R F-Lat (ms) Left Peroneal (Mrkrs) (EDB)??? DISPERSED RESPONSE NR Right Peroneal (Mrkrs) (EDB)??? NO RESPONSE NR Left Tibial (Mrkrs) (Abd Hallucis) ? 67.49 Right Tibial (Mrkrs) (Abd Hallucis)??? DISPERSED RESPONSE NR Electromyography ?Side Muscle Nerve Root Ins Act Fibs Amp Dur Recrt Comment Right AntTibialis Dp Br Fibular L4-5 Nml Nml Decr >12ms +3 Left AntTibialis Dp Br Fibular L4-5 Nml Nml Decr >12ms +3 Right Ext Dig Brev Dp Br Fibular L5, S1 Nml Nml Decr >12ms +4 Left Ext Dig Brev Dp Br Fibular L5, S1 Nml Nml Decr >12ms +4 Right Fibularis Long Sup Br Fibular L5-S1 Nml Nml Decr >12ms +3 Left Fibularis Long Sup Br Fibular L5-S1 Nml Nml Decr >12ms +3 Right Flex Dig Long Tibial L5-S2 Nml Nml Decr >12ms +3 Left Flex Dig Long Tibial L5-S2 Nml Nml Decr >12ms +3 Right Gastroc Tibial S1-2 Nml Nml Decr >12ms +3 Left Gastroc Tibial S1-2 Nml Nml Decr >12ms +3 Right QuadratusFem QuadFemoris L4-5, S1 Nml Nml Decr >12ms +3 Left QuadratusFem QuadFemoris L4-5, S1 Nml Nml Decr >12ms +3
--- OUTSIDE RECORDS SUMMARY | 2025-03-10 14:00 | XMS_ITS | Clinical Summary ---
Author Organization [facility] [employer] Address [address] [place] [address] Care Team Providers Care Keycase Assembler Name Role Phone Eliazar Case Primary Care Provider [phone] [facility],non-owned Affiliates and Associated Physician Practices is amultiple site organization consisting of ambulatory clinics and hospital sitesin [place], [place], [place] and [place]. This disclosure is being madepursuant to the Care Everywhere program and may not contain all information available regarding this patient. Last updated 18.[facility] Allergies Active Allergy Reactions Criticality Noted Date [...] Recorded Patient Health Questionnaire-2 Score 1 05/21/2024 [facility] - [...] any time in the past 12 m [facility], were you homeless or living in a nursing home (including now)? No 04/02/2024 Sex and Gender Information Value Date Recorded Sex Assigned at Not on file Legal Sex Male 10:02 AM CDT Gender Identity Not on file Sexual Orientation Not on file Last Filed Vital Signs Vital Sign Reading Time Taken Comments Blood Pressure 147/74 04/09/2024 7:30 PM WARP TRUCKER Pulse 74 04/09/2024 7:30 PM WARP TRUCKER Temperature 36.7 C (98.1 F) 04/09/2024 7:30 PM WARP TRUCKER Respiratory Rate 17 04/09/2024 7:30 PM WARP TRUCKER Oxygen Saturation 94% 04/09/2024 7:30 PM WARP TRUCKER Inhaled Oxygen Concentration 21% 04/07/2024 9 :15 PM WARP TRUCKER Weight 96.6 kg (213 lb) 05/21/2024 1:02 PM WARP TRUCKER Height 175.3 cm (5' 9) 05/21/2024 1:02 PM WARP TRUCKER Body Mass Index 31.45 05/21/2024 1:02 PM WARP TRUCKER Plan of Treatment Health Maintenance Due Date Last Done Comments MEDICARE AWV 12 MONTHS 1940 PNEUMOCOCCAL VACCINE 50+ (1 of 1 - PCV) 1991 ZOSTER VACCINE (1 of 2) 1991 Respiratory Syncytial Virus (RSV) Vaccine Pt: or over 60 yrs (1 - 1-dose 75+ series) 01/08/2016 COVID-19 VACCINE ( season) 2024 01/03/2024, 02/23/2023, 01/06/2022, Additional history exists INFLUENZA VACCINE (#1) 2024 , 02/23/2023, 01/06/2022, Additional history exists DTAP/TDAP/TD VACCINES (2 - Td or Tdap) 03/31/2034 03/31/2024 DEPRESSION SCREENING Completed 05/21/2024, 04/24/20 24 HEPATITIS [...] this topic Medical Devices Implanted Type Area Wire Stripper Device Identifier Shelf Expiration Date Model / Serial / Lot Agent Hmst Thrmb Kt Surgiflo 2ml Implanted:Qty: 1 on 04/01/2024 by Karthik Erwin MD at [facility] Left: Leg [employer] 04/29/2025 [id number] / / [id number] Screw 4.7mm 5.6mm 70mm 2.5mm Ft Va Lopro Implanted:Qty: 2 on 04/01/2024 by Karthik Erwin MD at [facility] Left: Tibia [employer] [id number] / / Plate 11 Hl Va Lck Lopro Fib Lt Dist Lat Implanted:Qty: 1 on 04/01/2024 by Karthik Erwin MD at [facility] Left: [employer] [id number] / / Screw 3.5mm 28mm Slf-Tap Cortx Evos Strl Implanted:Qty: 1 on 04/01/2024 by Karthik Erwin MD at [facility] Left: [employer] [id number] / / Screw 3.5mm 30mm Cortx Slf-Tap Evos Strl Implanted:Qty: 1 on 04/01/2024 by Karthik Erwin MD at [facility] Left: [employer] [id number] / / Screw 3.5mm 38mm Slf-Tap Cortx Evos Strl Implanted:Qty: 2 on 04/01/2024 by Karthik Erwin MD at [facility] Left: [employer] [id number] / / Screw 3.5mm 46mm Slf-Tap Cortx Evos Strl Implanted:Qty: 1 on 04/01/2024 by Karthik Erwin MD at [facility] Left: [employer] [id number] / / 4.7mm Osteopenia Screw, Fully Threaded, 40mm Implanted:Qty: 1 on 04/01/2024 by Karthik Erwin MD at [facility] Left: Tibia [employer] Trauma [id number] / / Screw 4.7mm 70mm Ft Evos Strl Osteopenia Implanted:Qty: 2 on 04/01/2024 by Karthik Erwin MD at [facility] Left: [employer] [id number] / / Screw 3.5mm 80mm Slf-Tap Lck Evos Strl Implanted:Qty: 1 on 04/01/2024 by Karthik Erwin MD at [facility] Left: [employer] [id number] / / Explanted Type Area Wire Stripper Device Identifier Shelf Expiration Date Model / Serial / Lot Wire K 1.6mm 150mm Troc Pnt Ss Fx Strl Explanted:Qty: 2 on 04/01/2024 by Karthik Erwin MD at [facility] Left: [employer] [id number] / / Insurance MEDICARE Member Subscriber Plan / Payer ( fective 2002-Present) Name:Karthik Carrera Member ID:[id number] Relation to Subscriber:Self Name:Karthik Carrera Subscriber ID:[id number] Payer ID:Not on file Group ID:Not on file Type:Medicare Address: [place] [id number] MEDICARE Member Subscriber Plan / Payer ( fective 2002-Present) Name:Karthik Carrera Member ID:[id number] Relation to Subscriber:Self Name:Karthik Carrera Subscriber ID:[id number] Payer ID:Not on file Group ID:Not on file Type:Medicare Address: [address] [place] [employer] [employer] MEDICARE Advance Directives * Full Code (Latest Code Status on File) Date Activated Date Inactivated Comments 03/31/2024 2:03 PM 04/09/2024 9:48 PM Care Teams Keycase Assembler Relationship Specialty Start Date End Date Eliazar Case DO [address] [facility] [address] [facility] [address] [place] [address] PCP - General Internal Medicine 01/14/20
--- OUTSIDE RECORDS SUMMARY | 2025-03-10 14:00 | XMS_ITS | Clinical Summary ---
Author Organization [facility] Address [facility] [place] [address] Care Team Providers Care Lead Net Software Developer Name Role Phone Eliazar Case MD Primary Care Provider [phone] Allergies Active Allergy Reactions Criticality Noted Date [...] Active Active Problems No known active problems Family History Medical History Relation Comments Parkinson's [...] Comments Blood Pressure 140/82 05/08/2019 3:18 PM ELECTRICAL TRYOUT PERSON Pulse 50 05/08/2019 3:18 PM ELECTRICAL TRYOUT PERSON Temperature 36.9 C (98.4 F) 05/08/2019 3:18 PM ELECTRICAL TRYOUT PERSON Respiratory Rate 18 05/08/2019 3:18 PM ELECTRICAL TRYOUT PERSON Oxygen Saturation 97% 05/08/2019 3:18 PM ELECTRICAL TRYOUT PERSON Inhaled Oxygen Concentration - - Weight 95.4 kg (210 lb 6.4 oz) 05/08/2019 3:18 P M ELECTRICAL TRYOUT PERSON Height 175.3 cm (5' 9) 05/08/2019 3:18 PM ELECTRICAL TRYOUT PERSON Body Mass Index 31.07 05/08/2019 3:18 PM ELECTRICAL TRYOUT PERSON Plan of Treatment Health Maintenance Due Date Last Done Comments DTaP, Tdap and Td Vaccines ( 1 - Tdap) 01/08/1959 Pneumococcal Vaccine: 50+ Years (1 of 1 - PCV) 1991 Zoster Vaccines (1 of 2) 1991 Annual Medicare Wellness Visit 2006 RSV Immunization or 60+ Years (1 - 1-dose 75+ series) 01/08/2016 COVID-19 Vaccine ( - 2024-2 6 season) 2024 Influenza Adult (#1) 2025 01/31/2019, 01/04/2018 Hepatitis A Vaccines Aged Out No long er eligible based on patient's age to complete this topic Meningococcal B Vaccine Aged Out No l onger eligible based on patient's age to complete this topic Meningococcal Vaccine Aged Out No hailey campbell eligible based on patient's age to complete this topic RSV Immunizations Under 20 Months Aged Out No longer eligible b ased on patient's age to complete this topic Insurance MEDICARE [facility] Care Teams Lead Net Software Developer Relationship Specialty Start Date End Date Eliazar Case MD [address] [place] [address] PCP - General INTERNAL MEDICINE 03/07/19
--- OUTSIDE RECORDS SUMMARY | 2025-03-10 14:00 | XMS_ITS | Clinical Summary ---
Author Organization [facility] Address [address] [address] Phone Care Team Providers Care Alternative Education Teacher Name Role Phone Keshawn Acevedo MD Unavailable Tiesha Riggs MD Unavailable Ben Araujo APRN, HEEL CEMENTER Primary Care Provider Allergies Active Allergy Reactions Criticality Noted Date Comments Amoxicillin Unknown 07/16/2018 Chocolate Flavoring Agent (Non-Screening) Swelling 06/06/2024 Clavulanic Acid Unknown 07/16/2018 Medications amiodarone (CORDARONE) 200 MG Tablet Take 1 Tablet by mouth daily. 30 Tablet 3 5 Active amLODIPine (NORVASC) 5 MG Tablet Take 5 mg by mouth daily. 5 Active apixaban (ELIQUIS) 2.5 MG TabletIndication s:Atrial Fibrillation Take 1 Tablet by mouth 2 times daily. Indications: Atrial Fibrillation 180 Tablet 1 5 Active lisinopril (PRINIVIL, ZESTRIL) 10 MG Tablet Take 2 Tablets by mouth daily. 90 Tablet 1 5 Active Active Problems Problem Noted Date Diagnosed Date Paroxysmal atrial fibrillation 06/22/2024 HOCM (hypertrophic obstructive cardiomyopathy) 0 06/22/2024 Encounters Date Type Department Care Team Description 01/16/2025 2:30 PM CDT Office Visit [facility] - Cardiology [facility] [address] [place] [address] Keshawn Acevedo MD Paroxysmal atrial fibrillation (HCC) (Primary Dx); HOCM (hypertrophic obstructive cardiomyopathy) (HCC) Discharge Disposition: Discharged to home or Selfcare 01/16/2025 Travel 12/17/2024 2:30 PM CDT - 12/17/2024 11:59 PM CDT Hospital Encounter [facility]iology Services [address] [place] [address] Tiesha Riggs MD Discharge Disposition: Discharged to home or Selfcare 12/17/2024 Travel 12/10/2024 2:30 PM CDT Office Visit [facility] - Cardiology [facility] [address] [place] [address] Tiesha Riggs MD Palpitation (Primary Dx) Discharge Disposition: Discharged to home or Selfcare 12/10/2024 Travel from Last 3 Months Family History Medical [...] Sign Reading Time Taken Comments Blood Pressure 142/90 01/16/2025 2:43 PM CDT Pulse 75 01/16/2025 2:43 PM CDT Temperature 36.6 C (97.9 F) 01/16/2025 2:43 PM CDT Respiratory Rate 16 01/16/2025 2:43 PM CDT Oxygen Saturation 96% 01/16/2025 2:43 PM CDT Inhaled Oxygen Concentration - - Weight 78.9 kg (174 lb) 01/16/2025 2:43 PM CDT Height 175.3 cm (5' 9) 01/16/2025 2:43 PM CDT Body Mass Index 25.7 01/16/2025 2:43 PM CDT Plan of Treatment Upcoming Encounters Date Type Department Care Team (Late st Contact Info) Description 04/09/2025 4:00 PM DRUG SAFETY ASSISTANT Appointment [facility] Cardiology Services [address] [place] [address] Keshawn Acevedo MD 2 [facility] [place] [facility] [address] [place] [address] Discharge Disposition: Discharged to home or Selfcare 01/22/2026 3:00 PM CDT Office Visit [facility] - [facility]iology - [place] [address] [facility] [place] [phone] Keshawn Acevedo MD 2 [facility] [place] [address] [place] [address] Health Maintenance Due Date Last Done Comments Hepatitis C Virus (HCV) Screening 1940 Zoster Immunization (1 of 2) 1991 Respiratory Syncytial Virus (RSV) Immunization (Adult) (1 - 1-dose 75+ series) 01/08/2016 Pneumococcal Immunization (50+ years) (2 of 2 - PCV20 or PCV21) 01/10/2016 01/09/2015 Influenza Immunization (#1) 12/29/202408/2023, 02/23/2023, 01/06/2022, Additional history exists SARS-COV-2 Immunization ( season) 2024 01/03/2024, 02/23/2023, 01/06/2022, Additional history exists Pneumococcal Immunization Combined Discontinued 01/09/2015 DTaP/Tdap/Td Immunization Discontinued 03/31/2024 TdaP Immunization Completed [...] Procedure Name Priority Date/Time Associated Diagnosis Comments HOLTER MONITOR RECORDING ONLY-48 HOUR Routine 12/17/2024 2:42 PM CDT Palpitation THYROID SCREEN WITH REFLEX Routine 12/10/2024 4:33 PM CDT [place]pitation THYROXINE (T4) FREE Routine 12/10/2024 4 :33 PM CDT Palpitation THYROID SCREEN WITH REFLEX Routine 12/10/2024 4:33 PM CDT Palpitation CMP (COMPREHENSIVE METABOLIC PANEL) Routine 12/10/2024 4:33 PM CDT Palpitation ELECTROCARDIOGRAM, COMPLETE Today 12/10/2024 2:30 PM CDT Palpitation from Last 3 Months Results * HOLTER MONITOR RECORDING ONLY-48 HOUR (12/17/2024 2:42 PM CDT) Anatomical Region Laterality Modality CARDIO N/A Electrocardiogra phy Narrative 01/01/2025 12:37 PM CDT MEDIUM-TERM HOLTER REPORT DATE: 12/17/2024 until 12/24/2024. DIAGNOSTIC TIME: 4 days, 7 hours, 26 minutes. The predominant rhythm was sinus rhythm. Maximum heart rate 143 beats per minute, minimum heart rate 43 beats per minute, average heart rate 65 beats per minute. There was no atrial fibrillation or atrial flutter detected. There was no atrial or ventricular block detected. There were no pauses >3 seconds detected. There was no ventricular tachycardia detected. Ectopies: There were 2 ventricular ectopies detected, burden <1%. There were 330 supraventricular ectopies detected, burden <1%. There were 7 occurrences of a supraventricular tachycardia, longest episode was 6 beats. There were 8 patient triggers, none of which associated with arrhythmias. CONCLUSION: Predominantly sinus rhythm. Rare supraventricular ectopy and supraventricular tachycardia, not associated with symptoms. Job: [id number] Procedure Note Aline Montano MD PhD - 01/01/2025 MEDIUM-TERM HOLTER REPORT DATE: 12/17/2024 until 12/24/2024. DIAGNOSTIC TIME: 4 days, 7 hours, 26 minutes. The predominant rhythm was sinus rhythm. Maximum heart rate 143 beats perminute, minimum heart rate 43 beats per minute, average heart rate 65beats per minute. There was no atrial fibrillation or atrial flutter detected. There was no atrial or ventricular block detected. There were no pauses >3 seconds detected. There was no ventricular tachycardia detected. Ectopies: There were 2 ventricular ectopies detected, burden <1%. Therewere 330 supraventricular ectopies detected, burden <1%. There were 7occurrences of a supraventricular tachycardia, longest episode was 6beats. There were 8 patient triggers, none of which associated with arrhythmias. CONCLUSION: Predominantly sinus rhythm. Rare supraventricular ectopy andsupraventricular tachycardia, not associated with symptoms. Job: [id number] Tiesha Riggs MD IMG ECG ORDERABLES Final Result * THYROID SCREEN WITH REFLEX (12/10/2024 4:33 PM CDT) TSH 1.091 0.300 - 5.000 mIU/L 12/10/2024 5:36 PM CDT [facility] Blood Venipuncture / Unknown 12/10/2024 4:33 PM CDT 12/10/2024 4:45 PM CDT Tiesha Riggs MD CHEMISTRY ORDERABLES Final Resul t [facility] [address] [place] [address] * THYROXINE (T4) FREE (12/10/2024 4:33 PM CDT) T4 FREE 1.2 0.7 - 1.9 ng/dL 12/10/2024 5:38 PM CDT [facility] Blood Venipuncture / Unknown 12/10/2024 4:33 PM CDT 12/10/2024 4:45 PM CDT us Tiesha Riggs MD CHEMISTRY ORDERABLES Final Resul t [facility] [address] [place] [address] * (ABNORMAL) CMP (COMPREHENSIVE METABOLIC PANEL) (12/10/2024 4:33 PM CDT) SODIUM 140 136 - 145 mmol/L 12/10/2024 5:16 PM CDT [facility] POTASSIUM 3.9 3.5 - 5.1 mmol/L 12/10/2024 5:16 PM CDT [facility] CHLORIDE 107 98 - 107 mmol/L 12/10/2024 5:16 PM CDT [facility] CO2, VENOUS 22 22 - 30 mmol/L 12/10/2024 5:16 PM CDT [facility] ANION GAP 14.9 <18.0 mmol/L 12/10/2024 5:16 PM CDT [facility] GLUCOSE 115(H) 70 - 99 mg/dL 12/10/2024 5:16 PM CDT [facility] BUN 18 8 - 26 mg/dL 12/10/2024 5:16 PM CDT [facility] CREATININE, BLOOD 1.15 0.70 - 1.30 mg/dL 12/10/2024 5:16 PM CDT [facility] BUN/CREATININE RATIO 16 12 - 20 ratio 12/10/2024 5:16 PM CDT [facility] TOTAL PROTEIN 7.2 6.0 - 8.0 g/dL 12/10/2024 5:16 PM CDT [facility] ALBUMIN 4.5 3.5 - 5.0 g/dL 12/10/2024 5:16 PM CDT [facility] A/G RATIO 1.7 1.0 - 2.2 12/10/2024 5:16 PM CDT [facility] CALCIUM 8.8 8.7 - 10.5 mg/dL 12/10/2024 5:16 PM CDT [facility] T BILI 1.3(H) 0.2 - 1.2 mg/dL 12/10/2024 5:16 PM CDT [facility] SGOT (AST) 24 <43 U/L 12/10/2024 5:16 PM CDT [facility] SGPT (ALT) 19 <56 U/L 12/10/2024 5:16 PM CDT [facility] ALKALINE PHOSPHATASE 92 40 - 150 U/L 12/10/2024 5:16 PM CDT [facility] IS THE PATIENT REQUIRED TO BE FASTING? No 12/10/2024 5:16 PM CDT [facility] GFR, ESTIMATED >60 >=60 12/10/2024 5:16 PM CDT [facility] Comment: Creatinine Clearance is the preferred criteria for selecting drug dose adjustments in renally impaired patients. The GFR is provided as additional pertinent clinical information. GFR is reported in mL/min/1.73 sq m. Calculation based on the Chronic Kidney Disease Epidemiology Collaboration (CKD- EPI) equation refit without adjustment for race. GFR, EST. >60 >=60 025 5:16 PM CDT [facility] GFR, EST. NONAFRICAN >60 >=60 12/10/2024 5:16 PM CDT [facility] Blood Venipuncture / Unknown 12/10/2024 4:33 PM CDT 12/10/2024 4:45 PM CDT us Tiesha Riggs MD CHEMISTRY ORDERABLES Final Resul t [facility] [address] [facility] [place] [address] * ELECTROCARDIOGRAM, COMPLETE (12/10/2024 2:30 PM CDT) Narrative Tiesha Riggs MD - 12/10/2024 2:30 PM CDT Tiesha Riggs MD 12/10/2024 4:46 PM NSR, LBBB, no acute ST/T changes Tiesha Riggs MD IMG ECG ORDERABLES Final Result from Last 3 Months Insurance MEDICARE Care Teams Alternative Education Teacher Relationship Specialty Start Date End Date Ben Araujo, MEDICAL ASSISTANT PER DIEM, HEEL CEMENTER [address] [place] [address] PCP - General Adult Medicine 12/17/24 Keshawn Acevedo MD [address] [address] [address] Consulting Physician Cardiology 06/20/24 T[address]ha Riggs MD [address] [facility] [address] [place] [address] Consulting Physician Cardiovascular Disease - Cardiology 12/11/24
== END 2025-03-10 13:54 | disposition home or self-care (01) ==
PROVIDERS: PCP Nurse Practitioner; Visit Provider Nurse Practitioner
DX: G62.9 Polyneuropathy, unspecified (principal)
CPT/HCPCS: 95886; 95910